=== PATIENT | male | born 1945 | race Caucasian/White ===

== ENCOUNTER → 2020-04-21 13:39 | Outpatient (BNVA) | payer BC, SELFPAY | PROVIDERS: PCP Internal Medicine; Visit Provider Urology | DX: Z76.89 Persons encountering health services in other specified circumstances (principal) ==

== ENCOUNTER → 2020-12-06 08:31 | Outpatient (BNVA) | payer BC, SELFPAY | PROVIDERS: PCP Internal Medicine; Visit Provider Urology ==

== ENCOUNTER → 2021-06-07 10:57 | Outpatient (BNVA) | payer BC, SELFPAY | PROVIDERS: PCP Internal Medicine; Visit Provider Urology ==

== ENCOUNTER → 2022-03-21 13:59 | Outpatient (BNVA) | payer BC, SELFPAY | PROVIDERS: PCP Physician Assistant Medical; Visit Provider Urology | DX: C61 Malignant neoplasm of prostate (principal); C77.2 Secondary and unspecified malignant neoplasm of intra-abdominal lymph nodes | CPT/HCPCS: 51798 ==

== ENCOUNTER 2022-06-25 11:37 | Outpatient (REF) | payer BC, SELFPAY ==
[2022-06-25 13:26] LABS: Prostate Specific Antigen 2.89 ng/mL (<0.05-4.0)
[2022-06-30 20:17] LABS: Testosterone, Total 386 ng/dL (250-1100)
== END 2022-06-25 11:38 | disposition home or self-care (01) ==
LOC: HO.LAB 11:37
PROVIDERS: PCP Physician Assistant Medical; Visit Provider Urology
DX: Z12.5 Encounter for screening for malignant neoplasm of prostate (principal); C61 Malignant neoplasm of prostate; C77.2 Secondary and unspecified malignant neoplasm of intra-abdominal lymph nodes
CPT/HCPCS: 36415; 84153; 84403

== ENCOUNTER → 2022-07-02 10:42 | Outpatient (BNVA) | payer BC, SELFPAY | PROVIDERS: PCP Physician Assistant Medical; Visit Provider Urology | DX: C61 Malignant neoplasm of prostate (principal) ==

== ENCOUNTER → 2022-10-25 13:57 | Outpatient (BNVA) | payer BC, SELFPAY | PROVIDERS: PCP Physician Assistant Medical; Visit Provider Urology ==

== ENCOUNTER 2023-01-29 12:54 | Outpatient (AMB) | payer BC, SELFPAY ==
--- NOTE | 2023-01-29 12:55 | A.OFFVIS_ITS ---
Intake Intake Visit Reasons: 3M PSA/Testo(set) Intake Note: Patient is present for Follow Up Labs Urology Med: Bicalutamide, Finasteride, Oxybutynin, tamsulosin Antibiotic Allergy: none Blood Thinner: Eliquis [facility]acy: [facility] [place] Allergies celecoxib [From CELEBREX] Allergy (Severe, Verified 01/29/23 12:56) HYPOTENSION Medication List - Last Reconciled 01/29/23 by Daniel Duenas MD abiraterone 1,000 mg (4 x 250 mg) PO DAILY 30 days amlodipine 5 mg PO DAILY apixaban (Eliquis) 5 mg PO BID apixaban (Eliquis) 2.5 mg PO BID bicalutamide 50 mg PO DAILY 90 days diltiazem HCl 180 mg PO DAILY diltiazem HCl ER 120 mg PO DAILY doxycycline hyclate 100 mg PO BID finasteride 5 mg PO DAILY 90 days furosemide 20 mg PO DAILY hydralazine 25 mg PO BID hydralazine 50 mg PO TID latanoprost 0.005% 1 drp ophthalmic (eye) BEDTIME lisinopril 40 mg PO DAILY lovastatin 20 mg PO BEDTIME oxybutynin chloride ER 5 mg PO DAILY 90 days prednisone 5 mg PO BID 30 days sodium chloride 1 g PO DAILY sodium chloride 1,000 mg PO DAILY tamsulosin 0.4 mg PO BEDTIME tamsulosin 0.4 mg PO BEDTIME 90 days timolol maleate 0.5% 1 drp ophthalmic (eye) HPI HPI Comments History of Present Illness Details Uzair is a pleasant male. He is a patient of Dr. Brooks. He is seen for the following urologic conditions - prostate cancer - metastatic Continued good energy Cycling abiraterone Will check labs during on month Needs bone density 01/05 PSA 1.2 T 630 11/05 - PSMA Scan - persistent inessa nodule activity less than previously Continues with bicalutamide and cycling abiraterone - PSA 0.5 Continue current therapy Prostate cancer metastatic 03/07 abiraterone reduced to 3 tabs daily - admitted to [facility] with DVT PSA 12/05 2.3, 01/04 4 - doubling time less than 6 months, 03/07 0.8 T 23, 07/08 2.9, 10/06 0.5 Imaging - 12/05 PSMA scan [facility] hilar node positive - 02/04 CT chest no change in apoorva status Did not tolerate prior GnRH injection - had anxiety with gynecomastia Therapeutic plan -01/04 initiate abiraterone for metastatic disease and assessment for targeted radiotherapy 09/01 PSA 1.1, 11/01 PSA 1.3, 04/03 0.9, 08/05 0.3, 12/03 0.3, 04/04 0.2, 12/04 0.1, 06/05 0.3, 12/05 2.3, 01/04 4, 07/08 2.9 T 386, Prostate cancer: Intermediate risk [place] 3 + 4 external beam radiation short- term hormones 01/31 Prostate cancer was diagnosed 08/31 Dr Marvin. Diagnosis was reached by 08/31 , needle biopsy, PSA at diagnosis 8.3. The [place] grade is [place] Unkown - , 3+4 = 7. TNM Classification of Malignant Tumours (TNM) T1c. The D'Laila (NCCN) risk category is Intermediate Risk (PSA 10-20, Gl 7, T2), Group 2. Initial therapy included Primary treatment , External beam radiation with short term hormonal ablation - [facility] [place] 01/31 completed. 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 Surgical History History of surgery Review of Systems Const Denies chills and Denies fever(s) Card Reports no additional complaints and Denies syncope Resp Denies cough GI Denies abdominal pain and Denies heartburn Reports as per HPI and Denies change in libido Neuro Denies syncope Psych Denies change in libido Endo Denies change in libido Physical Exam Const General: cooperative, healthy appearing, comfortable and no acute distress Orientation/consciousness: patient oriented x3 HEENT Face and sinus: Yes normal facial exam Mouth: moist mucous membranes Neck Neck: Yes normal visual inspection, Yes full ROM and Yes trachea midline Chest Chest palpation & inspection: normal inspection of the chest Resp Effort & Inspection: normal respiratory effort, able to speak in complete sentences and no respiratory distress GI Inspection: Yes normal to inspection Back/Spine/Pelvis Cervical Spine: normal cervical lordosis Thoracic/Lumbar Spine: thoracic and lumbar spine normal to inspection Skin General skin exam: no rashes or lesions noted Neuro General: patient oriented x3, gait normal, tone normal and moves all extremities Extrem General: Yes normal to inspection and Yes capillary refill normal Assessment & Plan Assessment & Plan (1) Prostate cancer metastatic to intraabdominal lymph node: Code(s): C61 - Malignant neoplasm of prostate; C77.2 - Secondary and unspecified malignant neoplasm of intra-abdominal lymph nodes (2) Erectile dysfunction following radiation therapy: Code(s): N52.35 - Erectile dysfunction following radiation therapy Plan Three month follow-up labs with imaging Orders: Orders Prostate Specific Antigen 2 Months C61 - Malignant neoplasm of prostate, C77.2 - Secondary and unspecified malignant neoplasm of intra-abdominal lymph nodes, E11.69 - Type 2 diabetes mellitus with other specified complication, N52.1 - Erectile dysfunction due to diseases classified elsewhere Testosterone, Total 2 Months C61 - Malignant neoplasm of prostate, C77.2 - Secondary and unspecified malignant neoplasm of intra-abdominal lymph nodes XR DEXA axial skeleton 2 Months C61 - Malignant neoplasm of prostate, C77.2 - Secondary and unspecified malignant neoplasm of intra-abdominal lymph nodes, M85.80 - Other specified disorders of bone density and structure, unspecified site Patient Instructions: Imaging studies, laboratory and physical exam results were discussed and reviewed in detail. No major barriers to patient understanding were identified. An opportunity to ask questions regarding the treatment plan was provided. All questions were answered. The patient expressed understanding and agreement with the above treatment plan. The patient is aware they should contact our office by phone for worsening of their current condition or the appearance of new urologic symptoms. Compliance is encouraged with any medications and followup testing that is ordered. It is a privilege to participate in the urologic care of your patient. If you have any questions or concerns regarding treatment for the above conditions, or other urologic issues, please do not hesitate to contact me. The office telephone contact is [phone]. This note is constructed using voice recognition software. While every effort has been made to ensure accuracy fws faculty assistant errors may have been included. Yours sincerely, Dr Daniel Duenas MD, ALEJANDRO [facility] - Urology Providers of Expert, Compassionate Care for the Genitourinary System Coding Level of Care Code Est Pt Level 3 (64628) Diagnoses Prostate cancer metastatic to intraabdominal lymph node C61; C77.2 Erectile dysfunction following radiation therapy N52.35
== END 2023-01-29 13:24 | disposition home or self-care (01) ==
PROVIDERS: Visit Provider Urology
DX: C61 Malignant neoplasm of prostate (principal); C77.2 Secondary and unspecified malignant neoplasm of intra-abdominal lymph nodes; N52.35 Erectile dysfunction following radiation therapy
CPT/HCPCS: 99213

== ENCOUNTER → 2023-01-29 12:54 | Outpatient (BNVA) | payer BC, SELFPAY | PROVIDERS: Visit Provider Urology ==

== ENCOUNTER 2023-04-01 12:19 | Outpatient (REF) | payer BC, SELFPAY ==
--- NOTE | ~2023-04-01 | MM_ITS ---
EXAMINATION: BONE DENSITOMETRY CLINICAL INDICATION: Disorders of bone and structures. COMPARISON: This is the patient's baseline examination. TECHNIQUE: Using a [employer] DXA System (software version: 13.1) manufactured by [employer], dual-energy x-ray absorptiometry was performed of the lumbar spine and left hip. The images are of good technical quality. Summary results are attached. FINDINGS: AP SPINE L1-L4: BMD 1.224 g/cm2, Z-score 0.3, T-score 0.0, normal. LEFT FEMUR, NECK: BMD 0.857 g/cm2, Z-score -0.5, T-score -1.6, osteopenia. LEFT FEMUR, TOTAL: BMD 0.773 g/cm2, Z-score -1.6, T-score -2.3, osteopenia. IDENTIFIED RISK FACTORS: History of adult fracture. HISTORY OF FRACTURE: Wrist. MEDICATIONS: None listed. MM/XR DEXA axial skeleton IMPRESSION: 1. DIAGNOSIS: Osteopenia based on the lowest T-score value of -2.3 in the total femur applying World Health Organization criteria. 2. 10-YEAR FRACTURE RISK PREDICTION, FRAX: Major osteoporotic fracture (clinical spine, forearm, hip or shoulder) 11.1%. Hip fracture 3.3%. 3. Treatment Recommendations: NOF guidelines recommend consideration for treatment in postmenopausal women and men age 50 and older presenting with the following: -A hip or vertebral (clinical or morphometric) fracture. -T-score less than or equal to -2.5 at the femoral neck or spine after appropriate evaluation to exclude secondary causes. -Low bone mass at the hip or spine and a 10-year fracture probability by FRAX of greater than or equal to 3% for hip fracture or greater than or equal to 20% for major osteoporotic fracture based on the [place] adapted WHO algorithm. 4. Other Recommendations: All treatment decisions require clinical judgment and consideration of individual patient factors, including patient preferences, comorbidities, previous drug use, risk factors not captured in the FRAX model (e.g. frailty, falls, vitamin D deficiency, increased bone turnover, interval significant decline in bone density) and possible under or overestimation of fracture risk by FRAX. Additional medical evaluation for secondary cause of low bone mineral density may be appropriate. FUTURE SCAN RECOMMENDATION: People with diagnosed cases of osteoporosis or at high risk for fracture should have regular bone mineral density tests. For patients eligible for Medicare, routine testing is allowed once every 2 years. The testing frequency can be increased to one year for patients who have rapidly progressing disease, those who are receiving or discontinuing medical therapy to restore bone mass, or have additional risk factors.
[2023-04-01 14:43] LABS: Prostate Specific Antigen 2.41 ng/mL (<0.05-4.0)
[2023-04-04 13:19] LABS: Testosterone, Total 633 ng/dL (250-1100)
== END 2023-04-01 12:20 | disposition home or self-care (01) ==
LOC: HO.MAMMO 12:19
PROVIDERS: PCP Physician Assistant Medical; Visit Provider Urology
DX: Z13.820 Encounter for screening for osteoporosis (principal); Z12.5 Encounter for screening for malignant neoplasm of prostate; M85.852 Other specified disorders of bone density and structure, left thigh; C61 Malignant neoplasm of prostate; C77.2 Secondary and unspecified malignant neoplasm of intra-abdominal lymph nodes; E11.69 Type 2 diabetes mellitus with other specified complication; N52.1 Erectile dysfunction due to diseases classified elsewhere
CPT/HCPCS: 36415; 77080; 84153; 84403

== ENCOUNTER 2023-04-11 08:44 | Outpatient (AMB) | payer BC, SELFPAY ==
--- NOTE | 2023-04-11 08:45 | MHC.OFFVIS ---
Intake Intake Visit Reasons: follow up/labs/bone density(set) Intake Note: Patient is Present for Telephone Follow Up Urology Med: Tamsulosin,Oxybutynin, Finasteride,Bicalutamide, Abiraterone Antibiotic Allergy: None Blood Thinner: Eliquis [facility] Allergies celecoxib [From CELEBREX] Allergy (Severe, Verified 04/11/23 08:47) HYPOTENSION Medication List - Last Reconciled 04/11/23 by Daniel Duenas MD abiraterone 1,000 mg (4 x 250 mg) PO DAILY 30 days amlodipine 5 mg PO DAILY apixaban (Eliquis) 5 mg PO BID apixaban (Eliquis) 2.5 mg PO BID bicalutamide 50 mg PO DAILY 90 days diltiazem HCl 180 mg PO DAILY diltiazem HCl ER 120 mg PO DAILY doxycycline hyclate 100 mg PO BID finasteride 5 mg PO DAILY 90 days furosemide 20 mg PO DAILY hydralazine 25 mg PO BID hydralazine 50 mg PO TID latanoprost 0.005% 1 drp ophthalmic (eye) BEDTIME lisinopril 40 mg PO DAILY lovastatin 20 mg PO BEDTIME oxybutynin chloride ER 5 mg PO DAILY 90 days prednisone 5 mg PO BID 30 days sodium chloride 1 g PO DAILY sodium chloride 1,000 mg PO DAILY tamsulosin 0.4 mg PO BEDTIME tamsulosin 0.4 mg PO BEDTIME 90 days timolol maleate 0.5% 1 drp ophthalmic (eye) HPI HPI Comments History of Present Illness Details Uzair is a pleasant male. He is a patient of Dr. Brooks. He is seen for the following urologic conditions - prostate cancer - metastatic Telemedicine Evaluation 15 min Consultation Doximity Noe Video attempted Cycling abiraterone Bone density shows osteopenia Recommend Citracal Has been feeling weak despite testosterone 633 Repeat lab work with PSMA scan in 3 months 04/07 P2.4 T 633 01/05 PSA 1.2 T 630 11/05 - PSMA Scan - persistent inessa nodule activity less than previously Continues with bicalutamide and cycling abiraterone - PSA 0.5 Continue current therapy Prostate cancer metastatic 03/07 abiraterone reduced to 3 tabs daily - admitted to [facility] with DVT PSA 12/05 2.3, 01/04 4 - doubling time less than 6 months, 03/07 0.8 T 23, 07/08 2.9, 10/06 0.5 Imaging - 12/05 PSMA scan [facility] hilar node positive - 02/04 CT chest no change in apoorva status Did not tolerate prior GnRH injection - had anxiety with gynecomastia Therapeutic plan -01/04 initiate abiraterone for metastatic disease and assessment for targeted radiotherapy 09/01 PSA 1.1, 11/01 PSA 1.3, 04/03 0.9, 08/05 0.3, 12/03 0.3, 04/04 0.2, 12/04 0.1, 06/05 0.3, 12/05 2.3, 01/04 4, 07/08 2.9 T 386, Prostate cancer: Intermediate risk [place] 3 + 4 external beam radiation short-term hormones 01/31 Prostate cancer was diagnosed 08/31 Dr Marvin. Diagnosis was reached by 08/31 , needle biopsy, PSA at diagnosis 8.3. The [place] grade is [place] Unkown - , 3+4 = 7. TNM Classification of Malignant Tumours (TNM) T1c. The [place]aila (NCCN) risk category is Intermediate Risk (PSA 10-20, Gl 7, T2), Group 2. Initial therapy included Primary treatment , External beam radiation with short term hormonal ablation - [facility] [place] 01/31 completed. 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 Prostate cancer Surgical History History of surgery Assessment & Plan Assessment & Plan (1) Prostate cancer metastatic to intraabdominal lymph node: Code(s): C61 - Malignant neoplasm of prostate; C77.2 - Secondary and unspecified malignant neoplasm of intra-abdominal lymph nodes (2) Erectile dysfunction following radiation therapy: Code(s): N52.35 - Erectile dysfunction following radiation therapy Plan Three month follow-up imaging and labs Orders: Orders PET CT fusion skull to thigh 3 Months C61 - Malignant neoplasm of prostate, C77.2 - Secondary and unspecified malignant neoplasm of intra-abdominal lymph nodes Prostate Specific Antigen 3 Months C61 - Malignant neoplasm of prostate, C77.2 - Secondary and unspecified malignant neoplasm of intra-abdominal lymph nodes Testosterone, Total 3 Months C61 - Malignant neoplasm of prostate, C77.2 - Secondary and unspecified malignant neoplasm of intra-abdominal lymph nodes Patient Instructions: Imaging studies, laboratory and physical exam results were discussed and reviewed in detail. No major barriers to patient understanding were identified. An opportunity to ask questions regarding the treatment plan was provided. All questions were answered. The patient expressed understanding and agreement with the above treatment plan. The patient is aware they should contact our office by phone for worsening of their current condition or the appearance of new urologic symptoms. Compliance is encouraged with any medications and followup testing that is ordered. It is a privilege to participate in the urologic care of your patient. If you have any questions or concerns regarding treatment for the above conditions, or other urologic issues, please do not hesitate to contact me. The office telephone contact is [phone]. This note is constructed using voice recognition software. While every effort has been made to ensure accuracy utility repairer errors may have been included. Yours sincerely, Dr Daniel Duenas MD, ALEJANDRO [facility] - Urology Providers of Expert, Compassionate Care for the Genitourinary System Telehealth Telehealth Location of provider rendering services: practice address Location of patient: address on file Patient Identification confirmed using: Name, : Yes Telehealth method: video Patient verbally consented to treatment: Yes Patient verbally consented to billing insurance company: Yes Patient informed of any privacy concerns related to visit: Yes Coding Level of Care Code Tele Est Pt Level 3 (11848) Diagnoses Prostate cancer metastatic to intraabdominal lymph node C61; C77.2 Erectile dysfunction following radiation therapy N52.35
== END 2023-04-11 09:38 | disposition home or self-care (01) ==
LOC: HO.HUSH 08:44
PROVIDERS: PCP Physician Assistant Medical; Visit Provider Urology
DX: C61 Malignant neoplasm of prostate (principal); C77.2 Secondary and unspecified malignant neoplasm of intra-abdominal lymph nodes; N52.35 Erectile dysfunction following radiation therapy
CPT/HCPCS: 99213

== ENCOUNTER → 2023-04-11 08:44 | Outpatient (BNVA) | payer BC, SELFPAY | PROVIDERS: PCP Physician Assistant Medical; Visit Provider Urology ==

== ENCOUNTER 2023-08-28 09:59 | Outpatient (AMB) | payer BC, SELFPAY ==
--- NOTE | 2023-08-28 09:59 | A.OFFVIS_ITS ---
Intake Intake Visit Reasons: PET/CT/PSA(SET) Intake Note: Patient presents today for a telehealth follow-up on Imaging and PSA Meds- Finasteride, Tamsulosin, Allergies to Antibiotic- No Known Allergies Blood Thinner- Eliquis Jump Roll Operator Required: No Allergies celecoxib [From CELEBREX] Allergy (Severe, Verified 08/28/23 10:01) HYPOTENSION Medication List - Last Reconciled 08/28/23 by Daniel Duenas MD abiraterone 1,000 mg (4 x 250 mg) PO DAILY 30 days amlodipine 5 mg PO DAILY apixaban (Eliquis) 5 mg PO BID apixaban (Eliquis) 2.5 mg PO BID bicalutamide 50 mg PO DAILY 90 days diltiazem HCl 180 mg PO DAILY diltiazem HCl ER 120 mg PO DAILY doxycycline hyclate 100 mg PO BID finasteride 5 mg PO DAILY 90 days furosemide 20 mg PO DAILY hydralazine 25 mg PO BID hydralazine 50 mg PO TID latanoprost 0.005% 1 drp ophthalmic (eye) BEDTIME lisinopril 40 mg PO DAILY lovastatin 20 mg PO BEDTIME oxybutynin chloride ER 5 mg PO DAILY 90 days prednisone 5 mg PO BID 30 days sodium chloride 1 g PO DAILY sodium chloride 1,000 mg PO DAILY tamsulosin 0.4 mg PO BEDTIME tamsulosin 0.4 mg PO BEDTIME 90 days timolol maleate 0.5% 1 drp ophthalmic (eye) HPI HPI Comments History of Present Illness Details Uzair is a pleasant male. He is a patient of Dr. Reyes. He is seen for the following urologic conditions - prostate cancer - metastatic - oncology Dr Mook Everett Telemedicine Evaluation 15 min Consultation DoximBarnacle Noe Video attempted Has upcoming lung biopsy to determine if node is prostate cancer versus lung cancer Has seen Dr. Delvalle in oncology Marguerite Stopped abiraterone since has weakness and instability of gait Does not tolerate GnRH secondary to increased anxiety Working with oncology to find secondary options for chemotherapy Three-month follow-up PSA/T 08/09 8.0 PSMA - similar activity pattern with persistent hilar nodule, persistent abdominal nodule both less than 1 cm. New activity within prostate. Rise in PSA likely due to stopping abiraterone 04/07 P2.4 T 633 01/05 PSA 1.2 T 630 11/05 - PSMA Scan - persistent hilar nodu le activity less than previously Continues with bicalutamide and cycling abiraterone - PSA 0.5 Continue current therapy Prostate cancer metastatic 03/07 abiraterone reduced to 3 tabs daily - admitted to [facility] with DVT PSA 12/05 2.3, 01/04 4 - doubling time less than 6 months, 03/07 0.8 T 23, 07/08 2.9, 10/06 0.5 Imaging - 12/05 PSMA scan [facility] hilar no de positive - 02/04 CT chest no change in apoorva statu s Did not tolerate prior GnRH injection - had anxiety with gynecomastia Therapeutic plan -01/04 initiate abiraterone for metastati c disease and assessment for targeted radiotherapy 09/01 PSA 1.1, 11/01 PSA 1.3, 04/03 0.9, 0.3, 12/03 0.3, 04/04 0.2, 12/04 0.1, 06/05 0.3, 12/05 2.3, 01/04 4, 07/08 2.9 T 386, Prostate cancer: Intermediate risk [place] 3 + 4 external beam radiation short- term hormones 01/31 Prostate cancer was diagnosed 08/31 Dr Marvin. Diagnosis was reached by 08/31 , needle biopsy, PSA at diagnosis 8.3. The [place] grade is [place] Unkown - , 3+4 = 7. TNM Classification of Malignant Tumours (TNM) T1c. The [place] (NCCN) risk category is Intermediate Risk (PSA 10-20, Gl 7, T2), Group 2. Initial therapy included Primary treatment , External beam radiation with short term hormonal ablation - [facility] 01/31 completed. 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 Prostate cancer Surgical History History of surgery Review of Systems Const All systems reviewed & are unremarkable except as noted in HPI and below Reports no additional complaints Resp Reports no additional complaints GI Reports no additional complaints Reports as per HPI Musc Reports no additional complaints Physical Exam Telemedicine evaluation Appropriate responses Regular breathing rate and rhythm HEENT Head: Yes normal to inspection Ears: hearing grossly normal bilaterally Eyes General: appearance normal, both eyes and all related structures Neck Neck: Yes normal visual inspection Chest Chest palpation & inspection: normal inspection of the chest Resp Effort & Inspection: normal respiratory effort and able to speak in complete sentences Assessment & Plan Assessment & Plan (1) Prostate cancer metastatic to intraabdominal lymph node: Code(s): C61 - Malignant neoplasm of prostate; C77.2 - Secondary and unspecified malignant neoplasm of intra-abdominal lymph nodes Plan Three month follow-up lab work Orders: Orders Prostate Specific Antigen 3 Months C61 - Malignant neoplasm of prostate, C77.2 - Secondary and unspecified malignant neoplasm of intra-abdominal lymph nodes Testosterone, Total 3 Months C61 - Malignant neoplasm of prostate, C77.2 - Secondary and unspecified malignant neoplasm of intra-abdominal lymph nodes Patient Instructions: Imaging studies, laboratory and physical exam results were discussed and reviewed in detail. No major barriers to patient understanding were identified. An opportunity to ask questions regarding the treatment plan was provided. All questions were answered. The patient expressed understanding and agreement with the above treatment plan. The patient is aware they should contact our office by phone for worsening of their current condition or the appearance of new urologic symptoms. Compliance is encouraged with any medications and followup testing that is ordered. It is a privilege to participate in the urologic care of your patient. If you have any questions or concerns regarding treatment for the above conditions, or other urologic issues, please do not hesitate to contact me. The office telephone contact is [phone]. This note is constructed using voice recognition software. While every effort has been made to ensure accuracy fine craft artist errors may have been included. Yours sincerely, Dr Daniel Duenas MD, ALEJANDRO [facility] - Urology Providers of Expert, Compassionate Care for the Genitourinary System Telehealth Telehealth Location of provider rendering services: practice address Location of patient: address on file Patient Identification confirmed using: Name, : Yes Telehealth method: video Patient verbally consented to treatment: Yes Patient verbally consented to billing insurance company: Yes Patient informed of any privacy concerns related to visit: Yes Coding Level of Care Code Tele Est Pt Level 3 (48471) Diagnoses Prostate cancer metastatic to intraabdominal lymph node C61; C77.2
== END 2023-08-28 11:01 | disposition home or self-care (01) ==
LOC: HO.HUSH 09:59
PROVIDERS: PCP Physician Assistant Medical; Visit Provider Urology
DX: C61 Malignant neoplasm of prostate (principal); C77.2 Secondary and unspecified malignant neoplasm of intra-abdominal lymph nodes
CPT/HCPCS: 99213

== ENCOUNTER → 2023-08-28 09:59 | Outpatient (BNVA) | payer BC, SELFPAY | PROVIDERS: PCP Physician Assistant Medical; Visit Provider Urology ==

== ENCOUNTER 2023-11-20 13:52 | Outpatient (REF) | payer BC, SELFPAY ==
[2023-11-20 15:50] LABS: Prostate Specific Antigen 14.47 ng/mL (<0.05-4.0)
[2023-11-27 14:58] LABS: Testosterone, Free 50.7 pg/mL (30.0-135.0); Testosterone, Total 433 ng/dL (250-1100)
== END 2023-11-20 13:53 | disposition home or self-care (01) ==
LOC: HO.LAB 13:52
PROVIDERS: PCP Physician Assistant Medical; Visit Provider Urology
DX: C61 Malignant neoplasm of prostate (principal); C77.2 Secondary and unspecified malignant neoplasm of intra-abdominal lymph nodes; Z12.5 Encounter for screening for malignant neoplasm of prostate
CPT/HCPCS: 36415; 84153; 84402; 84403

== ENCOUNTER 2023-11-26 13:31 | Outpatient (AMB) | payer BC, SELFPAY ==
--- NOTE | 2023-11-26 13:46 | MHC.OFFVIS ---
Intake Visit Reasons: 3m/PSA/Testo(set) Intake Note: Patient is Present for Follow Up Urology Medication:Finasteride, Oxybutynin,Tamsulosin (No longer on Abiraterone/Bicalutamide) Antibiotic Allergies: None Blood Thinners:Eliquis Allergies celecoxib [From CELEBREX] Allergy (Severe, Verified 11/26/23 13:51) HYPOTENSION HPI Comments Details: Uzair is a pleasant male. He is a patient of Dr. Reyes. He is seen for the following urologic conditions - prostate cancer - metastatic - oncology Dr Mook Everett 12/07 PSA 14 Has PET-CT scan in January with Dr Delvalle Did discuss potentially trialing Enzalutamide See in 3 months with lab work Has seen Dr. Delvalle in oncology [facility] Stopped abiraterone since has weakness and instability of gait Does not tolerate GnRH secondary to increased anxiety Working with oncology to find secondary options for chemotherapy 08/09 8.0 PSMA - similar activity pattern with persistent hilar nodule, persistent abdominal nodule both less than 1 cm. New activity within prostate. Rise in PSA likely due to stopping abiraterone 04/07 P2.4 T 633 DEXA - osteopenia 01/05 PSA 1.2 T 630 11/05 - PSMA Scan - persistent hilar nodule activity less than previously Continues with bicalutamide and cycling abiraterone - PSA 0.5 Continue current therapy Prostate cancer metastatic 03/07 abiraterone reduced to 3 tabs daily - admitted to [facility] with DVT PSA 12/05 2.3, 01/04 4 - doubling time less than 6 months, 03/07 0.8 T 23, 07/08 2.9, 10/06 0.5 Imaging - 12/05 PSMA scan [facility] hilar node positive - 02/04 CT chest no change in apoorva status Did not tolerate prior GnRH injection - had anxiety with gynecomastia Therapeutic plan -01/04 initiate abiraterone for metastatic disease and assessment for targeted radiotherapy 09/01 PSA 1.1, 11/01 PSA 1.3, 04/03 0.9, 08/05 0.3, 12/03 0.3, 04/04 0.2, 12/04 0.1, 06/05 0.3, 12/05 2.3, 01/04 4, 07/08 2.9 T 386, Prostate cancer: Intermediate risk Lorie 3 + 4 external beam radiation short-term hormones 01/31 Prostate cancer was diagnosed 08/31 Dr Marvin. Diagnosis was reached by 08/31 , needle biopsy, PSA at diagnosis 8.3. The [place] grade is [place] Unkown - , 3+4 = 7. TNM Classification of Malignant Tumours (TNM) T1c. The D'Laila (NCCN) risk category is Intermediate Risk (PSA 10-20, Gl 7, T2), Group 2. Initial therapy included Primary treatment , External beam radiation with short term hormonal ablation - [facility] 01/31 completed. 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 Prostate cancer Surgical History History of surgery Review of Systems Const Denies chills and Denies fever(s) Card Reports no additional complaints and Denies syncope Resp Denies cough GI Denies abdominal pain and Denies heartburn Reports as per HPI and Denies change in libido Neuro Denies syncope Psych Denies change in libido Endo Denies change in libido Physical Exam Const General: cooperative, healthy appearing, comfortable and no acute distress Orientation/consciousness: patient oriented x3 HEENT Face and sinus: Yes normal facial exam Mouth: moist mucous membranes Neck Neck: Yes normal visual inspection, Yes full ROM and Yes trachea midline Chest Chest palpation & inspection: normal inspection of the chest Resp Effort & Inspection: normal respiratory effort, able to speak in complete sentences and no respiratory distress GI Inspection: Yes normal to inspection Back/Spine/Pelvis Cervical Spine: normal cervical lordosis Thoracic/Lumbar Spine: thoracic and lumbar spine normal to inspection Skin General skin exam: no rashes or lesions noted Neuro General: patient oriented x3, gait normal, tone normal and moves all extremities Extrem General: Yes normal to inspection and Yes capillary refill normal Assessment & Plan Assessment & Plan (1) Prostate cancer metastatic to intraabdominal lymph node: Code(s): C61 - Malignant neoplasm of prostate; C77.2 - Secondary and unspecified malignant neoplasm of intra-abdominal lymph nodes Category: Medical (2) Prostate cancer: Comment: Gl 3+4 with XRT Code(s): C61 - Malignant neoplasm of prostate Category: Medical Plan Three-month follow-up labs Orders: Orders PSA,Total (Free>4and<10) 3 Months C61 - Malignant neoplasm of prostate, C77.2 - Secondary and unspecified malignant neoplasm of intra-abdominal lymph nodes Patient Instructions: Imaging studies, laboratory and physical exam results were discussed and reviewed in detail. No major barriers to patient understanding were identified. An opportunity to ask questions regarding the treatment plan was provided. All questions were answered. The patient expressed understanding and agreement with the above treatment plan. The patient is aware they should contact our office by phone for worsening of their current condition or the appearance of new urologic symptoms. Compliance is encouraged with any medications and followup testing that is ordered. It is a privilege to participate in the urologic care of your patient. If you have any questions or concerns regarding treatment for the above conditions, or other urologic issues, please do not hesitate to contact me. The office telephone contact is [phone]. This note is constructed using voice recognition software. While every effort has been made to ensure accuracy web press roll tender errors may have been included. Yours sincerely, Dr Daniel Duenas MD, [facility] - Urology Providers of Expert, Compassionate Care for the Genitourinary System Coding Level of Care Code Est Pt Level 3 (87643) Diagnoses Prostate cancer metastatic to intraabdominal lymph node C61; C77.2 Prostate cancer C61
== END 2023-11-26 14:32 | disposition home or self-care (01) ==
PROVIDERS: PCP Physician Assistant Medical; Visit Provider Urology
DX: C61 Malignant neoplasm of prostate (principal); C77.2 Secondary and unspecified malignant neoplasm of intra-abdominal lymph nodes
CPT/HCPCS: 99213

== ENCOUNTER → 2023-11-26 13:31 | Outpatient (BNVA) | payer BC, SELFPAY | PROVIDERS: PCP Physician Assistant Medical; Visit Provider Urology ==

== ENCOUNTER 2024-03-25 09:12 | Outpatient (AMB) | payer BC, SELFPAY ==
--- NOTE | 2024-03-25 09:12 | A.OFFVIS_ITS ---
Intake Visit Reasons: 3M PSA(set)Elevated Intake Note: Patient is Present for Telephone Follow Up PSA Urology Med: Bicalutamide, oxybutynin, tamsulosin, Finasteride Antibiotic Allergy:None Blood Thinner:Eliquis Recent PSA: 03/16/2024 PSA: 40.4 Deoiling Machine Operator Required: No Accompanied by: Self / Same As Patient Allergies celecoxib [From CELEBREX] Allergy (Severe, Verified 03/25/24 09:14) HYPOTENSION HPI Comments Details: Uzair is a pleasant male. He is a patient of Dr. Reyes. He is seen for the following urologic conditions - prostate cancer - metastatic - oncology Dr Mook Everett Telemedicine Evaluation 15 min Consultation [employer] Noe Video 04/08 PSA 40 Discussed rising PSA PET-CT was denied that he had planned with Prescription for enzalutamide placed Encouraged him to see oncologist within the next 3 months Three-month follow-up lab work 12/07 PSA 14 Has PET-CT scan in January with Dr Delvalle Did discuss potentially trialing Enzalutamide See in 3 months with lab work Has seen Dr. Delvalle in oncology [facility] Stopped abiraterone since has weakness and instability of gait Does not tolerate GnRH secondary to increased anxiety Working with oncology to find secondary options for chemotherapy 08/09 8.0 PSMA - similar activity pattern with persistent hilar nodule, persistent abdominal nodule both less than 1 cm. New activity within prostate. Rise in PSA likely due to stopping abiraterone 04/07 P2.4 T 633 DEXA - osteopenia 01/05 PSA 1.2 T 630 11/05 - PSMA Scan - persistent hilar nodule activity less than previously Continues with bicalutamide and cycling abiraterone - PSA 0.5 Continue current therapy Prostate cancer metastatic 03/07 abiraterone reduced to 3 tabs daily - admitted to [facility] with DVT PSA 12/05 2.3, 01/04 4 - doubling time less than 6 months, 03/07 0.8 T 23, 07/08 2.9, 10/06 0.5 Imaging - 12/05 PSMA scan [facility] hilar node positive - 02/04 CT chest no change in apoorva status Did not tolerate prior GnRH injection - had anxiety with gynecomastia Therapeutic plan -01/04 initiate abiraterone for metastatic disease and assessment for targeted radiotherapy 09/01 PSA 1.1, 11/01 PSA 1.3, 04/03 0.9, 08/05 0.3, 12/03 0.3, 04/04 0.2, 12/04 0.1, 06/05 0.3, 12/05 2.3, 01/04 4, 07/08 2.9 T 386, Prostate cancer: Intermediate risk Lorie 3 + 4 external beam radiation short- term hormones 01/31 Prostate cancer was diagnosed 08/31 Dr Marvin. Diagnosis was reached by 08/31 , needle biopsy, PSA at diagnosis 8.3. The Lorie grade is [place] Unkown - , 3+4 = 7. TNM Classification of Malignant Tumours (TNM) T1c. The D'Laila (NCCN) risk category is Intermediate Risk (PSA 10-20, Gl 7, T2), Group 2. Initial therapy included Primary treatment , External beam radiation with short term hormonal ablation - [facility] 01/31 completed. 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 Prostate cancer Surgical History History of surgery Review of Systems Const All systems reviewed & are unremarkable except as noted in HPI and below Reports no additional complaints Resp Reports no additional complaints GI Reports no additional complaints Reports as per HPI Musc Reports no additional complaints Physical Exam Telemedicine evaluation Appropriate responses Regular breathing rate and rhythm HEENT Head: Yes normal to inspection Ears: hearing grossly normal bilaterally Eyes General: appearance normal, both eyes and all related structures Neck Neck: Yes normal visual inspection Chest Chest palpation & inspection: normal inspection of the chest Resp Effort & Inspection: normal respiratory effort and able to speak in complete sentences Telehealth Telehealth Telehealth Platform: [employer] Location of provider rendering services: practice address Location of patient: address on file Patient Identification confirmed using: Name, : Yes Telehealth method: video Patient verbally consented to treatment: Yes Patient verbally consented to billing insurance company: Yes Patient informed of any privacy concerns related to visit: Yes Minutes spent on Phone/Video with Pt.: 15 Assessment & Plan Assessment & Plan (1) Prostate cancer metastatic to intraabdominal lymph node: Code(s): C61 - Malignant neoplasm of prostate; C77.2 - Secondary and unspecified malignant neoplasm of intra-abdominal lymph nodes Category: Medical Plan Bone scan Start enzalutamide Three-month follow-up Orders: Orders Testosterone, Total 3 Months C61 - Malignant neoplasm of prostate, C77.2 - Secondary and unspecified malignant neoplasm of intra-abdominal lymph nodes NM bone scan whole body Today C61 - Malignant neoplasm of prostate, C77.2 - Secondary and unspecified malignant neoplasm of intra-abdominal lymph nodes, C79.51 - Secondary malignant neoplasm of bone Prostate Specific Antigen 3 Months C61 - Malignant neoplasm of prostate, C77.2 - Secondary and unspecified malignant neoplasm of intra-abdominal lymph nodes Medications: New enzalutamide 160 mg (2 x 80 mg) PO DAILY 30 days 60 tabs 5RF metastatic prostate cancer C61 - Malignant neoplasm of prostate, C77.2 - Secondary and unspecified malignant neoplasm of intra-abdominal lymph nodes Discontinued abiraterone must be taken on empty stomach, at least 1 hr before or 2 hrs after a meal/food Discontinued Reason: Patient Completed Course 1,000 mg (4 x 250 mg) PO DAILY 30 days 120 tabs 5RF C61 - Malignant neoplasm of prostate, C77.2 - Secondary and unspecified malignant neoplasm of intra-abdominal lymph nodes Patient Instructions: Imaging studies, laboratory and physical exam results were discussed and reviewed in detail. No major barriers to patient understanding were identified. An opportunity to ask questions regarding the treatment plan was provided. All questions were answered. The patient expressed understanding and agreement with the above treatment plan. The patient is aware they should contact our office by phone for worsening of their current condition or the appearance of new urologic symptoms. Compliance is encouraged with any medications and followup testing that is ordered. It is a privilege to participate in the urologic care of your patient. If you have any questions or concerns regarding treatment for the above conditions, or other urologic issues, please do not hesitate to contact me. The office telephone contact is [phone]. This note is constructed using voice recognition software. While every effort has been made to ensure accuracy steam plant operator errors may have been included. Yours sincerely, Dr Daniel Duenas MD, [facility] - Urology Providers of Expert, Compassionate Care for the Genitourinary System Coding Level of Care Code Tele Est Pt Level 4 (79207) Diagnoses Prostate cancer metastatic to intraabdominal lymph node C61; C77.2
== END 2024-03-25 10:25 | disposition home or self-care (01) ==
LOC: HO.HUSH 09:12
PROVIDERS: PCP Physician Assistant Medical; Visit Provider Urology
DX: C61 Malignant neoplasm of prostate (principal); C77.2 Secondary and unspecified malignant neoplasm of intra-abdominal lymph nodes
CPT/HCPCS: 99214

== ENCOUNTER → 2024-03-25 09:12 | Outpatient (BNVA) | payer BC, SELFPAY | PROVIDERS: PCP Physician Assistant Medical; Visit Provider Urology ==

== ENCOUNTER 2024-05-12 08:29 | Outpatient (AMB) | payer BC, SELFPAY ==
--- NOTE | 2024-05-12 08:30 | MHC.OFFVIS ---
Intake Visit Reasons: Urgent: PSA Follow up(Elevated) Intake Note: Patient is present for PSA Urology Med: Bicalutamide, Oxybutynin, Tamsulosin, Finasteride Antibiotic Allergy: None Blood Thinner: Eliquis PSA: 04/27/24- 38.11 Blood Bank Coordinator Required: No Accompanied by: Self / Same As Patient Allergies celecoxib [From CELEBREX] Allergy (Severe, Verified 05/12/24 08:30) HYPOTENSION HPI Comments Details: Uzair is a pleasant male. He is a patient of Dr. Reyes. He is seen for the following urologic conditions - prostate cancer - metastatic - oncology Dr Mook Everett Telemedicine Evaluation 15 min Consultation [employer] Started enzalutamide a few weeks ago Tolerating much better than abiraterone PSA has fallen slightly Will review in three-month 05/09 PSA 38 04/08 PSA 40 Discussed rising PSA PET-CT was denied that he had planned with Prescription for enzalutamide placed Encouraged him to see oncologist within the next 3 months Three-month follow-up lab work 12/07 PSA 14 Has PET-CT scan in January with Dr Delvalle Did discuss potentially trialing Enzalutamide See in 3 months with lab work Has seen Dr. Delvalle in oncology [facility] Stopped abiraterone since has weakness and instability of gait Does not tolerate GnRH secondary to increased anxiety Working with oncology to find secondary options for chemotherapy 08/09 8.0 PSMA - similar activity pattern with persistent hilar nodule, persistent abdominal nodule both less than 1 cm. New activity within prostate. Rise in PSA likely due to stopping abiraterone 04/07 P2.4 T 633 DEXA - osteopenia 01/05 PSA 1.2 T 630 11/05 - PSMA Scan - persistent hilar nodule activity less than previously Continues with bicalutamide and cycling abiraterone - PSA 0.5 Continue current therapy Prostate cancer metastatic 03/07 abiraterone reduced to 3 tabs daily - admitted to [facility] with DVT PSA 12/05 2.3, 01/04 4 - doubling time less than 6 months, 03/07 0.8 T 23, 07/08 2.9, 10/06 0.5 Imaging - 12/05 PSMA scan [facility] hilar node positive - 02/04 CT chest no change in apoorva status Did not tolerate prior GnRH injection - had anxiety with gynecomastia Therapeutic plan -01/04 initiate abiraterone for metastatic disease and assessment for targeted radiotherapy 09/01 PSA 1.1, 11/01 PSA 1.3, 04/03 0.9, 08/05 0.3, 12/03 0.3, 04/04 0.2, 12/04 0.1, 06/05 0.3, 12/05 2.3, 01/04 4, 07/08 2.9 T 386, Prostate cancer: Intermediate risk Lorie 3 + 4 external beam radiation short-term hormones 01/31 Prostate cancer was diagnosed 08/31 Dr Marvin. Diagnosis was reached by 08/31 , needle biopsy, PSA at diagnosis 8.3. The [place] grade is [place] Unkown - , 3+4 = 7. TNM Classification of Malignant Tumours (TNM) T1c. The D'Laila (NCCN) risk category is Intermediate Risk (PSA 10-20, Gl 7, T2), Group 2. Initial therapy included Primary treatment , External beam radiation with short term hormonal ablation - [facility] 01/31 completed. 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 Prostate cancer Surgical History History of surgery Review of Systems Const All systems reviewed & are unremarkable except as noted in HPI and below Reports no additional complaints Resp Reports no additional complaints GI Reports no additional complaints Reports as per HPI Musc Reports no additional complaints Physical Exam Telemedicine evaluation Appropriate responses Regular breathing rate and rhythm HEENT Head: Yes normal to inspection Ears: hearing grossly normal bilaterally Eyes General: appearance normal, both eyes and all related structures Neck Neck: Yes normal visual inspection Chest Chest palpation & inspection: normal inspection of the chest Resp Effort & Inspection: normal respiratory effort and able to speak in complete sentences Telehealth Telehealth [facility]health [facility] Location of provider rendering services: practice address Location of patient: address on file Patient Identification confirmed using: Name, : Yes Telehealth method: video Patient verbally consented to treatment: Yes Patient verbally consented to billing insurance company: Yes Patient informed of any privacy concerns related to visit: Yes Minutes spent on Phone/Video with Pt.: 15 Assessment & Plan Assessment & Plan (1) Prostate cancer: Comment: Gl 3+4 with XRT Code(s): C61 - Malignant neoplasm of prostate Category: Medical (2) Prostate cancer metastatic to intraabdominal lymph node: Code(s): C61 - Malignant neoplasm of prostate; C77.2 - Secondary and unspecified malignant neoplasm of intra-abdominal lymph nodes Category: Medical Plan Three-month follow-up lab work Orders: Orders Prostate Specific Antigen 3 Months C61 - Malignant neoplasm of prostate, C77.2 - Secondary and unspecified malignant neoplasm of intra-abdominal lymph nodes Testosterone, Total 3 Months C61 - Malignant neoplasm of prostate, C77.2 - Secondary and unspecified malignant neoplasm of intra-abdominal lymph nodes Patient Instructions: Imaging studies, laboratory and physical exam results were discussed and reviewed in detail. No major barriers to patient understanding were identified. An opportunity to ask questions regarding the treatment plan was provided. All questions were answered. The patient expressed understanding and agreement with the above treatment plan. The patient is aware they should contact our office by phone for worsening of their current condition or the appearance of new urologic symptoms. Compliance is encouraged with any medications and followup testing that is ordered. It is a privilege to participate in the urologic care of your patient. If you have any questions or concerns regarding treatment for the above conditions, or other urologic issues, please do not hesitate to contact me. The office telephone contact is [phone]. This note is constructed using voice recognition software. While every effort has been made to ensure accuracy precision instrument maker and repairer errors may have been included. Yours sincerely, Dr Daniel Duenas MD, [facility] - Urology Providers of Expert, Compassionate Care for the Genitourinary System Coding Level of Care Code Tele Est Pt Level 3 (66921) Diagnoses Prostate cancer C61 Prostate cancer metastatic to intraabdominal lymph node C61; C77.2
== END 2024-05-12 12:16 | disposition home or self-care (01) ==
LOC: HO.HUSH 08:29
PROVIDERS: PCP Physician Assistant Medical; Visit Provider Urology
DX: C61 Malignant neoplasm of prostate (principal); C77.2 Secondary and unspecified malignant neoplasm of intra-abdominal lymph nodes
CPT/HCPCS: 99213

== ENCOUNTER → 2024-05-12 09:50 | Outpatient (REF) | payer BC, SELFPAY ==
--- NOTE | ~2024-05-12 | NM_ITS ---
EXAMINATION: NM BONE SCAN OF THE WHOLE BODY CLINICAL INFORMATION: Malignant neoplasm of prostate. COMPARISON: No existing relevant imaging study available. TECHNIQUE: Multiple gamma scintillation camera images of the whole body were performed 3 hours following the intravenous administration of 29 mCi Tc-99m MDP. The radiotracer was injected through a left hand superficial vein without complications. FINDINGS: In the head, no suspicious focal lesion. In the thoracic cage and upper extremities, symmetric increased tracer activity around both shoulder, consistent with nonspecific arthritic and/or posttraumatic changes. Similar-appearing mild increased tracer activity is also noted at the sternoclavicular joints. In the spine, focal increased tracer activity is noted at T10 vertebral body, of indeterminate etiology. Correlation with follow-up CT scan or MRI of the thoracic spine and/or PSMA PET/CT scan as appropriate is recommended for further clarification. In the pelvis, asymmetric subtle focal increased tracer activity is noted at the right posterior inferior part of the acetabulum, of indeterminate etiology. In the lower extremities, no significant focal increased tracer activity. No other definite bony abnormalities are noted. The urinary bladder and faint visualization of both kidneys are noted. NM/NM bone scan whole body IMPRESSION: 1. Nonspecific increased focal tracer activity at T10 vertebral body, of indeterminate etiology. 2. Subtle focal asymmetric increased tracer activity is also noted at right posterior inferior part of the acetabulum, of indeterminate etiology. 3. Follow-up PSMA PET/CT scan and/or CT or MRI of the spine and the pelvis as appropriate may be considered for further clarification. Electronically signed by: Harman Pizano MD 05/23/2024 04:13 PM [facility]
== END ==
LOC: HO.NUCMED 09:50
PROVIDERS: PCP Physician Assistant Medical; Visit Provider Urology
DX: C61 Malignant neoplasm of prostate (principal); C79.51 Secondary malignant neoplasm of bone; C77.2 Secondary and unspecified malignant neoplasm of intra-abdominal lymph nodes
CPT/HCPCS: 78306; A9503

== ENCOUNTER 2024-06-21 09:49 | Outpatient (REF) | payer BC, SELFPAY ==
--- OUTSIDE RECORDS SUMMARY | 2024-06-21 10:34 | XMS_ITS | Patient Health Record ---
[facility] Brannon Lund Address [address] [facility] [place] [address] Care Team Providers Care Dial Painter Name Role Phone Christopher Lares Primary Care Provider Unav Angelito Cook Unavailable [phone] Allergies Allergen (clinical drug ingredient) Drug/Non Drug Allergy documented on EMR Reaction Allergy Type Onset Date Status celecoxib Celebrex itchy Drug Allergy Active levothyroxine Levothyroxine sob/fainted Drug Allergy Active prednisone Prednisone trouble breathing Drug Allergy Active Reason For Referral No Information Medications Medication SIG (Take, Route, Frequency, Duration) Notes Start Date End Date Status Aspirin 81 MG 1 tablet Orally Once a day for 30 day(s) Active Bismuth 262 MG 2 tablets with meals and at bedtime Orally Four times a day for 30 day(s) Not-Ta abelino dilTIAZem HCl ER Beads 180 MG 1 capsule Orally Once a day for 30 day(s) Active Flunisolide 25 MCG/ACT (0.025%) 2 sprays in each nostril Nasally Twice a day for 30 day(s) Not-Taking Tadalafil 20 MG 1 tablet Orally for 30 day(s) Active Albuterol Not-Taking Latanoprost 0.005 % 1 drop into affected eye in the evening Ophthalmic Once a day Active Shingrix 50 MCG/0.5ML as directed Intramuscular Not-Taking Lisinopril 40 MG 1 tablet Orally Once a day for 30 day(s) Active dilTIAZem HCl 120 MG as directed Orally Active Fluticasone Furoate 50 MCG/ACT 2 puffs Inhalation Once a day Not-Taking Finasteride 5 MG 1 tablet Orally Once a day for 30 day(s) Active Ondansetron 4 MG 1 tablet on the tong ue and allow to dissolve Orally Once a day for 30 day(s) Not-Taking oxyBUTYnin Chloride 5 MG 1 tablet Orally Twice a day for 30 day(s) Active Tamsulosin HCl 0.4 MG 1 capsule Orally O nce a day for 30 day(s) Active Lovastatin 40 MG 1 tablet with the ev ening meal Orally Once a day for 30 day(s) Active Immunizations Vaccine Route Administration Date Status Comme nts COVID-19 Moderna Vaccine Unknown 09/10/2020 Administere d 1st 08/17/20 Social History Tobacco Use: Social History Observation Description Date Details (start date - stop date) Never Smoker NA - NA Tobacco Use/Smoking Question Answer Notes Are you a: nonsmoker Alcohol Screen Question Answer Notes Did you have a drink containing alcohol in the p ast year? Yes Points 0 Interpretation Negative Tobacco use other than smoking: Question Answer Notes Are you an other tobacco user? Yes Plan Of Treatment No Information Insurance Providers Payer Name Payer Address Payer Phone Subscriber Number Group Number Insured Name Patient Relationship to Insured Coverage Start Date Coverage End Date [facility] [address] [place] [address] [id number] Uzair Cook Self - patient is the insured Medical (General) History Medical History History ICD Code Lyme disease Dupytrens contracture Prostate cancer skin cancer Gastroesophageal reflux disease (GERD) Erectile dysfunction Hyperlipidemia ampuation Peripheral neuropathy Pyelonephritis Hypertension keloids Measles Mumps Chicken pox Surgical History Surgery Date(Month/Year) Hernia Repair 12/30/2019 Excision benign lesion left food 10/30/19 19 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
[2024-06-21 11:46] LABS: PSA,Total (Free>4and<10) 2.97 ng/mL (0.00-4.00)
[2024-06-25 16:09] LABS: Testosterone, Total 863 ng/dL (250-1100)
== END 2024-06-21 09:50 | disposition home or self-care (01) ==
LOC: HO.LAB 09:49
PROVIDERS: Visit Provider Urology
DX: C61 Malignant neoplasm of prostate (principal); C77.2 Secondary and unspecified malignant neoplasm of intra-abdominal lymph nodes; Z12.5 Encounter for screening for malignant neoplasm of prostate
CPT/HCPCS: 36415; 84153; 84403

== ENCOUNTER 2024-06-25 13:42 | Outpatient (AMB) | payer BC, SELFPAY ==
--- NOTE | 2024-06-25 13:44 | MHC.OFFVIS ---
Intake Visit Reasons: 3M PSA/Testo(set) Intake Note: Patient is present for 3M PSA/TESTO Urology Medication:OXYBUTYNIN,TAMSULOSIN,FINASTERIDE Antibiotic Allergy:NONE Blood Thinner:APIXABAN Conference Planner Required: No Allergies celecoxib [From CELEBREX] Allergy (Severe, Verified 06/25/24 13:47) HYPOTENSION HPI Comments Details: Uzair is a pleasant male. He is a patient of Dr. Reyes. He is seen for the following urologic conditions - prostate cancer - metastatic - oncology Dr Mook Everett Telemedicine Evaluation 15 min Consultation [email or web address] Video 07/10 PSA 3.0 Significant response Continue enzalutamide 4 month follow-up 05/09 PSA 38 Started enzalutamide a few weeks ago Tolerating much better than abiraterone 04/08 PSA 40 Discussed rising PSA PET-CT was denied that he had planned with Prescription for enzalutamide placed Bone Scan - Nonspecific increased focal tracer activity at T10 vertebral body, of indeterminate etiology.Follow-up PSMA PET/CT scan and/or CT or MRI of the spine and the pelvis as appropriate may be considered for further clarification 12/07 PSA 14 Has PET-CT scan in January with Dr Delvalle Did discuss potentially trialing Enzalutamide See in 3 months with lab work Has seen Dr. Delvalle in oncology [facility] Stopped abiraterone since has weakness and instability of gait Does not tolerate GnRH secondary to increased anxiety Working with oncology to find secondary options for chemotherapy 08/09 8.0 PSMA - similar activity pattern with persistent hilar nodule, persistent abdominal nodule both less than 1 cm. New activity within prostate. Rise in PSA likely due to stopping abiraterone 04/07 P2.4 T 633 DEXA - osteopenia 01/05 PSA 1.2 T 630 11/05 - PSMA Scan - persistent hilar nodule activity less than previously Continues with bicalutamide and cycling abiraterone - PSA 0.5 Continue current therapy Prostate cancer metastatic 03/07 abiraterone reduced to 3 tabs daily - admitted to [facility] with DVT PSA 12/05 2.3, 01/04 4 - doubling time less than 6 months, 03/07 0.8 T 23, 07/08 2.9, 10/06 0.5 Imaging - 12/05 PSMA scan [facility] hilar node positive - 02/04 CT chest no change in apoorva status Did not tolerate prior GnRH injection - had anxiety with gynecomastia Therapeutic plan -01/04 initiate abiraterone for metastatic disease and assessment for targeted radiotherapy 09/01 PSA 1.1, 11/01 PSA 1.3, 04/03 0.9, 08/05 0.3, 12/03 0.3, 04/04 0.2, 12/04 0.1, 06/05 0.3, 12/05 2.3, 01/04 4, 07/08 2.9 T 386, Prostate cancer: Intermediate risk Lorie 3 + 4 external beam radiation short-term hormones 01/31 Prostate cancer was diagnosed 08/31 Dr Marvin. Diagnosis was reached by 08/31 , needle biopsy, PSA at diagnosis 8.3. The Lorie grade is Lorie Unkown - , 3+4 = 7. TNM Classification of Malignant Tumours (TNM) T1c. The D'Laila (NCCN) risk category is Intermediate Risk (PSA 10-20, Gl 7, T2), Group 2. Initial therapy included Primary treatment , External beam radiation with short term hormonal ablation - [facility] 01/31 completed. 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 Prostate cancer Surgical History History of surgery Review of Systems Const Denies chills and Denies fever(s) Card Reports no additional complaints and Denies syncope Resp Denies cough GI Denies abdominal pain and Denies heartburn Reports as per HPI and Denies change in libido Neuro Denies syncope Psych Denies change in libido Endo Denies change in libido Physical Exam Const General: cooperative, healthy appearing, comfortable and no acute distress Orientation/consciousness: patient oriented x3 HEENT Face and sinus: Yes normal facial exam Mouth: moist mucous membranes Neck Neck: Yes normal visual inspection, Yes full ROM and Yes trachea midline Chest Chest palpation & inspection: normal inspection of the chest Resp Effort & Inspection: normal respiratory effort, able to speak in complete sentences and no respiratory distress GI Inspection: Yes normal to inspection Back/Spine/Pelvis Cervical Spine: normal cervical lordosis Thoracic/Lumbar Spine: thoracic and lumbar spine normal to inspection Skin General skin exam: no rashes or lesions noted Neuro General: patient oriented x3, gait normal, tone normal and moves all extremities Extrem General: Yes normal to inspection and Yes capillary refill normal Results AMB Urinalysis, Automated UA Leukoctes 0 Mireya/uL Last Edit by NOLBERTO Dai on 06/25/24 13:56 UA Nitrite Negative Last Edit by Ximena Murillo [facility] on 06/25/24 13:56 UA Urobilinogen 0.2 mg/dL Last Edit by Ximena Murillo [facility] on 06/25/24 13:56 UA Protein 15 mg/dL Last Edit by Ximena Murillo [facility] on 06/25/24 13:56 UA pH 6.0 Last Edit by Ximena Murillo [facility] on 06/25/24 13:56 UA Blood 0 Jamarcus/uL Last Edit by Ximena Murillo [facility] on 06/25/24 13:56 UA Specific Gravette 1.020 Last Edit by Ximena Murillo [facility] on 06/25/24 13:56 UA Ketone Negative Last Edit by Ximena Murillo [facility] on 06/25/24 13:56 UA Bilirubin 0 mg/dL Last Edit by Ximena Murillo [facility] on 06/25/24 13:56 UA Glucose 0 mg/dL Last Edit by Ximena Murillo [facility] on 06/25/24 13:56 Results Reviewed Results Reviewed: Laboratory Last Values Urine pH (Auto) 6.0 06/25/24 13:56 Specific Gravette (Auto) 1.020 06/25/24 13:56 Urine Protein (Auto) 15 mg/dL 06/25/24 13:56 Glucose (UA)(Auto) 0 mg/dL 06/25/24 13:56 Urine Ketones (Auto) Negative 06/25/24 13:56 Urine Blood (Auto) 0 Jamarcus/uL 06/25/24 13:56 Urine Nitrite (Auto) Negative 06/25/24 13:56 Urine Bilirubin (Auto) 0 mg/dL 06/25/24 13:56 Urine Urobilinogen (Auto) 0.2 mg/dL 06/25/24 13:56 Leukocyte Esterase (Auto) 0 Mireya/uL 06/25/24 13:56 Assessment & Plan Assessment & Plan (1) Prostate cancer: Comment: Gl 3+4 with XRT Code(s): C61 - Malignant neoplasm of prostate Category: Medical (2) Erectile dysfunction following radiation therapy: Code(s): N52.35 - Erectile dysfunction following radiation therapy Category: Medical Plan 4 month follow-up lab work G Code G2211 Has been applied in accordance with CMS guidelines ( Medicare and Medicaid programs; [place] 2023 Payment Policies ) to convey the inherent complexity in ongoing patient care within the urology clinic. This deliberate utilization aligns with the visits complexity associated with medical care services serving as a focal point for necessary healthcare, addressing the patient's singular serious or complex condition. This judicious use ensure was appropriate reimbursement, especially in the context of managing such conditions within our specialized, longitudinal urologic practice. This patient has a complex and chronic urologic condition that requires longitudinal follow-up. [facility], Medicare and Medicaid programs; [place] 2023 Payment Policies Fed. Reg 88 (48): 41098-[address] (Jan.202022) Orders: Orders AMB Urinalysis Automated Today Z13.9 - Encounter for screening, unspecified Prostate Specific Antigen 4 Months C61 - Malignant neoplasm of prostate, C77.2 - Secondary and unspecified malignant neoplasm of intra-abdominal lymph nodes Testosterone, Total 4 Months C61 - Malignant neoplasm of prostate, C77.2 - Secondary and unspecified malignant neoplasm of intra-abdominal lymph nodes Medications: Discontinued tamsulosin Discontinued Reason: Patient Completed Course 0.4 mg PO BEDTIME 30 caps 0RF C61 - Malignant neoplasm of prostate, N40.1 - Benign prostatic hyperplasia with lower urinary tract symptoms, R35.1 - Nocturia prednisone Discontinued Reason: Doctor's Order 5 mg PO BID 30 days 60 tabs 5RF C61 - Malignant neoplasm of prostate, C77.2 - Secondary and unspecified malignant neoplasm of intra-abdominal lymph nodes bicalutamide Discontinued Reason: Doctor's Order 50 mg PO DAILY 90 days 90 tabs 1RF C61 - Malignant neoplasm of prostate, C77.2 - Secondary and unspecified malignant neoplasm of intra-abdominal lymph nodes Patient Instructions: Imaging studies, laboratory and physical exam results were discussed and reviewed in detail. No major barriers to patient understanding were identified. An opportunity to ask questions regarding the treatment plan was provided. All questions were answered. The patient expressed understanding and agreement with the above treatment plan. The patient is aware they should contact our office by phone for worsening of their current condition or the appearance of new urologic symptoms. Compliance is encouraged with any medications and followup testing that is ordered. It is a privilege to participate in the urologic care of your patient. If you have any questions or concerns regarding treatment for the above conditions, or other urologic issues, please do not hesitate to contact me. The office telephone contact is [phone]. This note is constructed using voice recognition software. While every effort has been made to ensure accuracy telecommunications analyst errors may have been included. Yours sincerely, Dr Daniel Duenas MD, ALEJANDR[facility] - Urology Providers of Expert, Compassionate Care for the Genitourinary System Coding Level of Care Code Est Pt Level 3 (20404) Diagnoses Prostate cancer C61 Erectile dysfunction following radiation therapy N52.35
--- OUTSIDE RECORDS SUMMARY | 2024-06-25 13:45 | XMS_ITS | Patient Health Record ---
[facility] Address [address] [facility] [place] [address] Care Team Providers Care Director Digital Marketing Name Role Phone Christopher Lares Primary Care Provider Unav Angelito Cook Unavailable [phone] Allergies Allergen (clinical drug ingredient) Drug/Non Drug [...] Insured Coverage Start Date Coverage End Date [facility] [address] [place] [address] [id number] Uzair Cook Self - patient is [...]
== END 2024-06-25 14:20 | disposition home or self-care (01) ==
PROVIDERS: PCP Physician Assistant Medical; Visit Provider Urology
DX: C61 Malignant neoplasm of prostate (principal); N52.35 Erectile dysfunction following radiation therapy; Z13.9 Encounter for screening, unspecified
CPT/HCPCS: 99213

== ENCOUNTER → 2024-06-25 13:42 | Outpatient (BNVA) | payer BC, SELFPAY | PROVIDERS: PCP Physician Assistant Medical; Visit Provider Urology | DX: C61 Malignant neoplasm of prostate (principal); C77.2 Secondary and unspecified malignant neoplasm of intra-abdominal lymph nodes; N52.35 Erectile dysfunction following radiation therapy | CPT/HCPCS: 81003 ==

== ENCOUNTER 2024-10-14 11:30 | Outpatient (REF) | payer BC, SELFPAY ==
--- OUTSIDE RECORDS SUMMARY | 2024-10-14 13:35 | XMS_ITS | Encounter Summary ---
Author Organization [facility] Address [address] [place] [address] Phone Care Team Providers Care Tractor Drill Operator Name Role Phone Christopher Reyes PA-C Primary Care Provider Encounter Details Date Type Department Care Team (Late st Contact Info) Description 05/20/2022 Documentation Only [facility] [address] [place] [phone] Rika Hahn PA Social History Tobacco Use Types Packs/Day Years Used Date Smoking Tobacco: Never Sex and Gender Information Value Date Recorded Sex Assigned at Not on file Legal Sex Male 12:02 PM EDT Gender Identity Not on file Sexual Orientation Not on file documented as of this encounter Plan of Treatment Upcoming Encounters Date Type Department Care Team (Late st Contact Info) Description 01/25/2025 1:30 PM EDT Office Visit [facility] [address] [place] [phone] Raoul Juan MD [address] [place] [phone] documented as of this encounter Visit Diagnoses Not on filedocumented in this encounter Care Teams Tractor Drill Operator Relationship Specialty Start Date End Date Christopher Reyes PA-C [address] [place] [id number] PCP - General Physician Thermo Processor 09/28/24 documented as of this encounter
--- OUTSIDE RECORDS SUMMARY | 2024-10-14 13:35 | XMS_ITS | Encounter Summary ---
Author Organization [facility] Address [address] [place] [address] Phone Care Team Providers Care Brazer Furnace Name Role Phone Christopher Reyes PA-C Primary Care Provider Encounter Details Date Type Department Care Team (Late st Contact Info) Description 02/09/2024 Documentation Only [facility] [address] [place] [phone] Griselda Heck [address] [place] [phone] Social History Tobacco Use Types Packs/Day Years [...] Visit [facility] [address] [place] [phone] Raoul Juan MD [address] [place] [phone] documented as of this encounter Visit Diagnoses Not on filedocumented in this encounter Care Teams Brazer Furnace Relationship Specialty Start Date End Date Christopher Reyes PA-C [address] [place] [id number] PCP - General Physician Custom Van Converter 09/28/24 documented as of this encounter
--- OUTSIDE RECORDS SUMMARY | 2024-10-14 13:37 | XMS_ITS ---
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 Past Plans ONCOLOGY INFUSION THERAPY Plan Name Start Date Discontinue Date Treatment Medications Discontinue Reason Plan Provider [facility] LEUPROLIDE 22.5MG (ELIGARD) EVERY 3 MONTHS 03/25/2022 07/24/2023 leuprolide (ELIGARD) Therapy Complete Darleen Lanza MD Radiation Treatments * No radiation treatments are documented for this patient in [facility]. Treatments may have been administered in another system.
--- OUTSIDE RECORDS SUMMARY | 2024-10-14 13:37 | XMS_ITS | Clinical Summary ---
Author Organization [facility] Address [address] [place] [address] Care Team Providers Care Environmental Engineering Assistant Name Role Phone Mike Brooks MD Primary Care Provider [phone] Allergies Active Allergy Reactions Criticality Noted Date Comments Celecoxib 01/15/2018 Prednisone 01/15/2018 Medications Medication Sig Dispensed Refills Start Date End Date Status tadalafil (CIALIS) 20 MG tablet Take 1 tablet (20 mg total) by mouth daily as needed for erectile dysfunction. 0 Active tamsulosin (FLOMAX) 0.4 MG CAPS Take 1 capsule (0.4 mg total) by mouth daily. 0 Active lisinopril (PRINIVIL,ZESTRIL) tablet 20 mg Take 1 tablet (20 mg total) by mouth daily. 0 Active omeprazole (PRILOSEC) 20 MG capsule Take 1 capsule (20 mg total) by mouth daily. 0 Active dilTIAZem (CARDIZEM CD) 120 MG 24 hr capsule Take 1 capsule (120 mg total) by mouth daily. 0 Active apixaban (ELIQUIS) 5 MG TABS tablet Take by mouth every 12 (twelve) hours. 0 Active rosuvastatin (CRESTOR) tablet 20 mg Take 1 tablet (20 mg total) by mouth daily. 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 Pulmonary embolism 03/20/2022 Deep vein thrombosis (DVT) 03/20/2022 Hilar lymphadenopathy 03/20/2022 Anxiety 03/20/2022 Elevated PSA 03/20/2022 Prostate cancer 01/14/2019 Essential hypertension 01/14/2019 Mixed hyperlipidemia 01/14/2019 Gastroesophageal reflux disease 01/14/2019 Weight loss 01/14/2019 Family History Medical History Relation Name Comments Cancer Brother Cancer Father Relation Name Status Comments Brother Father Social History Tobacco Use Types Packs/Day Years Used Date Smoking Tobacco: Never Smokeless Tobacco: Never Alcohol Use Standard Drinks/Week Comments Yes 8 (1 standard drink = 0.6 oz pur e alcohol) Sex and Gender Information Value Date Recorded Sex Assigned at Not on file Gender Identity Not on file Sexual Orientation Not on file Job Start Date Occupation Industry Not on file Not on file Not on file Last Filed Vital Signs Vital Sign Reading Time Taken Comments Blood Pressure 151/73 08/20/2023 1:13 PM EST Pulse 57 08/20/2023 1:13 PM EST Temperature 36.2 ??C (97.1 ??F) 08/20/2023 1:13 PM ES T Respiratory Rate - - Oxygen Saturation 99% 08/20/2023 1:13 PM EST Inhaled Oxygen Concentration - - Weight 87.8 kg (193 lb 9.6 oz) 08/20/2023 1:13 P M EST Height 180.3 cm (5' 11 ) 08/20/2023 1:13 PM EST Body Mass Index 27 08/20/2023 1:13 PM EST Plan of Treatment Health Maintenance Due Date Last Done Comments Hepatitis C Screening 1945 Depression Screening 1958 Preventative Health Evaluation 1964 Fall Risk Assessment 09/29/2011 RSV Adult > 60+ Yrs or (1 - 1-dose 75+ series) 2021 DTap / Tdap / Td (2 - Td or Tdap) 10/20/2022 10/20/2012, 11/15/2003 COVID-19 Vaccine ( season) 2024 10/19/2021, 03/13/2021, 08/18/2020, Additional history exists Influenza Vaccine (#1) 2024 3, 03/05/2022, 03/22/2021, Additional history exists Pneumococcal Vaccine Completed 04/18/2015, 12/27/19 12 Shingrix-Zoster Vaccine Completed 07/05/2020, 04/21 Hepatitis B Vaccines Aged Out No long er eligible based on patient's age to complete this topic RSV Ped < 20 months Aged Out No longe r eligible based on patient's age to complete this topic Care Teams Environmental Engineering Assistant Relationship Specialty Start Date End Date Mike Brooks MD PCP - General Accounting Practice Manager 10/09/17
--- OUTSIDE RECORDS SUMMARY | 2024-10-14 13:37 | XMS_ITS | Encounter Summary ---
Author Organization [facility] Address [address] [place] [address] Phone Care Team Providers Care Plant Guard Name Role Phone Christopher Reyes PA-C Primary Care Provider Encounter Details Date Type Department Care Team (Late st Contact Info) Description 06/13/2022 Documentation Only [facility] [address] [place] [phone] Rika Hahn PA Social History Tobacco Use [...] Visit [facility] [address] [place] [phone] Raoul Juan MD [address] [place] [phone] documented as of this encounter Visit Diagnoses Not on filedocumented in this encounter Care Teams Plant Guard Relationship Specialty Start Date End Date Christopher Reyes PA-C [address] [place] [id number] PCP - General Physician Grocery Caddy 09/28/24 documented as of this encounter
--- OUTSIDE RECORDS SUMMARY | 2024-10-14 13:39 | XMS_ITS | Encounter Summary ---
Author Organization [facility] Address [address] [place] [address] Phone Care Team Providers Care Systems Protection Technician Name Role Phone Christopher Reyes PA-C Primary Care Provider Encounter Details Date Type Department Care Team (Late Contact Info) Description 11/19/2021 Documentation Only [facility] [address] [place] [phone] [facility] [place], [place] [address] [place] [address] Social History Tobacco Use Types Packs/Day Years Used Date Smoking Tobacco: Never Assessed Sex and Gender Information Value Date Recorded Sex Assigned at Not on file Legal Sex Male 12:02 PM EDT Gender Identity Not on file Sexual Orientation Not on file documented as of this encounter Plan of Treatment Upcoming Encounters Date Type Department Care Team (Late Contact Info) Description 01/25/2025 1:30 PM EDT Office Visit [facility] [address] [place] [phone] Raoul Juan MD [address] [place] [phone] documented as of this encounter Visit Diagnoses Not on filedocumented in this encounter Care Teams Systems Protection Technician Relationship Specialty Start Date End Date Christopher Reyes PA-C [address] [place] [address] PCP - General Physician Miller Helper 09/28/24 documented as of this encounter
[2024-10-14 13:46] LABS: Prostate Specific Antigen 1.76 ng/mL (<0.05-4.0)
[2024-10-18 00:33] LABS: Testosterone, Total 772 ng/dL (250-1100)
== END 2024-10-14 11:31 | disposition home or self-care (01) ==
LOC: HO.HMGCLDS 11:30
PROVIDERS: PCP Physician Assistant Medical; Visit Provider Urology
DX: C61 Malignant neoplasm of prostate (principal); C77.2 Secondary and unspecified malignant neoplasm of intra-abdominal lymph nodes; Z12.5 Encounter for screening for malignant neoplasm of prostate
CPT/HCPCS: 36415; 84153; 84403

== ENCOUNTER 2024-10-26 10:08 | Outpatient (AMB) | payer BC, SELFPAY ==
--- NOTE | 2024-10-26 10:19 | MHC.OFFVIS ---
Intake Visit Reasons: 4m/labs Intake Note: pt here today for: 4M/Labs blood thinner: Eliquis Inpatient Services Director Required: No Allergies celecoxib [From CELEBREX] Allergy (Severe, Verified 10/26/24 10:26) HYPOTENSION HPI Comments Details: Uzair is a pleasant male. He is a patient of Dr. Reyes. He is seen for the following urologic conditions - prostate cancer - metastatic - oncology Dr Mook Everett Minimal symptoms Adequate energy Continue interval surveillance 11/07 PSA 1.7 T 772 - single agent antiandrogen 07/10 PSA 3.0 Significant response Continue enzalutamide 4 month follow-up 05/09 PSA 38 Started enzalutamide a few weeks ago Tolerating much better than abiraterone 04/08 PSA 40 Discussed rising PSA Prescription for enzalutamide placed Bone Scan - Nonspecific increased focal tracer activity at T10 vertebral body, of indeterminate etiology. Follow-up PSMA PET/CT scan and/or CT or MRI of the spine and the pelvis as appropriate may be considered for further clarification 12/07 PSA 14 Has PET-CT scan in January with Dr Delvalle Did discuss potentially trialing Enzalutamide See in 3 months with lab work Has seen Dr. Delvalle in oncology [facility] Stopped abiraterone since has weakness and instability of gait Does not tolerate GnRH secondary to increased anxiety Working with oncology to find secondary options for chemotherapy 08/09 8.0 PSMA - similar activity pattern with persistent hilar nodule, persistent abdominal nodule both less than 1 cm. New activity within prostate. Rise in PSA likely due to stopping abiraterone 04/07 P2.4 T 633 DEXA - osteopenia 01/05 PSA 1.2 T 630 11/05 - PSMA Scan - persistent hilar nodule activity less than previously Continues with bicalutamide and cycling abiraterone - PSA 0.5 Continue current therapy Prostate cancer metastatic 03/07 abiraterone reduced to 3 tabs daily - admitted to [facility] with DVT PSA 12/05 2.3, 01/04 4 - doubling time less than 6 months, 03/07 0.8 T 23, 07/08 2.9, 10/06 0.5 Imaging - 12/05 PSMA scan [facility] hilar node positive - 02/04 CT chest no change in apoorva status Did not tolerate prior GnRH injection - had anxiety with gynecomastia Therapeutic plan -01/04 initiate abiraterone for metastatic disease and assessment for targeted radiotherapy 09/01 PSA 1.1, 11/01 PSA 1.3, 04/03 0.9, 08/05 0.3, 12/03 0.3, 04/04 0.2, 12/04 0.1, 06/05 0.3, 12/05 2.3, 01/04 4, 07/08 2.9 T 386, Prostate cancer: Intermediate risk Patterson 3 + 4 external beam radiation short-term hormones 01/31 Prostate cancer was diagnosed 08/31 Dr Marvin. Diagnosis was reached by 08/31 , needle biopsy, PSA at diagnosis 8.3. The Patterson grade is Lorie Unkown - , 3+4 = 7. TNM Classification of Malignant Tumours (TNM) T1c. The D'Laila (NCCN) risk category is Intermediate Risk (PSA 10-20, Gl 7, T2), Group 2. Initial therapy included Primary treatment , External beam radiation with short term hormonal ablation - [facility] 01/31 completed. 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 Prostate cancer Surgical History History of surgery Review of Systems Const Denies chills and Denies fever(s) Card Reports no additional complaints and Denies syncope Resp Denies cough GI Denies abdominal pain and Denies heartburn Reports as per HPI and Denies change in libido Neuro Denies syncope Psych Denies change in libido Endo Denies change in libido Physical Exam Const General: cooperative, healthy appearing, comfortable and no acute distress Orientation/consciousness: patient oriented x3 HEENT Face and sinus: Yes normal facial exam Mouth: moist mucous membranes Neck Neck: Yes normal visual inspection, Yes full ROM and Yes trachea midline Chest Chest palpation & inspection: normal inspection of the chest Resp Effort & Inspection: normal respiratory effort, able to speak in complete sentences and no respiratory distress GI Inspection: Yes normal to inspection Back/Spine/Pelvis Cervical Spine: normal cervical lordosis Thoracic/Lumbar Spine: thoracic and lumbar spine normal to inspection Skin General skin exam: no rashes or lesions noted Neuro General: patient oriented x3, gait normal, tone normal and moves all extremities Extrem General: Yes normal to inspection and Yes capillary refill normal Assessment & Plan Assessment & Plan (1) Prostate cancer metastatic to intraabdominal lymph node: Code(s): C61 - Malignant neoplasm of prostate; C77.2 - Secondary and unspecified malignant neoplasm of intra-abdominal lymph nodes Category: Medical Plan Six-month follow-up lab work Orders: Orders Prostate Specific Antigen 6 Months C61 - Malignant neoplasm of prostate, C77.2 - Secondary and unspecified malignant neoplasm of intra-abdominal lymph nodes Testosterone, Total 6 Months C61 - Malignant neoplasm of prostate, C77.2 - Secondary and unspecified malignant neoplasm of intra-abdominal lymph nodes Patient Instructions: This note is constructed using voice recognition software. While every effort has been made to ensure accuracy quality nurse errors may have been included. Imaging studies, laboratory and physical exam results were discussed and reviewed in detail. No major barriers to patient understanding were identified. An opportunity to ask questions regarding the treatment plan was provided. All questions were answered. The patient expressed understanding and agreement with the above treatment plan. The patient is aware they should contact our office by phone for worsening of their current condition or the appearance of new urologic symptoms. Compliance is encouraged with any medications and followup testing that is ordered. It is a privilege to participate in the urologic care of your patient. If you have any questions or concerns regarding treatment for the above conditions, or other urologic issues, please do not hesitate to contact me. The office telephone contact is [phone]. Sincerely, Dr Daniel Duenas MD, [facility] - Urology Compassionate Specialist Care for the Genitourinary System Coding Level of Care Code Est Pt Level 3 (36340) Complex EM visit Add On G2211 Diagnoses Prostate cancer metastatic to intraabdominal lymph node C61; C77.2
--- OUTSIDE RECORDS SUMMARY | 2024-10-26 11:09 | XMS_ITS | Encounter Summary ---
Author Organization [facility] Address [address] [place] [address] Phone Care Team Providers Care Mounter Hand Name Role Phone Christopher Reyes PA-C Primary Care Provider Encounter Details Date Type Department Care Team (Late st Contact Info) Description 03/21/2022 Documentation Only [facility] [address] [place] [phone] Rika Hahn PA Social History Tobacco Use [...] Visit [facility] [address] [place] [phone] Raoul Juan MD [address] [place] [phone] documented as of this encounter Visit Diagnoses Not on filedocumented in this encounter Care Teams Mounter Hand Relationship Specialty Start Date End Date Christopher Reyes PA-C [address] [place] [phone] PCP - General Physician Feed Mill Manager 09/28/24 documented as of this encounter
--- OUTSIDE RECORDS SUMMARY | 2024-10-26 11:09 | XMS_ITS | Encounter Summary ---
Author Organization [facility] Address [address] [place] [address] Phone Care Team Providers Care Department Helper Name Role Phone Christopher Reyes PA-C Primary Care Provider Encounter Details Date Type Department Care Team (Late st Contact Info) Description 05/20/2022 Documentation Only [facility] [address] [place] [phone] Rika Hahn PA Social History Tobacco Use [...] Visit [facility] [address] [place] [phone] Raoul Juan MD [address] [facility] [place] [phone] documented as of this encounter Visit Diagnoses Not on filedocumented in this encounter Care Teams Department Helper Relationship Specialty Start Date End Date Christopher Reyes PA-C [address] [place] [phone] PCP - General Physician Smoked Meat Preparer 09/28/24 documented as of this encounter
--- OUTSIDE RECORDS SUMMARY | 2024-10-26 11:09 | XMS_ITS | Clinical Summary ---
Author Organization [facility], Address [address] [place] [address] [place] [address] Phone Care Team Providers Care Bridge Saw Operator Name Role Phone Christopher Reyes PA-C Primary Care Provider Allergies Active Allergy Reactions Criticality Noted Date Comments Celecoxib 04/19/2022 Levofloxacin 04/19/2022 Prednisone 04/19/2022 Medications lovastatin (MEVACOR) 20 MG tablet Take 20 mg by mouth every night Active dilTIAZem (TIAZAC) 120 MG 24 hr capsule Take 120 mg by mouth 1 (one) time each day Active lisinopril 20 MG tablet Take 20 mg by mouth 1 (one) time each day Active tamsulosin (FLOMAX) 0.4 MG 24 hr capsule Take 0.4 mg by mouth 1 (one) time each day Active oxybutynin XL (DITROPAN-XL) 5 MG 24 hr tablet Take 5 mg by mouth 1 (one) time each day Do not crush, chew, or split. Active Abiraterone Acetate 125 MG tablet Take by mouth Active apixaban (ELIQUIS) 5 MG tablet Take 5 mg by mouth in the morning and 5 mg in the evening. Active omeprazole (PriLOSEC) [address] capsule Take 20 mg by mouth 1 (one) time each day Do not crush or chew. Active tadalafil (CIALIS) 20 MG tablet Take 20 mg by mouth 1 (one) time each day if needed for erectile dysfunction Active predniSONE 5 MG tablet Take 5 mg by mouth in the morning and 5 mg in the evening. Active Xtandi 80 MG tablet Take 160 mg by mouth in the morning. Active Active Problems Problem Noted Date Diagnosed Date Unspecified hereditary and idiopathic peripheral neuropathy 02/12/2022 Hyponatremia 02/12/2022 Hypertension 02/12/2022 Mixed hyperlipidemia 02/12/2022 Carcinoma of prostate 02/12/2022 Resolved Problems Problem Noted Date Diagnosed Date Resolved Date Lyme disease 02/12/2022 06/18/2022 Encounters Date Type Department Care Team Description 2024 2:30 PM EDT Office Visit [facility] [place], [address] [place] [phone] Raoul Juan MD Hyponatremia (Primary Dx); Carcinoma of prostate (HCC) from Last 3 Months Family History Medical History Relation Comments Stroke Brother Other Father brain tumor Relation Status Comments Brother Father Mother Sister Alive Social History Tobacco Use Types Packs/Day Years Used Date Smoking Tobacco: Never Sex and Gender Information Value Date Recorded Sex Assigned at Not on file Legal Sex Male 12:02 PM EDT Gender Identity Not on file Sexual Orientation Not on file Last Filed Vital Signs Vital Sign Reading Time Taken Comments Blood Pressure 132/78 05/21/2023 9:34 AM EST Pulse 72 06/20/2022 3:19 PM EST Temperature - - Respiratory Rate - - Oxygen Saturation - - Inhaled Oxygen Concentration - - Weight 93.4 kg (206 lb) 04/19/2022 1:36 PM EDT Height 182.9 cm (6') 04/19/2022 1:36 PM EDT Body Mass Index 27.94 04/19/2022 1:36 PM EDT Plan of Treatment Upcoming Encounters Date Type Department Care Team (Late st Contact Info) Description 01/25/2025 1:30 PM EDT Office Visit [facility] [place], [address] [place] [phone] Raoul Juan MD [address] [place] [address] [place] [phone] Health Maintenance Due Date Last Done Comments Pneumococcal Vaccine: 50+ Years Completed 04/18/2015, 12/27/2011 Influenza Vaccine Completed 04/08/2024, , 03/05/2022, Additional history exists Hepatitis B Vaccine Aged Out No longe r eligible based on patient's age to complete this topic Insurance [facility] Care Teams Bridge Saw Operator Relationship Specialty Start Date End Date Christopher Reyes, ROHANC [address] [place] [phone] PCP - General Physician Skirt Trimmer 09/28/24
--- OUTSIDE RECORDS SUMMARY | 2024-10-26 11:09 | XMS_ITS | Clinical Summary ---
Author Organization [facility] Address [address] [place] [address] Care Team Providers Care Charge Entry Specialist Name Role Phone Mike Brooks MD Primary Care Provider [phone] Allergies Active Allergy Reactions Criticality Noted Date [...] age to complete this topic Care Teams Charge Entry Specialist Relationship Specialty Start Date End Date Mike Brooks MD PCP - General Saddle Stitching Machine Operator 10/09/17
--- OUTSIDE RECORDS SUMMARY | 2024-10-26 11:09 | XMS_ITS | Encounter Summary ---
Author Organization [facility] Address [address] [place] [address] Phone Care Team Providers Care Assistant Front Office Manager Name Role Phone Christopher Reyes PA-C Primary Care Provider Encounter Details Date Type Department Care Team (Late st Contact Info) Description 02/09/2024 Documentation Only [facility] [address] [place] [phone] Griselda Heck [address] [place] [phone] Social History Tobacco Use Types Packs/Day Years [...] Visit [facility] [address] [place] [phone] Raoul Juan MD [address] [place] [phone] documented as of this encounter Visit Diagnoses Not on filedocumented in this encounter Care Teams Assistant Front Office Manager Relationship Specialty Start Date End Date Christopher Reyes PA-C [address] [place] [phone] PCP - General Physician Seasonal Recruiter 09/28/24 documented as of this encounter
--- OUTSIDE RECORDS SUMMARY | 2024-10-26 11:09 | XMS_ITS | Clinical Summary ---
Author Organization [facility] Address [address] [place] [address] Phone Care Team Providers Care Human Resources Partner Name Role Phone Christopher Reyes Primary Care Provider [phone] Allergies Active Allergy Reactions Criticality Noted Date Comments Celecoxib Swelling,Itching Medium 06/01/2012 Levofloxacin Other,Seizures High 02/15/2021 Prednisone Flushing Low 06/17/2012 Face turned red - no trouble breathing or lip swelling. Medications omeprazole (PriLOSEC) [address] capsule Take 1 capsule (20 mg total) by mouth daily. Active tadalafiL (CIALIS) 20 mg tablet Take 1 tablet (20 mg total) by mouth daily as needed for erectile dysfunction. 1 Active tamsulosin (FLOMAX) 0.4 mg 24 hr capsule Take 1 capsule (0.4 mg total) by mouth daily. Active finasteride (PROSCAR) 5 mg tablet Every Evening Active sodium chloride 1 gram tablet Take 1 tablet (1 g total) by mouth 1 (one) time each day. 4 Active oxyBUTYnin XL (DITROPAN-XL) 5 mg 24 hr tablet Take 5 mg by mouth daily. Active calcium phosphate/vitam in D2 (CALCIUM-VITAMI N D2 ORAL) Calcium Carb-Cholecal ciferol 1000-20 MG-MCG Active Xtandi 80 mg tablet Take 2 tablets (160 mg total) by mouth 1 (one) time each day. 4 Active rosuvastatin (CRESTOR) 10 mg tablet TAKE 1 TABLET BY MOUTH EVERY DAY 90 tablet 1 5 Active amLODIPine (NORVASC) 5 mg tablet Take 1 tablet (5 mg total) by mouth 1 (one) time each day. 90 each 1 5 02/22/20 25 Active carvediloL (Coreg) 25 mg tablet Take 1 tablet (25 mg total) by mouth 2 (two) times a day with meals. 180 each 5 Active Eliquis 2.5 mg tablet Take 1 tablet (2.5 mg total) by mouth 2 (two) times a day. 180 tablet 5 Active lisinopril (PRINIVIL,ZESTR IL) 40 mg tablet Take 1 tablet (40 mg total) by mouth 1 (one) time each day. 90 tablet 5 Active lisinopril (PRINIVIL,ZESTR IL) 40 mg tablet Take 1 tablet (40 mg total) by mouth 1 (one) time each day. 09/29/19 25 Discontinu ed(Reorder ) Eliquis 2.5 mg tablet Take 1 tablet (2.5 mg total) by mouth 2 (two) times a day. 09/29/19 25 Discontinu ed(Reorder ) Active Problems Problem Noted Date Diagnosed Date Gait instability 09/21/2024 Hypertension 03/24/2024 Coronary artery calcification 10/20/2023 Overview (03/24/2024): - Noted to have advanced calcifications of the coronary arteries on recent CT scan from 06/18/2023 performed for other reasons -Had an echocardiogram during his hospitalization for pulmonary embolism on 02/13/2022-his ejection fraction was 60 to 65% with normal regional wall motion and systolic function, mild, concentric left ventricular hypertrophy, normal LV cavity size, at that time he had a Arana sign suggestive of PE which was known, no hemodynamically significant valve disease - No real anginal symptoms Last Assessment & Plan: Given lack of anginal symptoms and euvolemia on exam, would focus on medical management-consider increasing rosuvastatin to 20 mg and ultimately 40 mg as tolerated for maximal risk reduction, would probably hold off on baby aspirin given that he is on Eliquis because of his unprovoked PE, echocardiogram in 2021 showed normal ejection fraction and normal regional wall motion Murmur, cardiac 10/20/2023 Overview (03/24/2024): Last Assessment & Plan: Sounds like an aortic sclerosis murmur. Echocardiogram in 2021 did not indicate any hemodynamically significant valve disease. Would only repeat echo for change in murmur or symptoms or exam. Ascending aorta dilatation (CMS/HCC V24) 023 Overview (03/24/2024): - Most recent CT scan of the chest performed for evaluation of pulmonary nodules in June 2023 commented that his ascending aorta dimension was 4.6 cm but on remeasurement by Dr. Butler of cardiology, it is closer to 4.4 x 4.4 cm as measured in coronal and sagittal reconstructions-largely unchanged from at least 2022 and probably 2021 -See Dr. Butler's note from 10/20/2023 for a full description Last Assessment & Plan: Very slow-growing. At this point, he is getting CT scans multiple times a year but at least yearly for other reasons. This should serve to survey his ascending aorta. He has no features of congenital aortopathy and frankly is being diagnosed very late in life. I suspect this is related to secondhand smoke exposure and hypertension. Reviewed indications for surgical repair at this point-absolute dimension greater than 5.5 cm or rapid growth of more than 5 mm in a year. He does not meet either of these criteria. At this point, would just advise him not to do strenuous lifting repeatedly or participate in very strenuous exercise-he does not do either of these things. Reviewed symptoms of rapid growth/dissection/rupture. I suspect this will not be an issue in his lifetime but we will continue surveillance imaging. If there are no plans for yearly CTs for other reasons, can probably do repeat imaging with CT of the chest every 3 years for this purpose alone. Interestingly, we were unable to see the maximal dimension on echocardiogram in 2021. Therefore, would stick with CT scan for surveillance. No contrast is necessary. 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 He also underwent a on endobronchial ultrasound guided biopsy on 08/29/2023 with pathology from left lymph node biopsies with good sampling from right paratracheal, left paratracheal and left level 10 lymph nodes with no malignancy identified. His most recent chest CT scan was performed at [facility] on December 05, 2023 for which images I personally reviewed and agree with radiologist findings which does show a 13 mm AP window lymph node which has enlarged since previous study where it measured 8 mm. Previous enlarged lymph nodes are no longer demonstrated. I discussed these chest CT findings with thoracic surgeon Dr.Laki Maguire who believes it to be appropriate to follow-up with a 6-month chest CT scan with IV contrast for further assessment. Assessment & Plan (06/22/2024 11:36 AM EST): Mr. Barrera is a 78 year old male with prostate cancer which appears to be metastatic to the bone. He had mediastinal/hilar lymph nodes with increasing PET activity previously biopsied via EBUS in August 2023 which were negative for malignancy. Recent chest CT with IV contrast done on 06/04/24 shows that the previously enlarged AP window lymph node (previously measuring 13mm up to 8mm) has not decreased in size to 6mm. He has no other concerning mediastinal or hilar adenopathy. PET scan results reviewed with the patient at time of this visit which include multiple new metabolically active bone lesions including worsening at T10, but decreased activity in his mediastinal lymph nodes and left lung apex and prostate gland. I spoke to Dr. Delvalle letting him know that I did review these results with the patient and he will set up an appointment with the patient to discuss them further. At this point it does not appear the patient requires any further Thoracic Surgery intervention. I will have the patient follow up with us on an as needed basis going forward. He should continue to follow with his oncologist and PCP. We would be happy to see the patient in the future if needed. Alcohol abuse 01/08/2021 Overview (03/24/2024): Hospitalized 12/[address] 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 ([facility] V24, [facility] V28) 01/14/2019 Cancer Staging:Clinical stage from 07/09/2023:Stage IVB(cTX, cN0, pM1b, PSA: 10, Grade Group: 4) - Unsigned Weight loss 01/14/2019 Dupuytren contracture 09/11/2017 Elevated PSA 10/12/2014 Overview (03/01/2024): Sees urology Gastroesophageal reflux disease 03/09/2013 Erectile dysfunction 05/01/2009 Amputation finger 10/11/2008 Overview (03/24/2024): Amputation Right fifth finger, tablesaw Hereditary and idiopathic peripheral neuropathy 09/22/2006 Overview (03/24/2024): IMO update Acute pyelonephritis 06/01/2005 Essential hypertension 05/21/2005 Overview (03/01/2024): Last Assessment & Plan: Suboptimally controlled in the office but patient reports good control with systolic blood pressures in the 120s to 130s regularly. 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 Given that, can continue current regimen. That said, because of some mild lower extremity edema, consider switching diltiazem to carvedilol if no major contraindications. Lower extremity edema is often a side effect of calcium channel blockers. Could switch him to carvedilol 6.25 twice daily and uptitrate as necessary for blood pressure control. Encounters Date Type Department Care Team Description 09/21/2024 9:45 AM EDT Office Visit [facility] Hematology Oncology [address] [place] [id number] Shakira-Darleen Delvalle MD Prostate cancer metastatic to multiple sites ([facility] V24, [facility] V28) (Primary Dx); Acute deep vein thrombosis (DVT) of other specified vein of right lower extremity ([facility] V24, [facility] V28); Hereditary and idiopathic peripheral neuropathy; Hilar lymphadenopathy; Elevated PSA; Anxiety; Gait instability 08/31/[address] [address] Christopher Reyes PA Referral (Fax requesting an insurance referral - urology) from Last 3 Months Immunizations Name Administration Dates Next Due Influenza trivalent, 0.5mL ( Fluad) 65yo and older 04/08/2024 Influenza trivalent, 0.5mL ( Fluzone High-dose) 65yo and older 04/05/2023,03/05/2022,03/22/2021,04/06,03/03/2019,02/24/2018,03/10/2017 Influenza trivalent, with pr eservative (Fluzone; Afluria) 6mo and older 04/07/2016,04/18/2015,03/25/2014,03/09,03/27/2012 Influenza, Unspecified 05/13/2021 On The Bill SARS-CoV-2 COVID-19, mRNA, LNP-S, preservative free 10/19/2021,03/13/2021,08/18/2020,07/21 Pneumococcal conjugate 13 va lent (Prevnar 13, PCV13) 2mo and older 04/18/2015 Pneumococcal polysaccharide 23 valent (Pneumovax 23) 2yo and older 12/27/2011 Td Tetanus diptheria (Tdvax) 7yo and older 04/21/2023,11/15/2003 Tdap Tetanus diptheria acell ular pertussis (Boostrix; Adacel) 7yo and older 10/20/2012 Zoster Live 03/27/2012 Zoster recombinant (Shingrix ) 19yo and older 07/05/2020,04/21/2020 Surgical History Surgery Date Site/Laterality Comments OTHER SURGICAL HISTORY PROCEDURE: HISTORY OTHER; COMMENT: traumatic amp rt 5th finger OTHER SURGICAL HISTORY PROCEDURE: HISTORICAL SQUAMOUS CELL CA; COMMENT: 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 maguire Medical History Medical History Date Comments Acute pyelonephritis without lesion of renal medullary necrosis DX:Acute pyelonephritis wi thout lesion of renal medullary necrosis Traumatic amputation of othe r finger(s) (complete) (partial), without mention of complication 10/11/2008 DX:Traumatic amputatio n of other finger(s) (complete) (partial), without mention of complication History of squamous cell car cinoma of skin 10/20/2014 DX:History of squamous cell carcinoma of skin; COMMENT: SCC 04/29 right ear Hypertension 05/21/2005 DX:Hypertension Acute pyelonephritis 06/01/2005 DX:Acute py elonephritis Hereditary and idiopathic pe ripheral neuropathy 09/22/2006 DX:Hereditary and idiopathic peripheral neuropathy; COMMENT: IMO update Erectile dysfunction 05/01/2009 DX:Erectile dysfunction Hyperlipidemia 05/01/2009 DX:Hyperlipidemi a GERD (gastroesophageal reflu x disease) 03/09/2013 DX:GERD (gastroesophageal re flux disease) Elevated PSA 10/12/2014 DX:Elevated PSA; COMMENT: Sees urology History of prostate cancer 09/11/2017 DX:Hi story of prostate cancer; COMMENT: Dr. Marvin, Tx with ADT and radiation Alcohol abuse 01/08/2021 DX:Alcohol abuse ; COMMENT: Hospitalized 12/[address] [facility] d/t withdrawal Family History Medical History Relation Name Comments Stroke Brother at 60 Coronary artery disease Father Other: at 70 Father brain tumo r, but no details Other: at 93 Mother during her lifetime healthy No Known Problems Sister Relation Name Status Comments Brother (Age 70) stroke Father (Age 82) ca brain Mother (Age 94) Sister Alive Social History Tobacco Use Types Packs/Day Years Used Date Smoking Tobacco: Never Smokeless Tobacco: Never Tobacco Cessation:Counseling Given: Not Answered Alcohol Use Standard Drinks/Week Comments Yes 0 (1 standard drink = 0.6 oz pur e alcohol) Sex and Gender Information Value Date Recorded Sex Assigned at Not on file Legal Sex Male 5:28 AM EST Gender Identity Not on file Sexual Orientation Not on file Obstetrics History Last Filed Vital Signs Vital Sign Reading Time Taken Comments Blood Pressure 166/110 09/21/2024 9:57 AM EDT Pulse 85 09/21/2024 9:57 AM EDT Temperature 36.2 ??C (97.2 ??F) 09/21/2024 9:57 AM ED T Respiratory Rate 14 06/17/2024 12:00 PM EST Oxygen Saturation 97% 09/21/2024 9:57 AM EDT Inhaled Oxygen Concentration - - Weight 80.3 kg (177 lb) 09/21/2024 9:57 AM EDT Height 182.9 cm (6') 09/21/2024 9:57 AM EDT Body Mass Index 24.01 09/21/2024 9:57 AM EDT Plan of Treatment Upcoming Encounters Date Type Department Care Team (Late st Contact Info) Description 11/15/2024 7:30 AM EDT Office Visit Adult Medicine [facility] [address] [place] [address] Xiao Campos PA [address] [place], [place] 11/23/2024 9:45 AM EDT Office Visit [facility] Hematology Oncology [address] [place] [address] Darleen To MD [address] [place] [address] Health Maintenance Due Date Last Done Comments Hepatitis A Vaccines (1 of 2 - Risk 2-dose series) 1964 RSV Immunization Adult Patients (1 - 1-dose 75+ series) 2021 Depression Screening 05/23/2022 Falls Risk Assessment 05/23/2022 Social Influencers of Health Screening 05/23/2022 COVID-19 Vaccine ( season) 2024 10/19/2021, 03/13/2021, 09/10/2020, Additional history exists Hypertension/CHF/CAD Annual BMP Blood Test 09/21/2025 09/21/2024, 07/26/2024, 04/27/2024, Additional history exists Cholesterol Screening (Lipid Panel) 11/23/2028 11/24/2023, 11/24/2023 DTaP,Tdap,and Td Vaccines (4 - Td or Tdap) 04/21/2033 04/21/2023, 10/20/2012, 11/15/2003 Hepatitis C Screening Completed 03/08/2013 Pneumococcal Vaccine: 50+ Years Completed 04/18/2015, 12/27/2011 Zoster Vaccines Completed 07/05/2020, 11/2019, 03/27/2012 Influenza Vaccine Completed 04/08/2024, , 03/05/2022, Additional history exists Colorectal Cancer Screening: Stool Based Tests (FOBT/FIT) Discontinued HIB Vaccines Aged Out No longer eligi ble based on patient's age to complete this topic HPV Vaccines Aged Out No longer eligi ble based on patient's age to complete this topic Hepatitis B Vaccines Aged Out No long er eligible based on patient's age to complete this topic IPV Vaccines Aged Out No longer eligi ble based on patient's age to complete this topic MMR Vaccines Aged Out No longer eligi ble based on patient's age to complete this topic Meningococcal ACWY Vaccine Aged Out N o longer eligible based on patient's age to complete this topic Meningococcal B Vaccine Aged Out No l onger eligible based on patient's age to complete this topic RSV Immunization Patients Under 20 months Aged Out No longer eligible based on patient's age to complete this topic Varicella Vaccines Aged Out No longer eligible based on patient's age to complete this topic Procedures Procedure Name Priority Date/Time Associated Diagnosis Comments EXTERNAL CLINICAL LAB 10/14/2024 CBC WITH AUTO DIFFERENTIAL Routine 09/21/2024 10:30 AM EDT Prostate cancer metastatic to multiple sites ([facility] V24, [facility] V28) CBC AND DIFFERENTIAL Routine 09/21/2024 10:30 AM EDT Prostate cancer metastatic to multiple sites (CMS/HCC V24, CMS/HCC V28) COMPREHENSIVE METABOLIC PANEL Routine 09/21/2024 10:30 AM EDT Prostate cancer metastatic to multiple sites (CMS/HCC V24, CMS/HCC V28) PROSTATE SPECIFIC ANTIGEN DIAGNOSTIC Routine 09/21/2024 10:30 AM EDT Prostate cancer metastatic to multiple sites (CMS/HCC V24, CMS/HCC V28) LIPID PANEL Routine 11/24/2023 HEPATITIS C SCREENING Routine 03/08/2013 from Last 3 Months or Most Recently Relevant to Health Maintenance Results * External clinical lab (10/14/2024) Provider [facility] LAB BLOOD ORDERABLES Fin al Result * Prostate specific antigen diagnostic (09/21/2024 10:30 AM EDT) PSA 1.20 0.00 - 4.00 ng/mL LAB CHEMISTRY METHOD 09/21/2024 3:41 PM EDT [facility] Blood Venous blood specimen / Unknown Venipuncture / Unknown 09/21/2024 10:30 AM EDT 09/21/2024 1:34 PM EDT Narrative [facility] - 09/21/2024 3:41 PM EDT The Siemens Advia Centaur Chemiluminescent Immunoassay is used. Results obtained with different assay methods or kits cannot be used interchangeably. Results cannot be interpreted as absolute evidence of the presence or absence of malignant disease. us Darleen To MD LAB BLOOD ORDERABLE S Final Result [facility] [address] [place] [address], * (ABNORMAL) CBC auto differential (09/21/2024 10:30 AM EDT) Pathologist [facility] WBC 6.0 4.8 - 10.8 K/mcL LAB HEMETOLOGY METHOD 09/21/2024 1:48 PM EDT [facility] RBC 4.20(L) 4.50 - 5.50 M/mcL LAB HEMETOLOGY METHOD 09/21/2024 1:48 PM EDT [facility] Hemoglobin 13.8 13.5 - 17.5 g/dL LAB HEMETOLOGY METHOD 09/21[facility]2024 [facility] Hematocrit 40.0(L) 42.0 - 54.0 % LAB HEMETOLOGY METHOD 09/21/2024 1:48 PM [facility] MCV 95.9 79.0 - 98.0 FL LAB HEMETOLOGY METHOD 09/21/2024 1:48 PM [facility] MCH 33.1(H) 27.0 - 32.0 pcg LAB HEMETOLOGY METHOD 09/21/2024 1:48 PM [facility] MCHC 34.5 32.0 - 37.0 g/dL LAB HEMETOLOGY METHOD 09/21/2024 1:48 PM [facility] RDW 13.8 11.0 - 15.0 % LAB HEMETOLOGY METHOD 09/21/2024 1:48 PM [facility] Platelets 193 130 - 400 K/mcL LAB HEMETOLOGY METHOD 09/21/2024 1:48 PM [facility] MPV 10.3 7.0 - 11.0 FL LAB HEMETOLOGY METHOD 09/21/2024 1:48 PM [facility] NRBC 0.0 <1.0 % LAB HEMETOLOGY METHOD 09/21/2024 1:48 PM [facility] NRBC Absolute 0.00 <0.10 K/mcL LAB HEMETOLOGY METHOD 09/21/2024 1:48 PM EDT [facility] Neutrophils Relative 63.9 % LAB HEMETOLOGY METHOD 09/21/2024 1:48 PM EDT [facility] Lymphocytes Relative 16.7 % LAB HEMETOLOGY METHOD 09/21/2024 1:48 PM [facility] Monocytes Relative 9.3 % LAB HEMETOLOGY METHOD 09/21/2024 1:48 PM [facility] Eosinophils Relative 8.6 % LAB HEMETOLOGY METHOD 09/21/2024 1:48 PM [facility] Basophils Relative 1.0 % LAB HEMETOLOGY METHOD 09/21/2024 1:48 PM [facility] Immature Granulocytes Relative 0.5 % LAB HEMETOLOGY METHOD 09/21/2024 1:48 PM [facility] Neutrophils Absolute 3.86 1.50 - 7.00 K/mcL LAB HEMETOLOGY METHOD 09/21/2024 1:48 PM [facility] Lymphocytes Absolute 1.01 1.00 - 5.00 K/mcL LAB HEMETOLOGY METHOD 09/21/2024 1:48 PM [facility] Monocytes Absolute 0.56 0.20 - 1.00 K/mcL LAB HEMETOLOGY METHOD 09/21/2024 1:48 PM [facility] Eosinophils Absolute 0.52(H) 0.00 - 0.50 K/mcL LAB HEMETOLOGY METHOD 09/21/2024 1:48 PM [facility] Basophils Absolute 0.06 0.00 - 0.20 K/mcL LAB HEMETOLOGY METHOD 09/21/2024 1:48 PM [facility] Immature Granulocytes Absolute 0.03 0.00 - 0.03 K/mcL LAB HEMETOLOGY METHOD 09/21/2024 1:48 PM [facility] Blood Venous blood specimen / Unknown Venipuncture / Unknown 09/21/2024 10:30 AM EDT 09/21/2024 1:35 PM EDT Darleen To MD LAB BLOOD ORDERABLE S Final Result [facility] [address] [place] [address], [place] [phone] * Comprehensive metabolic panel (09/21/2024 10:30 AM EDT) Sodium 133 133 - 145 mmol/L LAB CHEMISTRY METHOD 09/21/2024 3:23 PM [facility] Potassium 4.7 3.5 - 5.5 mmol/L LAB CHEMISTRY METHOD 09/21/2024 3:23 PM [facility] Chloride 103 96 - 110 mmol/L LAB CHEMISTRY METHOD 09/21/2024 3:23 PM [facility] CO2 23 21 - 32 mmol/L LAB CHEMISTRY METHOD 09/21/2024 3:23 PM [facility] Anion Gap 7 3 - 11 LAB CHEMISTRY METHOD 09/21/2024 3:23 PM [facility] Glucose 93 70 - 100 mg/dL LAB CHEMISTRY METHOD 09/21/2024 3:23 PM [facility] BUN 11 5 - 25 mg/dL LAB CHEMISTRY METHOD 09/21/2024 3:23 PM [facility] Creatinine 0.74 0.70 - 1.30 mg/dL LAB CHEMISTRY METHOD 09/21/2024 3:23 PM [facility] eGFR 93 >=60 mL/min/1. 73m2 LAB CHEMISTRY METHOD 09/21/2024 3:23 PM [facility] Comment:Calculation based on the??Chronic Kidney Disease Epidemiology Collaboration (CKD-EPI) equation refit??without adjustment for race. BUN/Creatinine Ratio 14.9 LAB CHEMISTRY METHOD 09/21/2024 3:23 PM [facility] Calcium 9.3 8.5 - 10.5 mg/dL LAB CHEMISTRY METHOD 09/21/2024 3:23 PM [facility] AST (SGOT) 15 10 - 42 unit/L LAB CHEMISTRY METHOD 09/21/2024 3:23 PM [facility] ALT (SGPT) 18 10 - 60 unit/L LAB CHEMISTRY METHOD 09/21/2024 3:23 PM [facility] Alkaline Phosphatase 48 42 - 121 unit/L LAB CHEMISTRY METHOD 09/21/2024 3:23 PM [facility] Total Protein 6.9 6.0 - 8.0 g/dL LAB CHEMISTRY METHOD 09/21/2024 3:23 PM [facility] Albumin 3.9 3.2 - 5.0 g/dL LAB CHEMISTRY METHOD 09/21/2024 3:23 PM [facility] Total Bilirubin 0.7 0.0 - 1.4 mg/dL LAB CHEMISTRY METHOD 09/21/2024 3:23 PM [facility] Blood Venous blood specimen / Unknown Venipuncture / Unknown 09/21/2024 10:30 AM EDT 09/21/2024 1:34 PM EDT Darleen To MD LAB BLOOD ORDERABLE S Final Result [facility] [address] [place] [address], * Lipid panel (11/24/2023) LDL/HDL Ratio 3 0 - 4 Triglycerides 122 0 - 150 mg/dL Cholesterol 138 0 - 200 mg/dL HDL 50 >=40 mg/dL LDL Cholesterol 64 0 - 100 mg/dL Blood Venous blood specimen / Unknown us Historical Provider LAB BLOOD ORDERABLES Felicity l Result * Hepatitis C Screening (03/08/2013) Hepatitis C Screening abstracted us Historical Provider HEALTH MAINTENANCE Final Result from Last 3 Months or Most Recently Relevant to Health Maintenance Insurance [facility] Care Teams Human Resources Partner Relationship Specialty Start Date End Date Christopher Reyes PA [address] [place] [phone] PCP - General Internal Medicine 06/17/24
--- OUTSIDE RECORDS SUMMARY | 2024-10-26 11:09 | XMS_ITS ---
Author Organization [facility] Address [address] [place] [address] Care Team Providers Care Gunite Mixer Name Role Phone Mike Brooks MD Primary Care Provider [phone] Active Problems Problem Noted Date Diagnosed Date [...] Date Treatment Medications Discontinue Reason Plan Provider [facility] LEUPROLIDE 22.5MG (ELIGARD) EVERY 3 MONTHS 03/25/2022 07/24/2023 leuprolide (ELIGARD) Therapy Complete Darleen Lanza MD Radiation Treatments * No radiation treatments are documented for this patient in [facility]. Treatments may have been administered in another system.
--- OUTSIDE RECORDS SUMMARY | 2024-10-26 11:09 | XMS_ITS | Encounter Summary ---
Author Organization [facility] Address [address] [place] [address] Phone Care Team Providers Care Captain Fishing Vessel Name Role Phone Christopher Reyes PA-C Primary Care Provider Encounter Details Date Type Department Care Team (Late st Contact Info) Description 06/13/2022 Documentation Only [facility] [address] [place] [phone] Rika Hahn PA Social History Tobacco Use [...] [facility] [address] [place] [phone] Raoul Juan MD [address] [place] [phone] documented as of this encounter Visit Diagnoses Not on filedocumented in this encounter Care Teams Captain Fishing Vessel Relationship Specialty Start Date End Date Christopher Reyes PA-C [address] [place] [phone] PCP - General Physician Sausage Stringer 09/28/24 documented as of this encounter
--- OUTSIDE RECORDS SUMMARY | 2024-10-26 11:09 | XMS_ITS | Patient Health Record ---
[facility] Address [address] [place] [address] Care Team Providers Care Door Frame Assembler Machine Name Role Phone Christopher Lares Primary Care Provider Unav Angelito Cook Unavailable [phone] Allergies Allergen (clinical drug ingredient) Drug/Non Drug [...] Insured Coverage Start Date Coverage End Date [facility] [address] [place] [address] [id number] Uzair Cook Self - patient is [...]
--- OUTSIDE RECORDS SUMMARY | 2024-10-26 11:09 | XMS_ITS | Encounter Summary ---
Author Organization [facility] Address [address] [place] [address] Phone Care Team Providers Care Coil Machine Operator Name Role Phone Christopher Reyes PA-C Primary Care Provider Encounter Details Date Type Department Care Team (Late Contact Info) Description 11/19/2021 Documentation Only [facility] [address] [place] [phone] [facility] [place], [place] [address] [place] [address] Social History Tobacco Use Types [...] Visit [facility] [address] [place] [phone] Raoul Juan MD [address] [place] [phone] documented as of this encounter Visit Diagnoses Not on filedocumented in this encounter Care Teams Coil Machine Operator Relationship Specialty Start Date End Date Christopher Reyes PA-C [address] [place] [address] PCP - General Physician Primary School Principal 09/28/24 documented as of this encounter
== END 2024-10-26 10:37 | disposition home or self-care (01) ==
LOC: HO.HUSH 10:09
PROVIDERS: PCP Physician Assistant Medical; Visit Provider Urology
DX: C61 Malignant neoplasm of prostate (principal); C77.2 Secondary and unspecified malignant neoplasm of intra-abdominal lymph nodes
CPT/HCPCS: 99213

== ENCOUNTER 2025-04-07 11:19 | Outpatient (REF) | payer BC, SELFPAY ==
[2025-04-07 13:55] LABS: Prostate Specific Antigen 2.42 ng/mL (<0.05-4.0)
--- OUTSIDE RECORDS SUMMARY | 2025-04-07 14:26 | XMS_ITS | Encounter Summary ---
Author Organization [facility] Address [address] [place] [address] Phone Care Team Providers Care Fire Equipment Inspector Helper Name Role Phone Christopher Reyes PA-C Primary Care Provider Encounter Details Date Type Department Care Team (Late st Contact Info) Description 02/09/2024 Documentation Only [facility] [address] [place] [phone] Griselda Heck Social History Tobacco Use Types Packs/Day Years Used Date Smoking Tobacco: Never Sex and Gender Information Value Date Recorded Sex Assigned at Not on file Legal Sex Male 12:02 PM EDT Gender Identity Not on file Sexual Orientation Not on file documented as of this encounter Plan of Treatment Upcoming Encounters Date Type Department Care Team (Late st Contact Info) Description 08/30/2025 1:30 PM EDT Office Visit [facility] [address] [place] [phone] Raoul Juan MD [address] [place] [address] [place] [phone] documented as of this encounter Visit Diagnoses Not on filedocumented in this encounter Care Teams Fire Equipment Inspector Helper Relationship Specialty Start Date End Date Christopher Reyes PA-C [address] [place] [phone] PCP - General Physician Stator Tester 09/28/24 documented as of this encounter
--- OUTSIDE RECORDS SUMMARY | 2025-04-07 14:26 | XMS_ITS | Encounter Summary ---
Author Organization [facility] Address [address] [place] [address] Phone Care Team Providers Care Work Force Advisor Name Role Phone Christopher Reyes PA-C Primary Care Provider Encounter Details Date Type Department Care Team (Late st Contact Info) Description 06/13/2022 Documentation Only [facility] [address] [place] [phone] Rika Hahn PA Social History Tobacco Use [...] Visit [facility] [address] [place] [phone] Raoul Juan MD [address] [facility] [place] [phone] documented as of this encounter Visit Diagnoses Not on filedocumented in this encounter Care Teams Work Force Advisor Relationship Specialty Start Date End Date Christopher Reyes PA-C [address] [place] [phone] PCP - General Physician Certified Travel Counselor 09/28/24 documented as of this encounter
--- OUTSIDE RECORDS SUMMARY | 2025-04-07 14:26 | XMS_ITS | Encounter Summary ---
Author Organization [facility] Address [address] [place] [address] Phone Care Team Providers Care Hide Inspector Name Role Phone Christopher Reyes PA-C Primary Care Provider Encounter Details Date Type Department Care Team (Late st Contact Info) Description 05/20/2022 Documentation Only [facility] [address] [place] [phone] Rika Hahn PA Social History Tobacco Use [...] Visit [facility] [address] [place] [phone] Raoul Juan MD [address] [place] [phone] documented as of this encounter Visit Diagnoses Not on filedocumented in this encounter Care Teams Hide Inspector Relationship Specialty Start Date End Date Christopher Reyes PA-C [address] [place] [phone] PCP - General Physician Cylinder Steamer 09/28/24 documented as of this encounter
--- OUTSIDE RECORDS SUMMARY | 2025-04-07 14:26 | XMS_ITS | Clinical Summary ---
Author Organization [facility] Address [address] [place] [address] Phone Care Team Providers Care Computer Systems Software Architect Name Role Phone Christopher Reyes Primary Care Provider [phone] Allergies Active Allergy Reactions Criticality Noted Date Comments Celecoxib Swelling,Itching Medium 06/01/2012 Levofloxacin Other,Seizures High 02/15/2021 Levothyroxine Fatigue 03/03/2025 Prednisone Flushing Low 06/17/2012 Face turned red - no trouble breathing or lip swelling. Medications omeprazole (PriLOSEC) [address] capsule Take 1 capsule (20 mg total) by mouth daily. Active tadalafiL (CIALIS) 20 mg tablet Take 1 tablet (20 mg total) by mouth daily as needed for erectile dysfunction. Active tamsulosin (FLOMAX) 0.4 mg 24 hr capsule Take 1 capsule (0.4 mg total) by mouth daily. Active finasteride (PROSCAR) 5 mg tablet Every Evening Active oxyBUTYnin XL (DITROPAN-XL) 5 mg 24 hr tablet Take 5 mg by mouth daily. Active calcium phosphate/carlos min D2 (CALCIUM-VITAM IN D2 ORAL) Calcium Carb-Choleca lciferol 1000-20 MG-MCG Active enzalutamide (XTANDI) 80 mg tablet Take 1 tablet (80 mg total) by mouth 1 (one) time each day 4 Active lisinopril (PRINIVIL,ZEST RIL) 40 mg tablet Take 1 tablet (40 mg total) by mouth 1 (one) time each day. 90 tablet 1 5 Active spironolactone (Aldactone) 50 mg tablet Take 1 tablet (50 mg total) by mouth 1 (one) time each day. 30 each 5 5 Active rosuvastatin (CRESTOR) 10 mg tablet TAKE 1 TABLET BY MOUTH EVERY DAY 90 tablet 5 Active sodium chloride 1,000 mg soluble tablet TAKE 1 TABLET (1 G TOTAL) BY MOUTH 1 (ONE) TIME EACH DAY. 90 tablet 1 5 Active carvediloL (COREG) 25 mg tablet TAKE 1 TABLET BY MOUTH TWICE A DAY WITH FOOD 180 tablet 1 5 Active Eliquis 2.5 mg tablet TAKE 1 TABLET BY MOUTH TWICE A DAY 60 tablet 5 5 Active Eliquis 2.5 mg tablet TAKE 1 TABLET BY MOUTH TWICE A DAY 60 tablet 2 5 025 Discontinued Active Problems Problem Noted Date Diagnosed Date [...] recent chest CT scan was performed at [facility] on December 05, 2023 for which images [...] & Plan (06/22/2024 11:36 AM EST): Mr. Martinez is a 78 year old male with [...] 01/08/2021 Overview (03/24/2024): Hospitalized 12/2020 at [facility] d/t withdrawal Mixed hyperlipidemia 01/14/2019 Prostate cancer metastatic t o multiple sites ([facility] V24, [facility] V28) 01/14/2019 Cancer Staging:Clinical stage from 07/09/2023:Stage [...] Encounters Date Type Department Care Team Description 03/22/2025 3:00 PM EDT Office Visit Adult Medicine [address] [phone] Sofie Guerra PA Essential hypertension (Primary Dx); Hypo-osmolality and hyponatremia; Need for prophylactic vaccination and inoculation against influenza 03/16/2025 Telephone Adult Medicine [address] [phone] Christopher Reyes PA 03/03/2025 9:30 AM EDT Office Visit Adult Medicine [address] [phone] Sofie Guerra PA Essential hypertension (Primary Dx); Excessive drinking alcohol; Hyponatremia 02/28/2025 Telephone Adult Medicine [address] [phone] Christopher Reyes PA 02/24/2025 10:00 AM EDT Office Visit [facility] Hematology Oncology [address] [place] [phone] Darleen To MD Prostate cancer metastatic to multiple sites (CMS/HCC V24, CMS/HCC V28) (Primary Dx); Anemia associated with malignant neoplastic disease (CMS/HCC V24, CMS/HCC V28); Gait instability; Elevated PSA 02/08/2025 Telephone [facility] [address] [phone] Christopher Reyes PA 01/12/[address] [facility] Hematology Oncology [address] [place] [phone] Darleen To MD from Last 3 Months Immunizations Immunization Administration Dates Next Due Influenza trivalent, 0.5mL ( Fluad) 65yo and older 03/22/2025,04/08/2024 Influenza trivalent, 0.5mL ( Fluzone High-dose) 65yo and older 04/05/2023,03/05/2022,03/22/2021,04/06,03/03/2019,02/24/2018,03/10/2017 Influenza trivalent, with pr eservative (Fluzone; Afluria) 6mo and older 04/07/2016,04/18/2015,03/25/2014,03/09,03/27/2012 Influenza, Unspecified 05/13/2021 Pfizer SARS-CoV-2 COVID-19, mRNA, LNP-S, preservative free 10/19/2021,03/13/2021,08/18/2020,07/21 [...] 04/29 right ear OTHER SURGICAL HISTORY PROCEDURE: IA BIOPSY THYROID PERCUTANEOUS CORE NEEDLE; COMMENT: negative [...] DX:Alcohol abuse ; COMMENT: Hospitalized 12/2020 at [facility] ER d/t withdrawal Family History Medical History Relation [...] drink = 0.6 oz pur e alcohol) 2-3 beers daily Housing Instability Answer Date Recorde d Are you worried that in the next 2 months you may not have stable housing? No 11/15/2024 Food Access & Nutrition Answer Date Rec orded Do you have access to a vari ety of food including fruits and vegetables? Yes 11/15/2024 Health Literacy Answer Date Recorded How often do you need to hav e someone help you when you read instructions, pamphlets, or other written material from your doctor or pharmacy? Never 11/15/2024 Caregiver: How often do you need to have someone help you when you read instructions, pamphlets, or other written material from your doctor or pharmacy? Not on file 11/15/2024 Financial Risk Answer Date Recorded How hard is it for you to pa y for the very basics like food, housing, medical care, and air conditioning / heating? Not very hard 11/15/2024 Transportation Answer Date Recorded Has the lack of transportati on kept you from meetings, work, or from getting things needed for daily living? No Has the lack of transportati on kept you from medical appointments or from getting medications? No 11/15/2024 Social Isolation Answer Date Recorded How often do you feel lonely or isolated from th ose around you? Never 11/15/2024 Food Risk Answer Date Recorded Within the past 12 months we worried whether our food would run out before we got money to buy more. Not on file 11/15/2024 Within the past 12 months th e food we bought just didn't last and we didn't have money to get more. Never true 11/15/2024 Dependent Care Answer Date Recorded Do you need help finding or paying for care for your loved ones. For example, children's author or elderly care for an older adult? No 11/15/2024 Education Answer Date Recorded Do you think completing more education or training, like finishing a GED, going to college, or learning a trade, would be helpful for you? No 11/15/2024 Employment and Income Answer Date Recor ded During the last four weeks, have you been actively looking for work? No 11/15/2024 Living Situation Answer Date Recorded What is your living situation? Unrecognized valu e 11/15/2024 Sex and Gender Information Value Date Recorded Sex Assigned at Not on file Legal Sex Male 5:28 AM EST Gender Identity Not on file Sexual Orientation Not on file Obstetrics History Last Filed Vital Signs Vital Sign Reading Time Taken Comments Blood Pressure 128/82 03/22/2025 3:27 PM EDT Pulse 84 03/22/2025 3:13 PM EDT Temperature 36.3 C (97.3 F) 03/22/2025 3:13 PM EDT Respiratory Rate 16 03/22/2025 3:13 PM EDT Oxygen Saturation 97% 03/22/2025 3:13 PM EDT Inhaled Oxygen Concentration - - Weight 80.5 kg (177 lb 6.4 oz) 03/22/2025 3:13 P M EDT Height 182.9 cm (6') 03/22/2025 3:13 PM EDT Body Mass Index 24.06 03/22/2025 3:13 PM EDT Plan of Treatment Upcoming Encounters Date Type Department Care Team (Late st Contact Info) Description 04/11/2025 8:30 AM EDT Office Visit Adult Medicine [facility] [address], [place] [phone] Xiao Campos PA [address], [place] 05/26/2025 10:00 AM EST Office Visit [facility] Hematology Oncology [address] [place] [phone] Darleen To MD [address] [place] [phone] Health Maintenance Due Date Last Done Comments Hepatitis A Vaccines (1 of 2 - Risk 2-dose series) 1964 RSV Immunization Adult Patients (1 - 1-dose 75+ series) 2021 COVID-19 Vaccine ( season) 2025 10/19/2021, 03/13/2021, 09/10/2020, Additional history exists Falls Risk Assessment 11/15/2025 11/15/2024, 025 Social Influencers of Health Screening 11/15/2025 11/15/2024 Hypertension/CHF/CAD Annual BMP Blood Test 02/24/2026 02/24/2025, 11/23/2024, 09/21/2024, Additional history exists Cholesterol Screening (Lipid Panel) 11/23/2028 11/24/2023, 11/24/2023 DTaP,Tdap,and Td Vaccines (4 - Td or Tdap) 04/21/2033 04/21/2023, 10/20/2012, 11/15/2003 Hepatitis C Screening Completed 03/08/2013 Pneumococcal Vaccine: 50+ Years Completed 04/18/2015, 12/27/2011 Zoster Vaccines Completed 07/05/2020, 1111/2019, 03/27/2012 Depression Screening Completed 11/15/2024 Influenza Vaccine Completed 03/22/2025, , 04/05/2023, Additional history exists Colorectal Cancer Screening: Stool [...] Procedure Name Priority Date/Time Associated Diagnosis Comments CBC WITH AUTO DIFFERENTIAL Routine 02/24/2025 10:43 AM EDT Prostate cancer metastatic to multiple sites ([facility] V24, [facility] V28) CBC AND DIFFERENTIAL Routine 02/24/2025 10:43 AM EDT Prostate cancer metastatic to multiple sites ([facility] V24, [facility] V28) COMPREHENSIVE METABOLIC PANEL Routine 02/24/2025 10:43 AM EDT Prostate cancer metastatic to multiple sites ([facility] V24, [facility] V28) PROSTATE SPECIFIC ANTIGEN DIAGNOSTIC Routine 02/24/2025 10:43 AM EDT Prostate cancer metastatic to multiple sites ([facility] V24, [facility] V28) LIPID PANEL Routine 11/24/2023 HEPATITIS C SCREENING Routine 03/08/2013 from Last 3 Months or Most Recently Relevant to Health Maintenance Results * Prostate specific antigen diagnostic (02/24/2025 10:43 AM EDT) PSA 1.19 0.00 - 4.00 ng/mL LAB CHEMISTRY METHOD 02/24/2025 2:07 PM EDT [facility] Blood Venous blood specimen / Unknown Venipuncture / Unknown 02/24/2025 10:43 AM EDT 02/24/2025 11:24 AM EDT [facility] - 02/24/2025 2:07 PM EDT The Siemens [employer] Connection[employer] Chemiluminescent Immunoassay is used. Results obtained with different assay methods or kits cannot be used interchangeably. Results cannot be interpreted as absolute evidence of the presence or absence of malignant disease. Darleen To MD LAB BLOOD ORDERABLE S Final Result [facility] [address] [place] [address], * (ABNORMAL) CBC auto differential (02/24/2025 10:43 AM EDT) [facility] WBC 5.0 4.8 - 10.8 K/mcL LAB HEMETOLOGY METHOD 02/24/2025 11:39 AM EDT [facility] RBC 4.20(L) 4.50 - 5.50 M/mcL LAB HEMETOLOGY METHOD 02/24/2025 11:39 AM [facility] Hemoglobin 13.9 13.5 - 17.5 g/dL LAB HEMETOLOGY METHOD 02/24/2025 11:39 AM [facility] Hematocrit 39.4(L) 42.0 - 54.0 % LAB HEMETOLOGY METHOD 02/24/2025 11:39 AM [facility] MCV 94.9 79.0 - 98.0 FL LAB HEMETOLOGY METHOD 02/24/2025 11:39 AM [facility] MCH 33.5(H) 27.0 - 32.0 pcg LAB HEMETOLOGY METHOD 02/24/2025 11:39 AM [facility] MCHC 35.3 32.0 - 37.0 g/dL LAB HEMETOLOGY METHOD 02/24/2025 11:39 AM [facility] RDW 12.7 11.0 - 15.0 % LAB HEMETOLOGY METHOD 02/24/2025 11:39 AM [facility] Platelets 199 130 - 400 K/mcL LAB HEMETOLOGY METHOD 02/24/2025 11:39 AM [facility] MPV 9.8 7.0 - 11.0 FL LAB HEMETOLOGY METHOD 02/24/2025 11:39 AM [facility] NRBC 0.0 <1.0 % LAB HEMETOLOGY METHOD 02/24/2025 11:39 AM [facility] NRBC Absolute 0.00 <0.10 K/mcL LAB HEMETOLOGY METHOD 02/24/2025 11:39 AM [facility] Neutrophils Relative 62.1 % LAB HEMETOLOGY METHOD 02/24/2025 11:39 AM [facility] Lymphocytes Relative 18.1 % LAB HEMETOLOGY METHOD 02/24/2025 11:39 AM [facility] Monocytes Relative 8.6 % LAB HEMETOLOGY METHOD 02/24/2025 11:39 AM [facility] Eosinophils Relative 9.4 % LAB HEMETOLOGY METHOD 02/24/2025 11:39 AM [facility] Basophils Relative 1.4 % LAB HEMETOLOGY METHOD 02/24/2025 11:39 AM [facility] Immature Granulocytes Relative 0.4 % LAB HEMETOLOGY METHOD 02/24/2025 11:39 AM [facility] Neutrophils Absolute 3.09 1.50 - 7.00 K/mcL LAB HEMETOLOGY METHOD 02/24/2025 11:39 AM [facility] Lymphocytes Absolute 0.90(L) 1.00 - 5.00 K/mcL LAB HEMETOLOGY METHOD 02/24/2025 11:39 AM [facility] Monocytes Absolute 0.43 0.20 - 1.00 K/mcL LAB HEMETOLOGY METHOD 02/24/2025 11:39 AM [facility] Eosinophils Absolute 0.47 0.00 - 0.50 K/mcL LAB HEMETOLOGY METHOD 02/24/2025 11:39 AM EDT [facility] Basophils Absolute 0.07 0.00 - 0.20 K/[facility] LAB HEMETOLOGY METHOD 02/24/2025 11:39 AM EDT [facility] Immature Granulocytes Absolute 0.02 0.00 - 0.03 K/[facility] LAB HEMETOLOGY METHOD 02/24/2025 11:39 AM EDT [facility] Blood Venous blood specimen / Unknown Venipuncture / Unknown 02/24/2025 10:43 AM EDT 02/24/2025 11:24 AM EDT Darleen To MD LAB BLOOD ORDERABLE S Final Result [facility] [address] [place] [address], * (ABNORMAL) Comprehensive metabolic panel (02/24/2025 10:43 AM EDT) Sodium 128(L) 133 - 145 mmol/L LAB CHEMISTRY METHOD 02/24/2025 1:35 PM [facility] Potassium 4.9 3.5 - 5.5 mmol/L LAB CHEMISTRY METHOD 02/24/2025 1:35 PM [facility] Chloride 98 96 - 110 mmol/L LAB CHEMISTRY METHOD 02/24/2025 1:35 PM [facility] CO2 23 21 - 32 mmol/L LAB CHEMISTRY METHOD 02/24/2025 1:35 PM [facility] Anion Gap 7 3 - 11 LAB CHEMISTRY METHOD 02/24/2025 1:35 PM [facility] Glucose 92 70 - 100 mg/dL LAB CHEMISTRY METHOD 02/24/2025 1:35 PM [facility] BUN 13 5 - 25 mg/dL LAB CHEMISTRY METHOD 02/24/2025 1:35 PM [facility] Creatinine 0.79 0.70 - 1.30 mg/dL LAB CHEMISTRY METHOD 02/24/2025 1:35 PM [facility] eGFR 91 >=60 mL/min/1. 73m2 LAB CHEMISTRY METHOD 02/24/2025 1:35 PM [facility] Comment:Calculation based on the Chronic Kidney Disease Epidemiology Collaboration (CKD-EPI) equation refit without adjustment for race. BUN/Creatinine Ratio 16.5 LAB CHEMISTRY METHOD 02/24/2025 1:35 PM [facility] Calcium 9.2 8.5 - 10.5 mg/dL LAB CHEMISTRY METHOD 02/24/2025 1:35 PM [facility] AST (SGOT) 21 10 - 42 unit/L LAB CHEMISTRY METHOD 02/24/2025 1:35 PM [facility] ALT (SGPT) 20 10 - 60 unit/L LAB CHEMISTRY METHOD 02/24/2025 1:35 PM [facility] Alkaline Phosphatase 46 42 - 121 unit/L LAB CHEMISTRY METHOD 02/24/2025 1:35 PM [facility] Total Protein 6.9 6.0 - 8.0 g/dL LAB CHEMISTRY METHOD 02/24/2025 1:35 PM [facility] Albumin 4.1 3.2 - 5.0 g/dL LAB CHEMISTRY METHOD 02/24/2025 1:35 PM [facility] Total Bilirubin 0.6 0.0 - 1.4 mg/dL LAB CHEMISTRY METHOD 02/24/2025 1:35 PM [facility] Blood Venous blood specimen / Unknown Venipuncture / Unknown 02/24/2025 10:43 AM EDT 02/24/2025 11:24 AM EDT Darleen To MD LAB BLOOD ORDERABLE S Final Result [facility] [address] [place] [address], * Lipid panel (11/24/2023) LDL/HDL Ratio 3 0 - 4 Triglycerides 122 0 - 150 mg/dL Cholesterol 138 0 - 200 mg/dL HDL 50 >=40 mg/dL LDL Cholesterol 64 0 - 100 mg/dL Blood Venous blood specimen / Unknown Historical Provider MD LAB BLOOD ORDERABLES Felicity l Result * Hepatitis C Screening (03/08/2013) Pathologist [facility] Hepatitis C Screening abstracted Historical Provider HEALTH MAINTENANCE Final Result from Last 3 Months or Most Recently Relevant to Health Maintenance Insurance [facility] Care Teams Computer Systems Software Architect Relationship Specialty Start Date End Date Christopher Reyes PA [address] [place] [id number] PCP - General Internal Medicine 06/17/24
--- OUTSIDE RECORDS SUMMARY | 2025-04-07 14:26 | XMS_ITS | Encounter Summary ---
Author Organization [facility] Address [address] [place] [address] Phone Care Team Providers Care Meeting Facilitator Name Role Phone Christopher Reyes PA-C Primary Care Provider Encounter Details Date Type Department Care Team (Late st Contact Info) Description 03/21/2022 Documentation Only [facility] [address] [place] [phone] Rika Hahn PA Social History Tobacco Use [...] Visit [facility] [address] [place] [phone] Raoul Juan MD [address] [place] [phone] documented as of this encounter Visit Diagnoses Not on filedocumented in this encounter Care Teams Meeting Facilitator Relationship Specialty Start Date End Date Christopher Reeys PA-C [address] [place] [phone] PCP - General Physician Credit Collections Rep 09/28/24 documented as of this encounter
--- OUTSIDE RECORDS SUMMARY | 2025-04-07 14:26 | XMS_ITS | Encounter Summary ---
Author Organization [facility] Address [address] [place] [address] Phone Care Team Providers Care Child And Adolescent Psychologist Name Role Phone Christopher Reyes PA-C Primary Care Provider Encounter Details Date Type Department Care Team (Late Contact Info) Description 02/10/2025 Documentation Only [facility] [address] [place] [phone] Phylicia Calvin DC [address] [place] [phone] Social History Tobacco Use Types Packs/Day Years [...] Visit [facility] [address] [place] [phone] Raoul Juan MD [address] [place] [phone] documented as of this encounter Visit Diagnoses Not on filedocumented in this encounter Care Teams Child And Adolescent Psychologist Relationship Specialty Start Date End Date Christopher Reyes PA-C [address] [place] [phone] PCP - General Physician Motion Picture Camera Operator 09/28/24 documented as of this encounter
--- OUTSIDE RECORDS SUMMARY | 2025-04-07 14:27 | XMS_ITS | Clinical Summary ---
Author Organization [facility] Address [address] [place] [address] Care Team Providers Care Toolsmith Name Role Phone Mike Brooks MD Primary Care Provider [phone] Allergies Active Allergy Reactions Criticality Noted Date [...] 57 08/20/2023 1:13 PM EST Temperature 36.2 C (97.1 F) 08/20/2023 1:13 PM EST Respiratory Rate - - Oxygen Saturation 99% [...] 10/20/2022 10/20/2012, 11/15/2003 COVID-19 Vaccine ( season) 2025 10/19/2021, 03/13/2021, 08/18/2020, Additional history exists Influenza Vaccine (#1) 2025 3, 03/05/2022, 03/22/2021, Additional history exists Pneumococcal Vaccine Completed 04/18/2015, 12/27/19 12 Shingrix-Zoster Vaccine Completed 07/05/2020, 04/21 Hepatitis B Vaccines Aged Out No long er eligible based on patient's age to complete this topic RSV Ped < 20 months Aged Out No longe r eligible based on patient's age to complete this topic Care Teams Toolsmith Relationship Specialty Start Date End Date Mike Brooks MD PCP - General Robotics Software Engineer 10/09/17
--- OUTSIDE RECORDS SUMMARY | 2025-04-07 14:27 | XMS_ITS ---
Author Organization [facility] Address [address] [place] [address] Care Team Providers Care Wafer Fabricator Name Role Phone Mike Brooks MD Primary Care Provider [phone] Active Problems Problem Noted Date Diagnosed Date [...] Date Treatment Medications Discontinue Reason Plan Provider [facility] LEUPROLIDE 22.5MG (ELIGARD) EVERY 3 MONTHS 03/25/2022 07/24/2023 leuprolide (ELIGARD) Therapy Complete Darleen Lanza MD Radiation Treatments * No radiation treatments are documented for this patient in [facility]. Treatments may have been administered in another system.
--- OUTSIDE RECORDS SUMMARY | 2025-04-07 14:27 | XMS_ITS | Clinical Summary ---
Author Organization [facility], Address [address] [place] [address] [place] [address] Phone Care Team Providers Care Supreme Court Justice Name Role Phone Christopher Reyes PA-C Primary [...] Encounters Date Type Department Care Team Description 02/16/2025 Documentation Only [facility] [address] [place] [address] Phylicia Calvin MA 02/10/2025 Documentation Only [facility] [address] [place] [address] Phylicia Calvin MA 01/25/2025 1:30 PM EDT Office [facility] [address] [place] [address] Raoul Juan MD Hyponatremia (Primary Dx) from Last 3 Months Family History Medical [...] Office Visit [facility] [address] [place] [phone] Raoul Juan MD [address] [place] [phone] Health Maintenance Due Date Last Done Comments Influenza Vaccine (#1) 2025 4, 04/05/2023, 03/05/2022, Additional history exists Pneumococcal Vaccine: 50+ Years Completed 04/18/2015, 12/27/2011 Hepatitis B Vaccine Aged Out No longe r eligible based on patient's age to complete this topic Insurance [facility] Care Teams Supreme [address] Justice Relationship Specialty Start Date End Date Christopher Reyes PA-C [address] [place] [address] PCP - General Physician Wet Process Assistant Head Miller 09/28/24
--- OUTSIDE RECORDS SUMMARY | 2025-04-07 14:27 | XMS_ITS | Encounter Summary ---
Author Organization [facility] Address [address] [place] [address] Care Team Providers Care Shook Splicer Name Role Phone Christopher Reyes Primary Care Provider [phone] Reason for Referral * Consultation (Routine) - Closed Specialty Diagnoses / Procedures Referred By Contbarry t Referred To Contact Ophthalmology Diagnoses Primary open-angle glaucoma, bilateral, moderate stage Christopher Reyes PA [address] [place] [address] Phone: tel: fax: Jennifer Degroot MD [address] [place] [address] Phone: tel: fax: Referral ID Status Reason Start Date Expiration Date V isits Requested Visits Authorized [id number] Closed Specialty Services Required 03/16/2025 03/16/2026 1 1 Encounter Details Date Type Department Care Team (Late st Contact Info) Description 03/16/2025 Telephone Adult Medicine [address] [address] Christopher Reyes PA [address] [place] [address] Social History Tobacco Use Types Packs/Day Years Used Date Smoking Tobacco: Never Smokeless Tobacco: Never Alcohol Use Standard Drinks/Week Comments Yes 0 [...] care for your loved ones. For example, teacher early childhood development or elderly care for an older adult? [...] on file documented as of this encounter Progress Notes * Beverlymukul Bernard - 03/16/2025 10:01 AM EDT Copied from [facility] #[id number]. Topic: Referral - Request >> Mar 16, 2025 10:00 AM Beverly Deleon wrote: MATTHEW MARTINEZ called requesting a ophthalmology referral. What insurance does the patient have today? Payor: [email or web address] Referrals cannot be processed if the insurance is not accurate. If the insurance listed above is NO BILLING INFORMATION FOUND FOR THIS ENCOUNTER then the patients correct insurance must be obtainedand registered in [place] or their referral can not be processed. Name of person calling to request this referral? Matthew Referred To Provider (Include first and last name): Jennifer Degroot NPI (if known): [id number] Order/Specialty requested ophthalmology Chief Complaint (Note: This is not a body part or a procedure): H40.2416 Has the patient seen provider for this problem/Dx before? yes Referred To Provider Address: [address] [place] [address] [facility] [address] Referred To Provider Referred To Provider Does patient have an appointment scheduled?: yes If yes, what is the date of the appointment?: 05/05/2025 Is this a retro request? no Number of visits requested: 6 Is this appointment related to: MVA or worker compensation? no documented in this encounter Plan of Treatment Upcoming Encounters Date Type Department Care Team (Late st Contact Info) Description 04/11/2025 8:30 AM EDT Office Visit Adult Medicine [address] [phone] Xiao Campos PA [address] [place], [place] 05/26/2025 10:00 AM EST Office Visit [facility] Hematology Oncology [address] [place] [address] Darleen To MD [address] [place] [address] Scheduled Referrals Name Type Priority Associated Diagnoses Order Schedule Ambulatory referral to Ophthalmology Outpatient Referral Routine Primary open-angle glaucoma, bilateral, moderate stage 1 Occurrences starting 03/16/2025 until 03/16/2026 documented as of this encounter Visit Diagnoses Diagnosis Primary open-angle glaucoma, bilateral, moderate stage- Primary documented in this encounter Additional Health Concerns Assessment Noted Time PHQ-9 Depression Total Score: 0 11/16/19 7:43 AM EDT A fall risk assessment has been complete d for the patient 11/15/2024 7:43 AM EDT documented as of this encounter Care Teams Shook Splicer Relationship Specialty Start Date End Date Christopher Reyes PA [address] [place] [address] PCP - General Internal Medicine 06/17/24 documented as of this encounter
--- OUTSIDE RECORDS SUMMARY | 2025-04-07 14:27 | XMS_ITS ---
Author Name [facility] Organization Unknown Care Team Organization Name Specialty Phone Email Start Date End Da te [facility] Christopher Reyes Primary Care 04/23/2022
--- OUTSIDE RECORDS SUMMARY | 2025-04-07 14:27 | XMS_ITS | Encounter Summary ---
Author Organization [facility] Address [address] [place] [address] Phone Care Team Providers Care Delicatessen Manager Name Role Phone Christopher Reyes PA-C Primary Care Provider Encounter Details Date Type Department Care Team (Late Contact Info) Description 11/19/2021 Documentation Only [facility] [address] [place] [address] [place], [place] [address] [place] [address] Social History Tobacco Use Types [...] Visit [facility] [address] [place] [phone] Raoul Juan MD [address] [facility] [place] [address] documented as of this encounter Visit Diagnoses Not on filedocumented in this encounter Care Teams Delicatessen Manager Relationship Specialty Start Date End Date Christopher Reyes PA-C [address] [place] [address] PCP - General Physician Director Of Strategic Communications 09/28/24 documented as of this encounter
--- OUTSIDE RECORDS SUMMARY | 2025-04-07 14:27 | XMS_ITS | Encounter Summary ---
Author Organization [facility] Address [address] [place] [address] Phone Care Team Providers Care Labor Relations Or Personnel Negotiator Name Role Phone Christopher Reyes PA-C Primary Care Provider Encounter Details Date Type Department Care Team (Late Contact Info) Description 02/16/2025 Documentation Only [facility] [address] [place] [phone] Phylicia Calvin [place] [address] [place] [phone] Social History Tobacco Use Types Packs/Day Years [...] Visit [facility] [address] [place] [phone] Raoul Juan MD [address] [facility] [place] [address] documented as of this encounter Visit Diagnoses Not on filedocumented in this encounter Care Teams Labor Relations Or Personnel Negotiator Relationship Specialty Start Date End Date Christopher Reyes PA-C [address] [place] [address] PCP - General Physician Senior Clinical Data Manager 09/28/24 documented as of this encounter
== END 2025-04-07 11:20 | disposition home or self-care (01) ==
LOC: HO.HMGCLDS 11:19
PROVIDERS: PCP Physician Assistant Medical; Visit Provider Urology
DX: Z12.5 Encounter for screening for malignant neoplasm of prostate (principal); C61 Malignant neoplasm of prostate; C77.2 Secondary and unspecified malignant neoplasm of intra-abdominal lymph nodes
CPT/HCPCS: 36415; 84153; 84403

== ENCOUNTER → 2025-04-13 14:17 | Outpatient (AMB) | payer BC, SELFPAY ==
--- OUTSIDE RECORDS SUMMARY | 2025-04-11 08:30 | XMS_ITS | Encounter Summary ---
Author Organization [facility] [place] [address] Care Team Providers Care Electrical Test Technician Name Role Phone Christopher Reyes Primary Care Provider [phone] Reason for Visit * Reason Comments Follow-up 2 month htn f/u Encounter Details Date Type Department Care Team (Late st Contact Info) Description 04/11/2025 8:30 AM EDT Office Visit Adult Medicine [facility] [address] [place] [phone] Xiao Campos PA [address] [place] [phone] Essential hypertension (Primary Dx); Hypo-osmolality and hyponatremia Social History Tobacco Use Types Packs/Day Years [...] for your loved ones. For example, children's choir director or elderly care for an older adult? [...] on file documented as of this encounter Last Filed Vital Signs Vital Sign Reading Time Taken Comments Blood Pressure 120/84 04/11/2025 8:47 AM EDT Pulse 81 04/11/2025 8:30 AM EDT Temperature 35.9 C (96.7 F) 04/11/2025 8:30 AM EDT Respiratory Rate 13 04/11/2025 8:30 AM EDT Oxygen Saturation 98% 04/11/2025 8:30 AM EDT Inhaled Oxygen Concentration - - Weight 79.4 kg (175 lb) 04/11/2025 8:30 AM EDT Height 182.9 cm (6') 04/11/2025 8:30 AM EDT Body Mass Index 23.73 04/11/2025 8:30 AM EDT documented in this encounter Progress Notes * KIAN Ny - 04/11/2025 8:30 AM EDT CHIEF COMPLAINT: Follow-up (2 month htn f/u) IDENTIFIER: Uzair Barrera is a 79 y.o. old male. HPI: Patient is a 79-year-old male who presents to the office today for ongoing evaluation of hypertension. Blood pressure was controlled at the last office visit at 128/82. He follows nephrology for hyponatremia and takes sodium tablet daily. He remains on carvedilol, lisinopril and spironolactone. He has not been checking blood pressures at home lately. He drinks 2-3 beers daily. He took his BP medications just prior to the appointment. ROS: GENERAL: No malaise, significant weight loss or fever HEENT: No changes in vision RESPIRATORY: No cough, wheezing or shortness of breath CARDIOVASCULAR: No chest pain, leg swelling or palpitations NEURO: No persistent headache PAST MEDICAL HISTORY: Patient Active Problem List Diagnosis Date Noted Gait instability 09/21/2024 Hypertension 03/24/2024 Coronary artery calcification 10/20/2023 Murmur, cardiac 10/20/2023 Ascending aorta dilatation ([facility] V24) 04/21/2023 Anemia associated with malignant neoplastic disease ([facility] V24, [facility] V28) 03/21/2022 Anxiety 03/20/2022 Deep vein thrombosis (DVT) ([facility] V24, [facility] V28) 03/20/2022 Pulmonary embolism ([facility] V24, [facility] V28) 03/20/2022 Hilar lymphadenopathy 03/04/2022 Alcohol abuse 01/08/2021 Mixed hyperlipidemia 01/14/2019 Prostate cancer metastatic to multiple sites ([facility] V24, [facility] V28) 01/14/2019 Weight loss 01/14/2019 Dupuytren contracture 09/11/2017 Elevated PSA 10/12/2014 Gastroesophageal reflux disease 03/09/2013 Erectile dysfunction 05/01/2009 Amputation finger 10/11/2008 Hereditary and idiopathic peripheral neuropathy 09/22/2006 Acute pyelonephritis 06/01/2005 Essential hypertension 05/21/2005 Surgical History[1] SOCIAL HISTORY: Social History Tobacco Use Smoking status: Never Smokeless tobacco: Never Substance Use Topics Alcohol use: Yes Comment: 2-3 beers daily FAMILY HISTORY: Family History[2] MEDICATIONS DISCONTINUED/REORDERED: There are no discontinued medications. ACTIVE MEDICATIONS: Medications Taking[3] ALLERGIES: Allergies[4] PHYSICAL EXAM: Blood pressure 120/84, pulse 81, temperature 35.9 ??C (96.7 ??F), temperature source Temporal, resp. rate 13, height 1.829 m (72 ), weight 79.4 kg (175 lb), SpO2 98%. Body mass index is 23.73 kg/m??.BMI is 18.5 to 24.9 (within the normal range) and will be followed APPEARANCE: Alert and in no acute distress HEART: RRR with normal S1 and S2, no murmurs, no gallops LUNG: Clear to auscultation EXTREMITIES: No edema NEURO: Awake, alert and oriented x 3 LABS: Lab Results Component Value Date NA 128 (L) 02/24/2025 K 4.9 02/24/2025 CL 98 02/24/2025 CO2 23 02/24/2025 GLUCOSE 92 02/24/2025 BUN 13 02/24/2025 CREATININE 0.79 02/24/2025 CALCIUM 9.2 02/24/2025 PROT 6.9 02/24/2025 ALBUMIN 4.1 02/24/2025 BILITOT 0.6 02/24/2025 AST 21 02/24/2025 ALT 20 02/24/2025 ALKPHOS 46 02/24/2025 EGFR 91 02/24/2025 IMAGING: None IMPRESSION/PLAN: 1. Essential hypertension Basic metabolic panel 2. Hypo-osmolality and hyponatremia Basic metabolic panel Medication and lab orders: Orders Placed This Encounter Procedures Basic metabolic panel Other orders: None Blood pressure on my manual check at the end of the visit with his sweater taken off was controlledat 120/84. Continue on spironolactone, carvedilol and lisinopril daily. He did not tolerate amlodipine previously, had leg swelling. He does have hyponatremia 128. He is currently drinking 2-3 beers daily which I encouraged him to decrease. Recheck BMP today. Continue on sodium tablet. I have applied the code G2211 to this patient???s visit as the primary care provider dealing with (see above issues) leading to the extensive work up, and management associated with the medical care of this patient. I have reviewed all information as it pertains to the management of this patient for final approval. Advised the patient to call me if any problems. Patient understands the plan. Patient is in agreement with the plan. Today's documentation was made using voice recognition software.This note may contain grammatical errors secondary to this software. Xiao Campos PA-C [1] Past Surgical History: Procedure Laterality Date HERNIA REPAIR Left 12/30/2019 PROCEDURE: HISTORICAL HERNIA REPAIR/ING OTHER SURGICAL HISTORY PROCEDURE: HISTORY OTHER; COMMENT: traumatic amp rt 5th finger OTHER SURGICAL HISTORY PROCEDURE: HISTORICAL SQUAMOUS CELL CA; COMMENT: SCC 04/29 right ear OTHER SURGICAL HISTORY PROCEDURE: HI BIOPSY THYROID PERCUTANEOUS CORE NEEDLE; COMMENT: negative for malignant cells OTHER SURGICAL HISTORY PROCEDURE: LUNG BIOPSY THROUGH CHEST WALL; COMMENT: negative for malignant cells OTHER SURGICAL HISTORY Left 10/29/2018 PROCEDURE: EXCISION BENIGN LESION>1.25C; COMMENT: left foot OTHER SURGICAL HISTORY 08/29/2023 PROCEDURE: ENDOBRONCHOSCOPIC US (EBUS) DURING DX/TX INTERVENTION(S); COMMENT: biopsy lymph nodes dr. maguire [2] Family History Problem Relation Name Age of Onset Other (Other: at 93) Mother during her lifetime healthy Other (Other: at 70) Father brain tumor, but no details Coronary artery disease Father No Known Problems Sister Stroke Brother at 60 [3] Outpatient Medications Marked as Taking for the 04/11/25 encounter (Office Visit) with KIAN Ny Medication Sig Dispense Refill calcium phosphate/vitamin D2 (CALCIUM-VITAMIN D2 ORAL) Calcium Carb- Cholecalciferol 1000-20 MG-MCG carvediloL (COREG) 25 mg tablet TAKE 1 TABLET BY MOUTH TWICE A DAY WITH FOOD 180 tablet 1 Eliquis 2.5 mg tablet TAKE 1 TABLET BY MOUTH TWICE A DAY 60 tablet 5 enzalutamide (XTANDI) 80 mg tablet Take 1 tablet (80 mg total) by mouth 1 (one) time each day finasteride (PROSCAR) 5 mg tablet Every Evening lisinopril (PRINIVIL,ZESTRIL) 40 mg tablet Take 1 tablet (40 mg total) by mouth 1 (one) time each day. 90 tablet 1 omeprazole (PriLOSEC) [address] capsule Take 1 capsule (20 mg total) by mouth daily. oxyBUTYnin XL (DITROPAN-XL) 5 mg 24 hr tablet Take 5 mg by mouth daily. rosuvastatin (CRESTOR) 10 mg tablet TAKE 1 TABLET BY MOUTH EVERY DAY 90 tablet 0 sodium chloride 1,000 mg soluble tablet TAKE 1 TABLET (1 G TOTAL) BY MOUTH 1 (ONE) TIME EACH DAY. 90 tablet 1 spironolactone (Aldactone) 50 mg tablet Take 1 tablet (50 mg total) by mouth 1 (one) time each day.30 each 5 tadalafiL (CIALIS) 20 mg tablet Take 1 tablet (20 mg total) by mouth daily as needed for erectile dysfunction. tamsulosin (FLOMAX) 0.4 mg 24 hr capsule Take 1 capsule (0.4 mg total) by mouth daily. [4] Allergies Allergen Reactions Levofloxacin Other and Seizures Celecoxib Swelling and Itching Levothyroxine Fatigue Prednisone Flushing Face turned red - no trouble breathing or lip swelling. documented in this encounter Plan of Treatment Upcoming Encounters Date Type Department Care Team (Late st Contact Info) Description 05/26/2025 10:00 AM EST Office Visit [facility] Hematology Oncology [address] [place] [phone] Darleen To MD [address] [place] [phone] 07/12/2025 8:30 AM EST Office Visit Adult Medicine [facility] [address] [place] [phone] Xiao Campos PA [address] [place] [phone] documented as of this encounter Visit Diagnoses Diagnosis Essential hypertension- Primary Unspecified essential hypertension Hypo-osmolality and hyponatremia documented in this encounter Orders Lab Orders Without Results Count Last Ordered D ate First Ordered Date BASIC METABOLIC PANEL 1 04/11/2025 documented in this encounter Additional Health Concerns Assessment Noted Time PHQ-9 Depression Total Score: 0 11/16/19 7:43 AM EDT A fall risk assessment has been complete d for the patient 11/15/2024 7:43 AM EDT documented as of this encounter Care Teams Electrical Test Technician Relationship Specialty Start Date End Date Christopher Reyes PA [address] [place] [address] PCP - General Internal Medicine 06/17/24 documented as of this encounter
--- NOTE | 2025-04-13 14:22 | MHC.OFFVIS ---
Intake Visit Reasons: Abn MRI head/Unstable gait/ seen 2021 Allergies celecoxib (From CELEBREX) Allergy (Severe, Verified 10/26/24 10:26) HYPOTENSION HPI Comments Details: 79 years old man with past medical history of hypertension, metastatic prostate cancer, pulmonary embolism treated with anticoagulation, who was here stating that he recently had an MRI of brain and that is why he was sent here. He did not know the reason for the MRI. MRI was done at [facility] and I would noted that it was done in September of this year. It revealed few punctate areas of restricted diffusion and frontal lobes. It also revealed quite significant chronic vascular disease or multiple medium size ischemic infarcts. Underlying, there was diffuse at least moderate or more cerebral atrophy. This MRI was probably done for investigation of his difficulty walking. He also had an EMG nerve conduction study in 2021 that revealed rukkhxdo-el-rpmrju axonal sensory motor peripheral neuropathy. He continues to drink alcohol and was drinking at least 2 drinks today. He was not diabetic he was taking Xtandi for cancer. 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 He recently fell in his back was hurting. Physical Exam Neuro Other: Mental Status: Alert and oriented to person, place, and time. Normal attention. Normal spontaneous speech, fluency, and comprehension. Cranial Nerves: CN II: Visual kee full to confrontation, visual acuity intact. CN III, IV, : Pupils equal, round, reactive to light and accommodation. Extraocular movements are normal. CN V: Facial sensation is normal. CN VII: Facial movements symmetrical. CN VIII: Hearing intact to bedside conversation is normal. CN IX, X: Palate elevates symmetrically. CN XI: Shoulder shrug and head turn symmetrical. CN XII: Tongue midline without atrophy or fasciculations. Motor: Bulk and tone normal in all extremities. No significant muscle weakness in arms and legs. No drift. Reflexes: Deep tendon reflexes are trace to 1+. Coordination: Spfiey-zn-qgyc and wioh-ax-obwg testing normal. No dysmetria. Gait and Station: Moderately wide-based cautious gait. Extrapyramidal: Full facial expressions and blinking. No rigidity. Movements are appropriate with no tremor or abnormality. Speech: Normal; no dysarthria or tremor. Assessment & Plan Assessment & Plan (1) Multifactorial gait disorder: Comment: MRI brain WO at 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 10/18/21. CT brain WO at [facility] in May 2021: mild diff atrophy, MVD MRI brain WO at [facility] in May 2021: atrophy and mod severe MVD. Code(s): R26.89 - Other abnormalities of gait and mobility Category: Medical (2) Multifactorial dementia: Code(s): F03.90 - Unspecified dementia, unspecified severity, without behavioral disturbance, psychotic disturbance, mood disturbance, and anxiety Category: Medical Plan Impression and recommendations: 79 years old man with multifactorial gait disorder. He has significant diffuse cerebral atrophy and axonal peripheral neuropathy with history of regular alcohol use. There likely is a relationship. Addition, he suffered from chronic hypertension and has ohqrrpjx-dj-dmulht small to medium-size numerous ischemic infarcts further impacting his physical and cognitive ability especially walking. Though he was hesitant to except that there was any cognitive problem with a him. There was no specific treatment for this condition except prevention of further injury, common sense measures to avoid falling, which he recently did, and regular leg and balancing exercises. He should tried to use a cane on regular basis. He is advised to not drink alcohol at all. Coding Level of Care Code New Pt Level 4 (55167) Diagnoses Multifactorial gait disorder R26.89 Multifactorial dementia F03.90
--- OUTSIDE RECORDS SUMMARY | 2025-04-13 18:28 | XMS_ITS | Clinical Summary ---
Author Organization [facility], Address [address] [place] [address] [place] [address] Phone Care Team Providers Care Laundromat Worker Name Role Phone Christopher Reyes PA-C Primary [...] Only [facility] [address] [place] [address] Phylicia Calvin MA 02/10/2025 Documentation Only [facility] [address] [place] [address] Phylicia Calvin MA 01/25/2025 1:30 PM EDT Office Visit [facility] [address] [place] [address] Raoul Juan MD Hyponatremia (Primary Dx) from [...] Office Visit [facility] [address] [place] [phone] Raoul Juan MD [address] [place] [phone] Health Maintenance Due Date Last Done Comments Influenza Vaccine (#1) 2025 4, 04/05/2023, 03/05/2022, Additional history exists Pneumococcal Vaccine: 50+ Years Completed 04/18/2015, 12/27/2011 Hepatitis B Vaccine Aged Out No longe r eligible based on patient's age to complete this topic Insurance [facility] Care Teams Laundromat Worker Relationship Specialty Start Date End Date Christopher Reyes PA-C [address] [place] [address] PCP - General Physician Assistant Spa Manager 09/28/24
--- OUTSIDE RECORDS SUMMARY | 2025-04-13 18:28 | XMS_ITS | Encounter Summary ---
Author Organization [facility] Address [address] [place] [address] Phone Care Team Providers Care Sales Service Professional Name Role Phone Christopher Reyes PA-C Primary Care Provider Encounter Details Date Type Department Care Team (Late st Contact Info) Description 02/09/2024 Documentation Only [facility] [address] [facility] [place] [phone] Griselda Heck Social History Tobacco Use Types [...] Visit [facility] [address] [place] [phone] Raoul Juan MD [address] [place] [address] [place] [phone] documented as of this encounter Visit Diagnoses Not on filedocumented in this encounter Care Teams Sales Service Professional Relationship Specialty Start Date End Date Christopher Reyes PA-C [address] [place] [address] PCP - General Physician Sales Promotion Representative 09/28/24 documented as of this encounter
--- OUTSIDE RECORDS SUMMARY | 2025-04-13 18:28 | XMS_ITS | Encounter Summary ---
Author Organization [facility] Address [address] [place] [address] Phone Care Team Providers Care Xm1 Tank Driver Name Role Phone Christopher Reyes PA-C Primary Care Provider Encounter Details Date Type Department Care Team (Late st Contact Info) Description 05/20/2022 Documentation Only [facility] [address] [place] [phone] Rika Hahn PA Social History Tobacco Use [...] Visit [facility] [address] [phone] Raoul Juan MD [address] [place] [phone] documented as of this encounter Visit Diagnoses Not on filedocumented in this encounter Care Teams Xm1 Tank Driver Relationship Specialty Start Date End Date Christopher Reyes PA-C [address] [place] [phone] PCP - General Physician Buttoner 09/28/24 documented as of this encounter
--- OUTSIDE RECORDS SUMMARY | 2025-04-13 18:28 | XMS_ITS | Clinical Summary ---
Author Organization [facility] Address [address] [place] [phone] Phone Care Team Providers Care Associate Professor Of Library Media Name Role Phone Christopher Reyes Primary Care Provider [phone] Allergies Active Allergy Reactions Criticality Noted Date [...] each day. 30 each 5 5 Active sodium chloride 1,000 mg soluble tablet TAKE 1 TABLET (1 G TOTAL) BY MOUTH 1 (ONE) TIME EACH DAY. 90 tablet 1 5 Active carvediloL (COREG) 25 mg tablet TAKE 1 TABLET BY MOUTH TWICE A DAY WITH FOOD 180 tablet 1 5 Active Eliquis 2.5 mg tablet TAKE 1 TABLET BY MOUTH TWICE A DAY 60 tablet 5 5 Active rosuvastatin (CRESTOR) 10 mg tablet TAKE 1 TABLET BY MOUTH EVERY DAY 90 tablet 5 Active Eliquis 2.5 mg tablet TAKE 1 TABLET BY MOUTH TWICE A DAY 60 tablet 2 5 025 Discontinued rosuvastatin (CRESTOR) 10 mg tablet TAKE 1 TABLET BY MOUTH EVERY DAY 90 tablet 5 025 Discontinued Active Problems Problem Noted [...] recent chest CT scan was performed at [facility] on December 05, 2023 for which [...] abuse 01/08/2021 Overview (03/24/2024): Hospitalized 12/2020 at [facility] d/t withdrawal Mixed hyperlipidemia 01/14/2019 Prostate cancer metastatic t o multiple sites ([facility] V24, [facility] V28) 01/14/2019 Cancer Staging:Clinical stage from 07/09/2023:Stage [...] Encounters Date Type Department Care Team Description 04/12/2025 Results Follow-Up Adult Medicine [address] [phone] Xiao Campos PA 04/11/2025 8:30 AM EDT Office Visit Adult Medicine [address] [phone] Xiao Campos PA Essential hypertension (Primary Dx); Hypo-osmolality and hyponatremia 03/22/2025 3:00 PM EDT Office Visit Adult [address] [phone] Sofie Gurera PA Essential hypertension (Primary Dx); Hypo-osmolality and hyponatremia; Need for prophylactic vaccination and inoculation against influenza 03/16/2025 Telephone Adult Medicine [address] [phone] Christopher Reyes PA 03/03/2025 9:30 AM EDT Office Visit [address] [phone] Sofie Guerra PA Essential hypertension (Primary Dx); Excessive drinking alcohol; Hyponatremia 02/28/[address] [phone] Christopher Reyes PA 02/24/2025 10:00 AM EDT Office Visit [facility] Hematology Oncology [address] [place] [phone] Darleen To MD Prostate cancer metastatic to multiple sites (CMS/HCC V24, CMS/HCC V28) (Primary Dx); Anemia associated with malignant neoplastic disease (CMS/HCC V24, CMS/HCC V28); Gait instability; Elevated PSA 02/08/2025 Telephone Adult Medicine [address] [phone] Christopher Reyes PA 01/12/2025 Telephone [facility] Hematology Oncology [address] [place] [phone] Darleen To MD from Last 3 Months [...] 04/29 right ear OTHER SURGICAL HISTORY PROCEDURE: ID BIOPSY THYROID PERCUTANEOUS CORE NEEDLE; COMMENT: negative [...] DX:Alcohol abuse ; COMMENT: Hospitalized 12/2020 at [facility] d/t withdrawal Family History Medical History [...] do you feel lonely or isolated from ose around you? Never 11/15/2024 Food Risk [...] care for your loved ones. For example, exceptional children's teacher or elderly care for an older adult? [...] Mass Index 23.73 04/11/2025 8:30 AM EDT Plan of Treatment Upcoming Encounters Date Type Department Care Team (Late st Contact Info) Description 05/26/2025 10:00 AM EST Office Visit [facility] Hematology Oncology [address] [place] [phone] Darleen To MD [address] [place] [address] 07/12/2025 8:30 AM EST Office Visit Adult Medicine [facility] [address] [place] [phone] Xiao Campos PA [address] [place] [phone] Health Maintenance Due Date Last Done Comments Hepatitis A Vaccines (1 of 2 - Risk 2-dose series) 1964 RSV Immunization Adult Patients (1 - 1-dose 75+ series) 2021 COVID-19 Vaccine ( season) 2025 10/19/2021, 03/13/2021, 09/10/2020, Additional history exists Falls Risk Assessment 11/15/2025 11/15/2024, 025 Social Influencers of Health Screening 11/15/2025 11/15/2024 Hypertension/CHF/CAD Annual BMP Blood Test 04/12/2026 04/12/2025, 02/24/2025, 11/23/2024, Additional history exists Cholesterol Screening (Lipid Panel) 04/12/2030 04/12/2025, 11/24/2023, 11/24/2023 DTaP,Tdap,and Td Vaccines (4 - [...] Diagnosis Comments CBC WITH AUTO DIFFERENTIAL Routine 04/12/2025 1:28 PM EDT Anemia associated with malignant neoplastic disease (CMS/HCC V24, CMS/HCC V28) Essential hypertension Anxiety Mixed hyperlipidemia Pulmonary embolism, other, unspecified chronicity, unspecified whether acute cor pulmonale present (CMS/HCC V24, CMS/HCC V28) Deep vein thrombosis (DVT) of non-extremity vein, unspecified chronicity Gastroesophageal reflux disease without esophagitis CBC AND DIFFERENTIAL Routine 04/12/2025 1:28 PM EDT Anemia associated with malignant neoplastic disease (CMS/HCC V24, CMS/HCC V28) Essential hypertension Anxiety Mixed hyperlipidemia Pulmonary embolism, other, unspecified chronicity, unspecified whether acute cor pulmonale present (CMS/HCC V24, CMS/HCC V28) Deep vein thrombosis (DVT) of non-extremity vein, unspecified chronicity Gastroesophageal reflux disease without esophagitis COMPREHENSIVE METABOLIC PANEL Routine 04/12/2025 1:28 PM EDT Anemia associated with malignant neoplastic disease (CMS/HCC V24, CMS/HCC V28) Essential hypertension Anxiety Mixed hyperlipidemia Pulmonary embolism, other, unspecified chronicity, unspecified whether acute cor pulmonale present (CMS/HCC V24, CMS/HCC V28) Deep vein thrombosis (DVT) of non-extremity vein, unspecified chronicity Gastroesophageal reflux disease without esophagitis LIPID PANEL WITH REFLEX TO DIRECT LDL Routine 04/12/2025 1:28 PM EDT Anemia associated with malignant neoplastic disease (CMS/HCC V24, CMS/HCC V28) Essential hypertension Anxiety Mixed hyperlipidemia Pulmonary embolism, other, unspecified chronicity, unspecified whether acute cor pulmonale present (CMS/HCC V24, CMS/HCC V28) Deep vein thrombosis (DVT) of non-extremity vein, unspecified chronicity Gastroesophageal reflux disease without esophagitis EXTERNAL CLINICAL LAB 04/07/2025 CBC WITH AUTO DIFFERENTIAL Routine 02/24/2025 10:43 AM EDT Prostate cancer metastatic to multiple sites (CMS/HCC V24, CMS/HCC V28) CBC AND DIFFERENTIAL Routine 02/24/2025 10:43 AM EDT Prostate cancer metastatic to multiple sites (CMS/HCC V24, CMS/HCC V28) COMPREHENSIVE METABOLIC PANEL Routine 02/24/2025 10:43 AM EDT Prostate cancer metastatic to multiple sites (CMS/HCC V24, CMS/HCC V28) PROSTATE SPECIFIC ANTIGEN DIAGNOSTIC Routine 02/24/2025 10:43 AM EDT Prostate cancer metastatic to multiple sites (CMS/HCC V24, CMS/HCC V28) HEPATITIS C SCREENING Routine 03/08/2013 from Last 3 Months or Most Recently Relevant to Health Maintenance Results * Lipid panel with reflex to direct LDL (04/12/2025 1:28 PM EDT) [facility] Cholesterol 166 0 - 200 mg/dL LAB CHEMISTRY METHOD 04/12/2025 4:49 PM EDT [facility] Triglycerides 140 0 - 150 mg/dL LAB CHEMISTRY METHOD 04/12/2025 4:49 PM EDT [facility] HDL 58 >=40 mg/dL LAB CHEMISTRY METHOD 04/12/2025 4:49 PM EDT [facility] LDL Calculated 80 0 - 100 mg/dL LAB CHEMISTRY METHOD 04/12/2025 4:49 PM EDT [facility] Comment:Estimated LDL Calcul ated using equation: Total cholesterol - HDL cholesterol - (Triglycerides/5) VLDL Cholesterol Brendon 28 mg/dL LAB CHEMISTRY METHOD 04/12/2025 4:49 PM EDT [facility] Non HDL Chol. (LDL+VLDL) 108 <145 mg/dL LAB CHEMISTRY METHOD 04/12/2025 4:49 PM EDT [facility] Chol/HDL Ratio 2.9 0.0 - 4.4 LAB CHEMISTRY METHOD 04/12/2025 4:49 PM EDT [facility] Blood Venous blood specimen / Unknown Venipuncture / Unknown 04/12/2025 1:28 PM EDT 04/12/2025 1:28 PM EDT us Christopher LANGSTON LAB BLOOD ORDERABLES Felicity cordero Result [facility] [address] [place] [address], * (ABNORMAL) CBC auto differential (04/12/2025 1:28 PM EDT) Only the most recent of2 resultswithin the time period is included. WBC 5.7 4.8 - 10.8 K/mcL LAB HEMETOLOGY METHOD 04/12/2025 4:30 PM EDT [facility] RBC 4.30(L) 4.50 - 5.50 M/mcL LAB HEMETOLOGY METHOD 04/12/2025 4:30 PM EDT [facility] Hemoglobin 14.1 13.5 - 17.5 g/dL LAB HEMETOLOGY METHOD 04/12/2025 4:30 PM EDT [facility] Hematocrit 41.0(L) 42.0 - 54.0 % LAB HEMETOLOGY METHOD 04/12/2025 4:30 PM EDT [facility] MCV 96.2 79.0 - 98.0 FL LAB HEMETOLOGY METHOD 04/12/2025 4:30 PM EDT [facility] MCH 33.1(H) 27.0 - 32.0 pcg LAB HEMETOLOGY METHOD 04/12/2025 4:30 PM EDT [facility] MCHC 34.4 32.0 - 37.0 g/dL LAB HEMETOLOGY METHOD 04/12/2025 4:30 PM EDT [facility] RDW 12.9 11.0 - 15.0 % LAB HEMETOLOGY METHOD 04/12/2025 4:30 PM EDT [facility] Platelets 210 130 - 400 K/mcL LAB HEMETOLOGY METHOD 04/12/2025 4:30 PM EDT [facility] MPV 10.5 7.0 - 11.0 FL LAB HEMETOLOGY METHOD 04/12/2025 4:30 PM EDT [facility] NRBC 0.0 <1.0 % LAB HEMETOLOGY METHOD 04/12/2025 4:30 PM EDT [facility] NRBC Absolute 0.00 <0.10 K/mcL LAB HEMETOLOGY METHOD 04/12/2025 4:30 PM EDT [facility] Neutrophils Relative 61.9 % LAB HEMETOLOGY METHOD 04/12/2025 4:30 PM EDT [facility] Lymphocytes Relative 21.2 % LAB HEMETOLOGY METHOD 04/12/2025 4:30 PM EDT [facility] Monocytes Relative 8.5 % LAB HEMETOLOGY METHOD 04/12/2025 4:30 PM EDT [facility] Eosinophils Relative 6.5 % LAB HEMETOLOGY METHOD 04/12/2025 4:30 PM EDT [facility] Basophils Relative 1.4 % LAB HEMETOLOGY METHOD 04/12/2025 4:30 PM EDT [facility] Immature Granulocytes Relative 0.5 % LAB HEMETOLOGY METHOD 04/12/2025 4:30 PM EDT [facility] Neutrophils Absolute 3.49 1.50 - 7.00 K/mcL LAB HEMETOLOGY METHOD 04/12/2025 4:30 PM EDT [facility] Lymphocytes Absolute 1.20 1.00 - 5.00 K/mcL LAB HEMETOLOGY METHOD 04/12/2025 4:30 PM EDT [facility] Monocytes Absolute 0.48 0.20 - 1.00 K/mcL LAB HEMETOLOGY METHOD 04/12/2025 4:30 PM EDT [facility] Eosinophils Absolute 0.37 0.00 - 0.50 K/mcL LAB HEMETOLOGY METHOD 04/12/2025 4:30 PM EDT [facility] Basophils Absolute 0.08 0.00 - 0.20 K/mcL LAB HEMETOLOGY METHOD 04/12/2025 4:30 PM EDT [facility] Immature Granulocytes Absolute 0.03 0.00 - 0.03 K/mcL LAB HEMETOLOGY METHOD 04/12/2025 4:30 PM EDT [facility] Blood Venous blood specimen / Unknown Venipuncture / Unknown 04/12/2025 1:28 PM EDT 04/12/2025 1:28 PM EDT us Christopher LANGSTON LAB BLOOD ORDERABLES Felicity cordero Result [facility] [address] [place] [address], * (ABNORMAL) Comprehensive metabolic panel (04/12/2025 1:28 PM EDT) Only the most recent of2 resultswithin the time period is included. Sodium 129(L) 133 - 145 mmol/L LAB CHEMISTRY METHOD 04/12/2025 4:49 PM [facility] Potassium 4.6 3.5 - 5.5 mmol/L LAB CHEMISTRY METHOD 04/12/2025 4:49 PM [facility] Chloride 97 96 - 110 mmol/L LAB CHEMISTRY METHOD 04/12/2025 4:49 PM [facility] CO2 27 21 - 32 mmol/L LAB CHEMISTRY METHOD 04/12/2025 4:49 PM [facility] Anion Gap 5 3 - 11 LAB CHEMISTRY METHOD 04/12/2025 4:49 PM [facility] Glucose 108(H) 70 - 100 mg/dL LAB CHEMISTRY METHOD 04/12/2025 4:49 PM [facility] BUN 13 5 - 25 mg/dL LAB CHEMISTRY METHOD 04/12/2025 4:49 PM [facility] Creatinine 0.98 0.70 - 1.30 mg/dL LAB CHEMISTRY METHOD 04/12/2025 4:49 PM [facility] eGFR 79 >=60 mL/min/1. 73m2 LAB CHEMISTRY METHOD 04/12/2025 4:49 PM [facility] Comment:Calculation based on the Chronic Kidney Disease Epidemiology Collaboration (CKD-EPI) equation refit without adjustment for race. BUN/Creatinine Ratio 13.3 LAB CHEMISTRY METHOD 04/12/2025 4:49 PM [facility] Calcium 9.1 8.5 - 10.5 mg/dL LAB CHEMISTRY METHOD 04/12/2025 4:49 PM [facility] AST (SGOT) 16 10 - 42 unit/L LAB CHEMISTRY METHOD 04/12/2025 4:49 PM [facility] ALT (SGPT) 25 10 - 60 unit/L LAB CHEMISTRY METHOD 04/12/2025 4:49 PM EDT [facility] Alkaline Phosphatase 52 42 - 121 unit/L LAB CHEMISTRY METHOD 04/12/2025 4:49 PM EDT [facility] Total Protein 7.1 6.0 - 8.0 g/dL LAB CHEMISTRY METHOD 04/12/2025 4:49 PM EDT [facility] Albumin 4.0 3.2 - 5.0 g/dL LAB CHEMISTRY METHOD 04/12/2025 4:49 PM EDT [facility] Total Bilirubin 0.6 0.0 - 1.4 mg/dL LAB CHEMISTRY METHOD 04/12/2025 4:49 PM EDT [facility] Blood Venous blood specimen / Unknown Venipuncture / Unknown 04/12/2025 1:28 PM EDT 04/12/2025 1:28 PM EDT Christopher LANGSTON LAB BLOOD ORDERABLES Felicity l Result [facility] [address] [place] [address], * External clinical lab (04/07/2025) Provider [facility] LAB BLOOD ORDERABLES Fin al Result * Prostate specific antigen diagnostic (02/24/2025 10:43 AM EDT) PSA 1.19 0.00 - 4.00 ng/mL LAB CHEMISTRY METHOD 02/24/2025 2:07 PM EDT [facility] Blood Venous blood specimen / Unknown Venipuncture / Unknown 02/24/2025 10:43 AM EDT 02/24/2025 11:24 AM EDT Narrative [facility] - 02/24/2025 2:07 PM EDT The Siemens Advia Enigmediaaur Chemiluminescent Immunoassay is used. Results obtained with different assay methods or kits cannot be used interchangeably. Results cannot be interpreted as absolute evidence of the presence or absence of malignant disease. Javierramselma To MD LAB BLOOD ORDERABLE S Final Result [facility] [address] [place] [address], [place] [phone] * Hepatitis C Screening (03/08/2013) [facility] Hepatitis C Screening abstracted Historical Provider HEALTH MAINTENANCE Final Result from Last 3 Months or Most Recently Relevant to Health Maintenance Insurance [facility] Care Teams Associate Professor Of Library Media Relationship Specialty Start Date End Date Christopher Reyes PA [address] [place] [address] PCP - General Internal Medicine 06/17/24
--- OUTSIDE RECORDS SUMMARY | 2025-04-13 18:28 | XMS_ITS | Encounter Summary ---
Author Organization [facility] Address [address] [place] [address] Phone Care Team Providers Care Cloth Measurer Machine Name Role Phone Christopher Reyes PA-C Primary Care Provider Encounter Details Date Type Department Care Team (Late st Contact Info) Description 03/21/2022 Documentation Only [facility] [address] [place] [phone] Rika Hahn PA Social History Tobacco Use [...] Visit [facility] [address] [place] [phone] Raoul Juan MD [address] [place] [place] [phone] documented as of this encounter Visit Diagnoses Not on filedocumented in this encounter Care Teams Cloth Measurer Machine Relationship Specialty Start Date End Date Christopher Reyes PA-C [address] [place] [phone] PCP - General Physician Family Practice Physician 09/28/24 documented as of this encounter
--- OUTSIDE RECORDS SUMMARY | 2025-04-13 18:28 | XMS_ITS | Patient Health Record ---
Author Organization [facility] Brannon reilly Hagan Address [address] [facility] [place] [address] Care Team Providers Care Conductor Yard Name Role Phone Christopher Lares Primary Care Provider Unav ailable Angelito Joy Unavailable [phone] Allergies Allergen (clinical drug ingredient) Drug/Non Drug Allergy documented on EMR Reaction Allergy Type Onset Date Status celecoxib Celebrex itchy Drug Allergy Active levothyroxine Levothyroxine sob/fainted Drug Allergy Active prednisone Prednisone trouble breathing Drug Allergy Active Reason For Referral No Information Medications Medication SIG (Take, Route, Frequency, Duration) Notes Start Date End Date Status Aspirin 81 MG 1 tablet Orally Once a day; Duration: 30 day(s) Active Bismuth 262 MG 2 tablets with meals and at bedtime Orally Four times a day; Duration: 30 day(s) Not-Taking dilTIAZem HCl ER Beads 180 MG 1 capsule Orally Once a day; Duration: 30 day(s) Active Flunisolide 25 MCG/ACT (0.025%) 2 sprays in each nostril Nasally Twice a day; Duration: 30 day(s) Not-Taking Tadalafil 20 MG 1 tablet Orally; Duration: 30 day(s) Active Albuterol Not-Taking Latanoprost 0.005 % 1 drop into affected eye in the evening Ophthalmic Once a day Active Shingrix 50 MCG/0.5ML as directed Intramuscular Not-Taking Lisinopril 40 MG 1 tablet Orally Once a day; Duration: 30 day(s) Active dilTIAZem HCl 120 MG as directed Orally Active Fluticasone Furoate 50 MCG/ACT 2 puffs Inhalation Once a day Not-Taking Finasteride 5 MG 1 tablet Orally Once a day; Duration: 30 day(s) Active Ondansetron 4 MG 1 tablet on the tong ue and allow to dissolve Orally Once a day; Duration: 30 day(s) Not-Taking oxyBUTYnin Chloride 5 MG 1 tablet Orally Twice a day; Duration: 30 day(s) Active Tamsulosin HCl 0.4 MG 1 capsule Orally O nce a day; Duration: 30 day(s) Active Lovastatin 40 MG 1 tablet with the ev ening meal Orally Once a day; Duration: 30 day(s) Active Immunizations Vaccine Route Administration [...] Insured Coverage Start Date Coverage End Date [facility] [employer] [employer] [address] [place] [address] [id number] Uzair Cook Self - patient is [...]
--- OUTSIDE RECORDS SUMMARY | 2025-04-13 18:28 | XMS_ITS | Encounter Summary ---
Author Organization [facility] [place] [address] Care Team Providers Care Stress Test Technician Name Role Phone Christopher Reyes Primary Care Provider [phone] Encounter Details Date Type Department Care Team (Late st Contact Info) Description 04/12/2025 Results Follow-Up Adult Medicine [facility] [address] [place], [place] [phone] Xiao Campos PA [address] [place], [place] Social History Tobacco Use Types Packs/Day Years [...] care for your loved ones. For example, maternal child nurse or elderly care for an older adult? [...] Description 05/26/2025 10:00 AM EST Office Visit [facility] Hematology Oncology [address] [place] [phone] Darleen To MD [address] [place] [phone] 07/12/2025 8:30 AM EST Office Visit Adult Medicine [facility] [address] [place] [address] Xiao Campos PA [address] [place] [address] documented as of this encounter Visit Diagnoses Not on filedocumented in this encounter Additional Health Concerns Assessment Noted Time PHQ-9 Depression Total Score: 0 11/16/19 7:43 AM EDT A fall risk assessment has been complete d for the patient 11/15/2024 7:43 AM EDT documented as of this encounter Care Teams Stress Test Technician Relationship Specialty Start Date End Date Christopher Reyes PA [address] [place] [address] PCP - General Internal Medicine 06/17/24 documented as of this encounter
--- OUTSIDE RECORDS SUMMARY | 2025-04-13 18:28 | XMS_ITS | Encounter Summary ---
Author Organization [facility] Address [address] [place] [address] Phone Care Team Providers Care Pool Attendant Name Role Phone Christopher Reyes PA-C Primary Care Provider Encounter Details Date Type Department Care Team (Late st Contact Info) Description 06/13/2022 Documentation Only [facility] [address] [place] [phone] Rika Hahn PA Social History Tobacco Use [...] Visit [facility] [address] [place] [phone] Raoul Juan MD [address] [place] [phone] documented as of this encounter Visit Diagnoses Not on filedocumented in this encounter Care Teams Pool Attendant Relationship Specialty Start Date End Date Christopher Reyes PA-C [address] [place] [phone] PCP - General Physician Pre Owned Sales Manager 09/28/24 documented as of this encounter
--- OUTSIDE RECORDS SUMMARY | 2025-04-13 18:28 | XMS_ITS | Encounter Summary ---
Author Organization [facility] Address [address] [place] [address] Phone Care Team Providers Care Bun Icer Name Role Phone Christopher Reyes PA-C Primary Care Provider Encounter Details Date Type Department Care Team (Late Contact Info) Description 11/19/2021 Documentation Only [facility] [address] [place] [address] [place] [place] [address] [place] [address] Social History Tobacco Use Types [...] Visit [facility] [address] [place] [phone] Raoul Juan MD [address] [place] [address] documented as of this encounter Visit Diagnoses Not on filedocumented in this encounter Care Teams Bun Icer Relationship Specialty Start Date End Date Christopher Reyes PA-C [address] [place] [address] PCP - General Physician Work Station Support Specialist 09/28/24 documented as of this encounter
--- OUTSIDE RECORDS SUMMARY | 2025-04-13 18:28 | XMS_ITS | Clinical Summary ---
Author Organization [facility] Address [address] [place] [address] Care Team Providers Care Campus Ambassador Name Role Phone Mike Brooks MD Primary Care Provider [phone] Allergies Active Allergy Reactions Criticality Noted Date [...] age to complete this topic Care Teams Campus Ambassador Relationship Specialty Start Date End Date Mike Brooks MD PCP - General Carton Liner 10/09/17
--- OUTSIDE RECORDS SUMMARY | 2025-04-13 18:28 | XMS_ITS | Encounter Summary ---
Author Organization [facility] Address [address] [place] [address] Care Team Providers Care Home And School Visitor Name Role Phone Christopher Reyes Primary Care Provider [phone] Reason for Referral * Consultation (Routine) - Closed Specialty Diagnoses / Procedures Referred By Contbarry t Referred To Contact Ophthalmology Diagnoses Primary open-angle glaucoma, bilateral, moderate stage Christopher Reyes PA [address] [place] [address] Phone: tel: fax: Jennifer Degroot MD [address] [place] [address] Phone: tel: fax: Referral ID Status Reason Start Date Expiration Date V isits Requested Visits Authorized [id number] Closed Specialty Services Required 03/16/2025 03/16/2026 1 1 Encounter Details Date Type Department Care Team (Late st Contact Info) Description 03/16/2025 Telephone Adult Medicine [address] [address] Christopher Reyes PA [address] [place] [address] Social History Tobacco Use Types [...] care for your loved ones. For example, child caregiver or elderly care for an older adult? [...] as of this encounter Progress Notes * Beverly Bernard - 03/16/2025 10:01 AM EDT Copied from [facility] #[id number]. Topic: Referral - Request >> Mar 16, 2025 10:00 AM Beverly Deleon wrote: MATTHEW MARTINEZ called requesting a ophthalmology referral. What insurance does the patient have today? Payor: @[email or web address] Referrals cannot be processed if the insurance is not accurate. If the insurance listed above is NO BILLING INFORMATION FOUND FOR THIS ENCOUNTER then the patients correct insurance must be obtainedand registered in [facility] or their referral can not be processed. Name of person calling to request this referral? Matthew Referred To Provider (Include first and last name): Jennifre Degroot NPI (if known): [id number] Order/Specialty requested ophthalmology Chief Complaint (Note: This is not a body part or a procedure): H40.9703 Has the patient seen provider for this problem/Dx before? yes Referred To Provider Address: [address] [place] [address] Referred To Provider Referred To Provider Does [...] Description 05/26/2025 10:00 AM EST Office Visit [facility] Hematology Oncology [address] [place] [phone] Darleen To MD [address] [place] [phone] 07/12/2025 8:30 AM EST Office Visit Adult Medicine [facility] [address] [place], [place] [phone] Xiao Campos PA [address] [place], [place] Scheduled Referrals Name Type Priority Associated Diagnoses [...] documented as of this encounter Care Teams Home And School Visitor Relationship Specialty Start Date End Date Christopher Reyes PA [address] [place] [address] PCP - General Internal Medicine 06/17/24 documented as of this encounter
--- OUTSIDE RECORDS SUMMARY | 2025-04-13 18:28 | XMS_ITS ---
Author Organization [facility] Address [address] [place] [address] Care Team Providers Care Business Trainer Name Role Phone Mike Brooks MD Primary Care Provider Active Problems Problem Noted Date Diagnosed Date [...] Date Treatment Medications Discontinue Reason Plan Provider [facility] LEUPROLIDE 22.5MG (ELIGARD) EVERY 3 MONTHS 03/25/2022 07/24/2023 leuprolide (ELIGARD) Therapy Complete Darleen Lanza MD Radiation Treatments * No radiation treatments are documented for this patient in [facility]. Treatments may have been administered in another system.
--- OUTSIDE RECORDS SUMMARY | 2025-04-13 18:28 | XMS_ITS | Encounter Summary ---
Author Organization [facility] Address [address] [place] [address] Phone Care Team Providers Care Boiler Erector Name Role Phone Christopher Reyes PA-C Primary Care Provider Encounter Details Date Type Department Care Team (Late Contact Info) Description 02/10/2025 Documentation Only [facility] [address] [place] [phone] Phylicia Calvin [place] [address] [place] [phone] Social History Tobacco Use Types Packs/Day Years [...] Visit [facility] [address] [place] [phone] Raoul Juan MD [address] [facility] [place] [address] documented as of this encounter Visit Diagnoses Not on filedocumented in this encounter Care Teams Boiler Erector Relationship Specialty Start Date End Date Christopher Reyes PA-C [address] [place] [address] PCP - General Physician Paradichlorobenzene Tender 09/28/24 documented as of this encounter
--- OUTSIDE RECORDS SUMMARY | 2025-04-13 18:28 | XMS_ITS | Encounter Summary ---
Author Organization [facility] Address [address] [place] [address] Phone Care Team Providers Care Bobbin Inspector Name Role Phone Christopher Reyes PA-C Primary Care Provider Encounter Details Date Type Department Care Team (Late Contact Info) Description 02/16/2025 Documentation Only [facility] [address] [place] [phone] Phylicia Calvin [place] [address] [place] [phone] Social History Tobacco Use Types Packs/Day Years [...] Visit [facility] [address] [place] [phone] Raoul Juan MD [address] [facility] [place] [address] documented as of this encounter Visit Diagnoses Not on filedocumented in this encounter Care Teams Bobbin Inspector Relationship Specialty Start Date End Date Christopher Reyes PA-C [address] [place] [address] PCP - General Physician Lending Manager 09/28/24 documented as of this encounter
== END ==
LOC: HO.HSM 14:18
PROVIDERS: PCP Physician Assistant Medical; Visit Provider Psychiatry & Neurology Neurology
DX: R26.89 Other abnormalities of gait and mobility (principal); F03.90 Unspecified dementia, unspecified severity, without behavioral disturbance, psychotic disturbance, mood disturbance, and anxiety
CPT/HCPCS: 99204

== ENCOUNTER 2025-04-29 09:16 | Outpatient (AMB) | payer BC, SELFPAY ==
--- NOTE | 2025-04-29 09:51 | A.OFFVIS_ITS ---
Intake Visit Reasons: 6m/PSA/Testo/PVR Intake Note: Patient is present for labs/PVR Urology Med: Oxybutynin, Tamsulosin, Finasteride, Enzalutamide Antibiotic Allergy: None Blood Thinner: Eliquis PVR: 39ml 04/07/25- PSA 2.42 Total Testo [address] [employer] Required: No Accompanied by: Self / Same As Patient Allergies celecoxib (From CELEBREX) Allergy (Severe, Verified 04/29/25 09:51) HYPOTENSION HPI Comments Details: Uzair is a pleasant male. He is a patient of Dr. Reyes. He is seen for the following urologic conditions - prostate cancer - metastatic - oncology Dr Mook Everett Minimal symptoms Adequate energy Continue interval surveillance Restarted Xtandi. Only tolerating 1 tab daily secondary to fatigue Otherwise feeling well Dr. Delvalle is following with imaging and changes to medications 04/09 2.4 T 560 11/07 PSA 1.7 T 772 - single agent antiandrogen 07/10 PSA 3.0 - Significant response - Continue enzalutamide 05/09 PSA 38 - Started enzalutamide a few weeks ago - Tolerating much better than abiraterone 04/08 PSA 40 Discussed rising PSA Prescription for enzalutamide placed Bone Scan - Nonspecific increased focal tracer activity at T10 vertebral body, of indeterminate etiology. Follow-up PSMA PET/CT scan and/or CT or MRI of the spine and the pelvis as appropriate may be considered for further clarification 12/07 PSA 14 Has PET-CT scan in January with Dr Delvalle Did discuss potentially trialing Enzalutamide See in 3 months with lab work Has seen Dr. Delvalle in oncology [facility] Stopped abiraterone since has weakness and instability of gait Does not tolerate GnRH secondary to increased anxiety Working with oncology to find secondary options for chemotherapy 08/09 8.0 PSMA - similar activity pattern with persistent hilar nodule, persistent abdominal nodule both less than 1 cm. New activity within prostate. Rise in PSA likely due to stopping abiraterone 04/07 P2.4 T 633 DEXA - osteopenia 01/05 PSA 1.2 T 630 11/05 - PSMA Scan - persistent hilar nodule activity less than previously Continues with bicalutamide and cycling abiraterone - PSA 0.5 Continue current therapy Prostate cancer metastatic 03/07 abiraterone reduced to 3 tabs daily - admitted to [facility] with DVT PSA 12/05 2.3, 01/04 4 - doubling time less than 6 months, 03/07 0.8 T 23, 07/08 2.9, 10/06 0.5 Imaging - 12/05 PSMA scan [facility] hilar node positive - 02/04 CT chest no change in apoorva status Did not tolerate prior GnRH injection - had anxiety with gynecomastia Therapeutic plan -01/04 initiate abiraterone for metastatic disease and assessment for targeted radiotherapy 09/01 PSA 1.1, 11/01 PSA 1.3, 04/03 0.9, 08/05 0.3, 12/03 0.3, 04/04 0.2, 12/04 0.1, 06/05 0.3, 12/05 2.3, 01/04 4, 07/08 2.9 T 386, Prostate cancer: Intermediate risk Lorie 3 + 4 external beam radiation short- term hormones 01/31 Prostate cancer was diagnosed 08/31 Dr Marvin. Diagnosis was reached by 08/31 , needle biopsy, PSA at diagnosis 8.3. The Moore grade is Lorie Unkown - , 3+4 = 7. TNM Classification of Malignant Tumours (TNM) T1c. The D'Laila (NCCN) risk category is Intermediate Risk (PSA 10-20, Gl 7, T2), Group 2. Initial therapy included Primary treatment , External beam radiation with short term hormonal ablation - [facility] 01/31 completed. 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 Prostate cancer Surgical History History of surgery Review of Systems Const Denies chills and Denies fever(s) Card Reports no additional complaints and Denies syncope Resp Denies cough GI Denies abdominal pain and Denies heartburn Reports as per HPI and Denies change in libido Neuro Denies syncope Psych Denies change in libido Endo Denies change in libido Physical Exam Const General: cooperative, healthy appearing, comfortable and no acute distress Orientation/consciousness: patient oriented x3 HEENT Face and sinus: Yes normal facial exam Mouth: moist mucous membranes Neck Neck: Yes normal visual inspection, Yes full ROM and Yes trachea midline Chest Chest palpation & inspection: normal inspection of the chest Resp Effort & Inspection: normal respiratory effort, able to speak in complete sentences and no respiratory distress GI Inspection: Yes normal to inspection Back/Spine/Pelvis Cervical Spine: normal cervical lordosis Thoracic/Lumbar Spine: thoracic and lumbar spine normal to inspection Skin General skin exam: no rashes or lesions noted Neuro General: patient oriented x3, gait normal, tone normal and moves all extremities Extrem General: Yes normal to inspection and Yes capillary refill normal Office Procedures Post Void Residual Post Residual Void Post Void Residual (PVR): 39 [id number] Void Residual by ultrasound Assessment & Plan Assessment & Plan (1) Prostate cancer metastatic to intraabdominal lymph node: Code(s): C61 - Malignant neoplasm of prostate; C77.2 - Secondary and unspecified malignant neoplasm of intra-abdominal lymph nodes Category: Medical Plan Six-month follow-up murmur Orders: Orders AMB Post Void Residual by ultrasound Today R39.15 - Urgency of urination Prostate Specific Antigen 6 Months C61 - Malignant neoplasm of prostate, C77.2 - Secondary and unspecified malignant neoplasm of intra-abdominal lymph nodes Patient Instructions: This note is constructed using voice recognition software. While every effort has been made to ensure accuracy rolling mill plugger errors may have been included. Imaging studies, laboratory and physical exam results were discussed and reviewed in detail. No major barriers to patient understanding were identified. An opportunity to ask questions regarding the treatment plan was provided. All questions were answered. The patient expressed understanding and agreement with the above treatment plan. The patient is aware they should contact our office by phone for worsening of their current condition or the appearance of new urologic symptoms. Compliance is encouraged with any medications and followup testing that is ordered. It is a privilege to participate in the urologic care of your patient. If you have any questions or concerns regarding treatment for the above conditions, or other urologic issues, please do not hesitate to contact me. The office telephone contact is [phone]. Sincerely, Dr Daniel Duenas MD, [facility] - Urology Compassionate Specialist Care for the Genitourinary System Coding Level of Care Code Est Pt Level 3 (70230) Complex EM visit Add On G2211 Diagnoses Prostate cancer metastatic to intraabdominal lymph node C61; C77.2 CPT Codes Post Residual Void - PVR CPT Code: 82874-Dprv Void Residual by ultrasound ([id number])
--- OUTSIDE RECORDS SUMMARY | 2025-04-29 10:01 | XMS_ITS | Clinical Summary ---
Author Organization [facility] Address [address] [place] [address] Care Team Providers Care Electronic Data Processing Auditor Name Role Phone Mike Brooks MD Primary Care Provider [phone] Allergies Active Allergy Reactions Criticality Noted Date [...] age to complete this topic Care Teams Electronic Data Processing Auditor Relationship Specialty Start Date End Date Mike Brooks MD PCP - General Sorority Mother 10/09/17
--- OUTSIDE RECORDS SUMMARY | 2025-04-29 10:01 | XMS_ITS | Patient Health Record ---
[facility] [place] Address [address] [place] [address] Care Team Providers Care Barnworker Groom Name Role Phone Christopher Lares Primary Care Provider Unav ailable Angelito Joy Unavailable [phone] Allergies Allergen (clinical drug ingredient) Drug/Non Drug [...] Insured Coverage Start Date Coverage End Date [facility] [address] [place] [address] [phone] [id number] Uzair Cook Self - patient is [...]
--- OUTSIDE RECORDS SUMMARY | 2025-04-29 10:01 | XMS_ITS | Encounter Summary ---
Author Organization [facility] Address [address] [place] [address] Phone Care Team Providers Care Hand Presser Name Role Phone Christopher Reyes PA-C Primary Care Provider Encounter Details Date Type Department Care Team (Late st Contact Info) Description 05/20/2022 Documentation Only [facility] [address] [facility] [place] [phone] Rika Hahn PA Social History Tobacco Use [...] Visit [facility] [address] [place] [phone] Raoul uJan MD [address] [facility] [place] [phone] documented as of this encounter Visit Diagnoses Not on filedocumented in this encounter Care Teams Hand Presser Relationship Specialty Start Date End Date Christopher Reyes PA-C [address] [place] [address] PCP - General Physician Machine Operator Hop Picker 09/28/24 documented as of this encounter
--- OUTSIDE RECORDS SUMMARY | 2025-04-29 10:01 | XMS_ITS | Encounter Summary ---
Author Organization [facility] Address [address] [place] [address] Phone Care Team Providers Care Residential Field Manager Name Role Phone Christopher Reyes PA-C Primary Care Provider Encounter Details Date Type Department Care Team (Late Contact Info) Description 02/10/2025 Documentation Only [facility] [address] [place] [phone] Phylicia Calvin [place] [address] [place] [phone] Social History Tobacco Use Types Packs/Day Years [...] Visit [facility] [address] [place] [phone] Raoul Juan MD [address] [facility] [place] [address] documented as of this encounter Visit Diagnoses Not on filedocumented in this encounter Care Teams Residential Field Manager Relationship Specialty Start Date End Date Christopher Reyes PA-C [address] [place] [address] PCP - General Physician Division Merchandise Manager 09/28/24 documented as of this encounter
--- OUTSIDE RECORDS SUMMARY | 2025-04-29 10:01 | XMS_ITS | Encounter Summary ---
Author Organization [facility] [place] [address] Care Team Providers Care Paraprofessional Education Assistant Name Role Phone Christopher Reyes Primary Care Provider [phone] Encounter Details Date Type Department Care Team (Late st Contact Info) Description 04/12/2025 Results Follow-Up Adult Medicine [facility] [address] [place], [place] [phone] Xiao Campos PA [address] [place], [place] Social History Tobacco Use Types Packs/Day [...] care for your loved ones. For example, childcare center director or elderly care for an older [...] [facility] Hematology Oncology [address] [place] [phone] Darleen To MD [address] [place] [phone] 07/12/2025 8:30 AM EST Office Visit Adult Medicine [facility] [address] [place] [address] Xiao Campos PA [address] [place] [address] documented as of this encounter Visit Diagnoses Not on filedocumented in this encounter Additional Health Concerns Assessment Noted Time PHQ-9 Depression Total Score: 0 11/16/19 7:43 AM EDT A fall risk assessment has been complete d for the patient 11/15/2024 7:43 AM EDT documented as of this encounter Care Teams Paraprofessional Education Assistant Relationship Specialty Start Date End Date Christopher Reyes PA [address] [place] [address] PCP - General Internal Medicine 06/17/24 documented as of this encounter
--- OUTSIDE RECORDS SUMMARY | 2025-04-29 10:01 | XMS_ITS | Clinical Summary ---
Author Organization [facility] Address [address] [place] [address] [place] [address] Phone Care Team Providers Care News Content Specialist Name Role Phone Christopher Reyes PA-C Primary [...] Only [facility] [address] [place] [address] Phylicia Calvin [place] 02/10/2025 Documentation Only [facility] [address] [place] [address] Phylicia Calvin [place] from Last 3 Months Family History Medical [...] Visit [facility] [address] [facility] [address] [place] [address] Raoul Juan MD [address] [place] [address] [place] [address] Health Maintenance Due Date Last Done Comments Influenza Vaccine (#1) 2025 4, 04/05/2023, 03/05/2022, Additional history exists Pneumococcal Vaccine: 50+ Years Completed 04/18/2015, 12/27/2011 Hepatitis B Vaccine Aged Out No longe r eligible based on patient's age to complete this topic Insurance [facility] Care Teams News Content Specialist Relationship Specialty Start Date End Date Christopher Reyes PA-C [address] [place] [address] PCP - General Physician Director Imaging 09/28/24
--- OUTSIDE RECORDS SUMMARY | 2025-04-29 10:01 | XMS_ITS | Encounter Summary ---
Author Organization [facility] Address [address] [place] [address] Phone Care Team Providers Care Casing Inspector Name Role Phone Christopher Reyes PA-C Primary Care Provider Encounter Details Date Type Department Care Team (Late Contact Info) Description 11/19/2021 Documentation Only [facility] [address] [place] [address] [place] [address] [place] [address] Social History Tobacco Use Types [...] [facility] [address] [facility] [address] Raoul Juan MD [address] [facility] [place] [address] documented as of this encounter Visit Diagnoses Not on filedocumented in this encounter Care Teams Casing Inspector Relationship Specialty Start Date End Date Christopher Reyes PA-C [address] [place] [address] PCP - General Physician Highballer 09/28/24 documented as of this encounter
--- OUTSIDE RECORDS SUMMARY | 2025-04-29 10:01 | XMS_ITS | Encounter Summary ---
Author Organization [facility] Address [address] [place] [address] Phone Care Team Providers Care Home Economist Consumer Service Name Role Phone Christopher Reyes PA-C Primary Care Provider Encounter Details Date Type Department Care Team (Late st Contact Info) Description 02/09/2024 Documentation Only [facility] [address] [facility] [place] [phone] Griselda Heck Social History Tobacco Use Types [...] Visit [facility] [address] [place] [address] Raoul Juan MD [address] [place] [address] [place] [phone] documented as of this encounter Visit Diagnoses Not on filedocumented in this encounter Care Teams Home Economist Consumer Service Relationship Specialty Start Date End Date Christopher Reyes PA-C [address] [place] [address] PCP - General Physician Mold Laminator 09/28/24 documented as of this encounter
--- OUTSIDE RECORDS SUMMARY | 2025-04-29 10:01 | XMS_ITS | Clinical Summary ---
Author Organization [facility] Address [address] [place] [phone] Phone Care Team Providers Care Physician Neonatology Name Role Phone Christopher Reyes Primary Care Provider [phone] Allergies Active Allergy Reactions Criticality Noted Date [...] MOUTH EVERY DAY 90 tablet 5 Active rosuvastatin (CRESTOR) 10 mg tablet [...] Prostate cancer metastatic t o multiple sites ([facility] V24, [facility] V28) 01/14/2019 Cancer Staging:Clinical stage from 07/09/2023:Stage [...] Department Care Team Description 04/12/2025 Results Follow-Up [address] [phone] Xiao Campos PA 04/11/2025 8:30 AM EDT Office Visit [address] [phone] Xiao Campos PA Essential hypertension (Primary Dx); Hypo-osmolality and hyponatremia 03/22/2025 3:00 PM EDT Office Visit Adult Medicine [address] [phone] Sofie Guerra PA Essential hypertension (Primary Dx); Hypo-osmolality and hyponatremia; Need for prophylactic vaccination and inoculation against influenza 03/16/2025 Telephone Adult Medicine [address] [phone] Christopher Reyes PA 03/03/2025 9:30 AM EDT Office Visit [address] [phone] Sofie Guerra PA Essential hypertension (Primary Dx); Excessive drinking alcohol; Hyponatremia 02/28/2025 Telephone Adult [address] [phone] Christopher Reyes PA 02/24/2025 10:00 AM EDT Office Visit [facility] Hematology Oncology [address] [place] [phone] Darleen To MD Prostate cancer metastatic to multiple sites (CMS/HCC V24, CMS/HCC V28) (Primary Dx); Anemia associated with malignant neoplastic disease (CMS/HCC V24, CMS/HCC V28); Gait instability; Elevated PSA 02/08/2025 Telephone Adult Medicine [address] [phone] Christopher Reyes PA from Last 3 Months Immunizations Immunization Administration Dates Next Due Influenza trivalent, 0.5mL ( Fluad) 65yo and older 03/22/2025,04/08/2024 Influenza trivalent, 0.5mL ( Fluzone High-dose) 65yo and older 04/05/2023,03/05/2022,03/22/2021,04/06,03/03/2019,02/24/2018,03/10/2017 Influenza trivalent, with pr eservative (Fluzone; Afluria) 6mo and older 04/07/2016,04/18/2015,03/25/2014,03/09,03/27/2012 Influenza, Unspecified 05/13/2021 [employer] SARS-CoV-2 COVID-19, mRNA, LNP-S, preservative free 10/19/2021,03/13/2021,08/18/2020,07/21 [...] 04/29 right ear OTHER SURGICAL HISTORY PROCEDURE: NE BIOPSY THYROID PERCUTANEOUS CORE NEEDLE; COMMENT: negative [...] DX:Alcohol abuse ; COMMENT: Hospitalized 12/2020 at [facility] d/t withdrawal Family History Medical History Relation [...] for your loved ones. For example, children's service supervisor or elderly care for an older adult? [...] Description 05/26/2025 10:00 AM EST Office Visit [facility] Hematology Oncology [address] [place] [phone] Darleen To MD [address] [place] [address] 07/12/2025 8:30 AM EST Office Visit Adult Medicine [facility] [address] [place] [phone] Xiao Campos PA [address] [place] [phone] Health Maintenance Due Date Last Done Comments Hepatitis A Vaccines (1 of 2 - Risk 2-dose series) 1964 RSV Immunization Adult Patients (1 - 1-dose 75+ series) 2021 COVID-19 Vaccine (2024- season) 2025 10/19/2021, 03/13/2021, 09/10/2020, Additional history [...] 12/27/2011 Zoster Vaccines Completed 07/05/2020, 11/2019, 03/27/2012 Depression Screening Completed 11/15/2024 Influenza Vaccine [...] EDT Anemia associated with malignant neoplastic disease ([facility] V24, [facility] V28) Essential hypertension Anxiety Mixed hyperlipidemia Pulmonary embolism, other, unspecified chronicity, unspecified whether acute cor pulmonale present ([facility] V24, [facility] V28) Deep vein thrombosis (DVT) of non-extremity vein, unspecified chronicity Gastroesophageal reflux disease without esophagitis CBC AND DIFFERENTIAL Routine 04/12/2025 1:28 PM EDT Anemia associated with malignant neoplastic disease ([facility] V24, [facility] V28) Essential hypertension Anxiety Mixed hyperlipidemia Pulmonary embolism, other, unspecified chronicity, unspecified whether acute cor pulmonale present ([facility] V24, [facility] V28) Deep vein thrombosis (DVT) of non-extremity vein, unspecified chronicity Gastroesophageal reflux disease without esophagitis COMPREHENSIVE METABOLIC PANEL Routine 04/12/2025 1:28 PM EDT Anemia associated with malignant neoplastic disease ([facility] V24, [facility] V28) Essential hypertension Anxiety Mixed hyperlipidemia Pulmonary embolism, other, unspecified chronicity, unspecified whether acute cor pulmonale present ([facility] V24, [facility] V28) Deep vein thrombosis (DVT) of non-extremity vein, unspecified chronicity Gastroesophageal reflux disease without esophagitis LIPID PANEL WITH REFLEX TO DIRECT LDL Routine 04/12/2025 1:28 PM EDT Anemia associated with malignant neoplastic disease (CMS/HCC V24, CMS/HCC V28) Essential hypertension Anxiety Mixed hyperlipidemia Pulmonary embolism, other, unspecified chronicity, unspecified whether acute cor pulmonale present (CMS/HCC V24, [facility]/HCC V28) Deep vein thrombosis (DVT) of non-extremity vein, unspecified chronicity Gastroesophageal reflux disease without esophagitis EXTERNAL CLINICAL LAB 04/07/2025 CBC WITH AUTO DIFFERENTIAL Routine 02/24/2025 10:43 AM EDT Prostate cancer metastatic to multiple sites ([facility]/HCC V24, [facility]/HCC V28) CBC AND DIFFERENTIAL Routine 02/24/2025 10:43 AM EDT Prostate cancer metastatic to multiple sites (CMS/HCC V24, CMS/HCC V28) COMPREHENSIVE METABOLIC PANEL Routine 02/24/2025 10:43 AM EDT Prostate cancer metastatic to multiple sites ([facility]/HCC V24, [facility]/HCC V28) PROSTATE SPECIFIC ANTIGEN DIAGNOSTIC Routine 02/24/2025 10:43 AM EDT Prostate cancer metastatic to multiple sites ([facility]/HCC V24, [facility]/HCC V28) HEPATITIS C SCREENING Routine 03/08/2013 from Last 3 Months or Most Recently Relevant to Health Maintenance Results * Lipid panel with reflex to direct LDL (04/12/2025 1:28 PM EDT) Cholesterol 166 0 - 200 mg/dL LAB CHEMISTRY METHOD 04/12/2025 4:49 PM EDT [facility] Triglycerides 140 0 - 150 mg/dL LAB CHEMISTRY METHOD 04/12/2025 4:49 PM EDT [facility] HDL 58 >=40 mg/dL LAB CHEMISTRY METHOD 04/12/2025 4:49 PM EDT [facility] LDL Calculated 80 0 - 100 mg/dL LAB CHEMISTRY METHOD 04/12/2025 4:49 PM T [facility] Comment:Estimated LDL Calcul ated using equation: Total cholesterol - HDL cholesterol - (Triglycerides/5) VLDL Cholesterol Brendon 28 mg/dL LAB CHEMISTRY METHOD 04/12/2025 4:49 PM EDT [facility] Non HDL Chol. (LDL+VLDL) 108 <145 mg/dL LAB CHEMISTRY METHOD 04/12/2025 4:49 PM EDT [facility] Chol/HDL Ratio 2.9 0.0 - 4.4 LAB CHEMISTRY METHOD 04/12/2025 4:49 PM EDT [facility] Blood Venous blood specimen / Unknown Venipuncture / Unknown 04/12/2025 1:28 PM EDT 04/12/2025 1:28 PM EDT Christopher LANGSTON LAB BLOOD ORDERABLES Felicity cordero Result [facility] [address] [place] [address], * (ABNORMAL) CBC auto differential (04/12/2025 1:28 PM EDT) Only the most recent of2 resultswithin the time period is included. WBC 5.7 4.8 - 10.8 K/mcL LAB HEMETOLOGY METHOD 04/12/2025 4:30 PM EDT [facility] RBC 4.30(L) 4.50 - 5.50 M/mcL LAB HEMETOLOGY METHOD 04/12/2025 4:30 PM EDT [facility] Hemoglobin 14.1 13.5 - 17.5 g/dL LAB HEMETOLOGY METHOD 04/12/2025 4:30 PM EDT [facility] Hematocrit 41.0(L) 42.0 - 54.0 % LAB HEMETOLOGY METHOD 04/12/2025 4:30 PM EDT [facility] MCV 96.2 79.0 - 98.0 FL LAB [facility]OLOGY [facility] MCH 33.1(H) 27.0 - 32.0 pcg LAB HEMETOLOGY METHOD 04/12/2025 4:30 PM EDT [facility] MCHC 34.4 32.0 - 37.0 g/dL LAB HEMETOLOGY METHOD 04/12/2025 4:30 PM [facility] RDW 12.9 11.0 - 15.0 % LAB HEMETOLOGY METHOD 04/12/2025 4:30 PM EDT [facility] Platelets 210 130 - 400 K/mcL LAB HEMETOLOGY METHOD 04/12/2025 4:30 PM T [facility] MPV 10.5 7.0 - 11.0 FL LAB HEMETOLOGY METHOD 04/12/2025 4:30 PM [facility] NRBC 0.0 <1.0 % LAB HEMETOLOGY METHOD 04/12/2025 4:30 PM EDT [facility] NRBC Absolute 0.00 <0.10 K/mcL LAB HEMETOLOGY METHOD 04/12/2025 4:30 PM [facility] Neutrophils Relative 61.9 % LAB HEMETOLOGY METHOD 04/12/2025 4:30 PM [facility] Lymphocytes Relative 21.2 % LAB [facility]EMETOLOGY [facility] Monocytes Relative 8.5 % LAB HEMETOLOGY METHOD 04/12/2025 4:30 PM EDT [facility] Eosinophils Relative 6.5 % LAB HEMETOLOGY METHOD [facility] Basophils Relative 1.4 % LAB HEMETOLOGY METHOD 04/12/2025 4:30 PM [facility] Immature Granulocytes Relative 0.5 % LAB HEMETOLOGY METHOD 04/12/2025 4:30 PM EDT [facility] Neutrophils Absolute 3.49 1.50 - 7.00 K/mcL LAB HEMETOLOGY METHOD 04/12/2025 4:30 PM EDT [facility] Lymphocytes Absolute 1.20 1.00 - 5.00 K/mcL LAB HEMETOLOGY METHOD 04/12/2025 4:30 PM EDT [facility] Monocytes Absolute 0.48 0.20 - 1.00 K/mcL LAB HEMETOLOGY METHOD 04/12/2025 4:30 PM EDT [facility] Eosinophils Absolute 0.37 0.00 - 0.50 K/mcL LAB HEMETOLOGY METHOD 04/12/2025 4:30 PM EDT [facility] Basophils Absolute 0.08 0.00 - 0.20 K/mcL LAB HEMETOLOGY METHOD 04/12/2025 4:30 PM EDT [facility] Immature Granulocytes Absolute 0.03 0.00 - 0.03 K/mcL LAB HEMETOLOGY METHOD 04/12/2025 4:30 PM EDT [facility] Blood Venous blood specimen / Unknown Venipuncture / Unknown 04/12/2025 1:28 PM EDT 04/12/2025 1:28 PM EDT us Christopher LANGSTON LAB BLOOD ORDERABLES Felicity l Result [facility] [address] [place] [address], * (ABNORMAL) Comprehensive metabolic panel (04/12/2025 1:28 PM EDT) Only the most recent of2 resultswithin the time period is included. Sodium 129(L) 133 - 145 mmol/L LAB CHEMISTRY METHOD 04/12/2025 4:49 PM EDT [facility] Potassium 4.6 3.5 - 5.5 mmol/L LAB CHEMISTRY METHOD 04/12/2025 4:49 PM [facility] Chloride 97 96 - 110 mmol/L LAB CHEMISTRY METHOD 04/12/2025 4:49 PM [facility] CO2 27 21 - 32 mmol/L LAB CHEMISTRY METHOD 04/12/2025 4:49 PM [facility] Anion Gap 5 3 - 11 LAB CHEMISTRY METHOD 04/12/2025 4:49 PM [facility] Glucose 108(H) 70 - 100 mg/dL LAB CHEMISTRY METHOD 04/12/2025 4:49 PM [facility] BUN 13 5 - 25 mg/dL LAB CHEMISTRY METHOD 04/12/2025 4:49 PM [facility] Creatinine 0.98 0.70 - 1.30 mg/dL LAB CHEMISTRY METHOD 04/12/2025 4:49 PM [facility] eGFR 79 >=60 mL/min/1. 73m2 LAB CHEMISTRY METHOD 04/12/2025 4:49 PM [facility] Comment:Calculation based on the Chronic Kidney Disease Epidemiology Collaboration (CKD-EPI) equation refit without adjustment for race. BUN/Creatinine Ratio 13.3 LAB CHEMISTRY METHOD 04/12/2025 4:49 PM [facility] Calcium 9.1 8.5 - 10.5 mg/dL LAB CHEMISTRY METHOD 04/12/2025 4:49 PM [facility] AST (SGOT) 16 10 - 42 unit/L LAB CHEMISTRY METHOD 04/12/2025 4:49 PM [facility] ALT (SGPT) 25 10 - 60 unit/L LAB CHEMISTRY METHOD 04/12/2025 4:49 PM [facility] Alkaline Phosphatase 52 42 - 121 unit/L LAB CHEMISTRY METHOD 04/12/2025 4:49 PM [facility] Total Protein 7.1 6.0 - 8.0 g/dL LAB CHEMISTRY METHOD 04/12/2025 4:49 PM EDT [facility] Albumin 4.0 3.2 - 5.0 g/dL LAB CHEMISTRY METHOD 04/12/2025 4:49 PM EDT [facility] Total Bilirubin 0.6 0.0 - 1.4 mg/dL LAB CHEMISTRY METHOD 04/12/2025 4:49 PM EDT [facility] Blood Venous blood specimen / Unknown Venipuncture / Unknown 04/12/2025 1:28 PM EDT 04/12/2025 1:28 PM EDT Christopher LANGSTON LAB BLOOD ORDERABLES Felicity l Result [facility] [address] [place] [address], [place] [phone] * External clinical lab (04/07/2025) Provider [facility] LAB BLOOD ORDERABLES Fin al Result * Prostate specific antigen diagnostic (02/24/2025 10:43 AM EDT) PSA 1.19 0.00 - 4.00 ng/mL LAB CHEMISTRY METHOD 02/24/2025 2:07 PM EDT [facility] Blood Venous blood specimen / Unknown Venipuncture / Unknown 02/24/2025 10:43 AM EDT 02/24/2025 11:24 AM EDT Narrative [facility] - 02/24/2025 2:07 PM EDT The Siemens Advia Centaur Chemiluminescent Immunoassay is used. Results obtained with different assay methods or kits cannot be used interchangeably. Results cannot be interpreted as absolute evidence of the presence or absence of malignant disease. Darleen To MD LAB BLOOD ORDERABLE S Final Result Performing Organization Address City/[facility]/ZIP Co de Phone Number [facility] [address] [place] [address], [place] [phone] * Hepatitis C Screening (03/08/2013) Hepatitis C Screening abstracted us Historical Provider MD HEALTH MAINTENANCE Final Result from Last 3 Months or Most Recently Relevant to Health Maintenance Insurance [facility] Care Teams Physician Neonatology Relationship Specialty Start Date End Date Christopher eRyes PA [address] [place] [phone] PCP - General Internal Medicine 06/17/24
--- OUTSIDE RECORDS SUMMARY | 2025-04-29 10:01 | XMS_ITS | Encounter Summary ---
Author Organization [facility] Address [address] [place] [address] Phone Care Team Providers Care Clinical Nursing Director Name Role Phone Christopher Reyes PA-C Primary Care Provider Encounter Details Date Type Department Care Team (Late st Contact Info) Description 06/13/2022 Documentation Only [facility] [address] [place] [phone] Rika Hahn PA Social History Tobacco Use [...] Visit [facility] [address] [place] [phone] Raoul Juan MD [address] [place] [phone] documented as of this encounter Visit Diagnoses Not on filedocumented in this encounter Care Teams Clinical Nursing Director Relationship Specialty Start Date End Date Christopher Reyes PA-C [address] [place] [phone] PCP - General Physician Fullerette 09/28/24 documented as of this encounter
--- OUTSIDE RECORDS SUMMARY | 2025-04-29 10:01 | XMS_ITS | Encounter Summary ---
Author Organization [facility] Address [address] [place] [address] Phone Care Team Providers Care Precision Grinder External Name Role Phone Christopher Reyes PA-C Primary Care Provider Encounter Details Date Type Department Care Team (Late st Contact Info) Description 03/21/2022 Documentation Only [facility] [address] [place] [phone] Rika Hahn PA Social History Tobacco Use [...] Visit [facility] [address] [place] [phone] Raoul Juan MD [address] [place] [phone] documented as of this encounter Visit Diagnoses Not on filedocumented in this encounter Care Teams Precision Grinder External Relationship Specialty Start Date End Date Christopher Reyes PA-C [address] [place] [phone] PCP - General Physician Burr Filer 09/28/24 documented as of this encounter
--- OUTSIDE RECORDS SUMMARY | 2025-04-29 10:01 | XMS_ITS ---
Author Organization [facility] Address [address] [place] [address] Care Team Providers Care Air Conditioning Engineer Name Role Phone Mike Brooks MD Primary [...] Date Treatment Medications Discontinue Reason Plan Provider [facility] LEUPROLIDE 22.5MG (ELIGARD) EVERY 3 MONTHS 03/25/2022 07/24/2023 leuprolide (ELIGARD) Therapy Complete Darleen Lanza MD Radiation Treatments * No radiation treatments are documented for this patient in [facility]. Treatments may have been administered in another system.
--- OUTSIDE RECORDS SUMMARY | 2025-04-29 10:01 | XMS_ITS | Encounter Summary ---
Author Organization [facility] Address [address] [place] [address] Phone Care Team Providers Care Route Clerk Name Role Phone Christopher Reyes PA-C Primary Care Provider Encounter Details Date Type Department Care Team (Late Contact Info) Description 02/16/2025 Documentation Only [facility] [address] [place] [phone] Phylicia Calvin [place] [address] [place] [phone] Social History Tobacco Use Types Packs/Day Years [...] Visit [facility] [address] [place] [phone] Raoul Juan MD [address] [place] [address] documented as of this encounter Visit Diagnoses Not on filedocumented in this encounter Care Teams Route Clerk Relationship Specialty Start Date End Date Christopher Reyes PA-C [address] [place] [phone] PCP - General Physician Management Intern 09/28/24 documented as of this encounter
== END 2025-04-29 10:15 | disposition home or self-care (01) ==
LOC: HO.HUSH 09:17
PROVIDERS: PCP Physician Assistant Medical; Visit Provider Urology
DX: C61 Malignant neoplasm of prostate (principal); C77.2 Secondary and unspecified malignant neoplasm of intra-abdominal lymph nodes
CPT/HCPCS: 99213

== ENCOUNTER → 2025-04-29 09:16 | Outpatient (BNVA) | payer BC, SELFPAY | PROVIDERS: PCP Physician Assistant Medical; Visit Provider Urology | DX: R39.15 Urgency of urination (principal) | CPT/HCPCS: 51798 ==